=== PATIENT | female | born 1995 | race Caucasian/White ===

== ENCOUNTER 2021-11-07 11:48 | Emergency (ER) | payer MEDICAID, SELFPAY ==
[2021-11-07] VITALS (12 sets, daily range): BP systolic 99–134; BP diastolic 67–89; PULSE 96–126; RESP 16–20; TEMP 35.9; O2SAT 96–100; BMI 29.9
--- NOTE | 2021-11-07 12:54 | ED_ITS ---
HPI - General Adult General Chief complaint: Nausea/Vomiting Stated complaint: Nausea, vomiting Time Seen by Provider: 11/07/21 12:00 History of Present Illness HPI narrative: This 26-year-old female is around 28 weeks and awoke this morning with abdominal pain, nausea, and vomiting. She had some lightheadedness and diaphoresis at that time. She came in by ambulance and thinks that she may have had brief loss of consciousness on the way here. She feels better at the time that I am visiting her. She does not report any bleeding or vaginal discharge. She has not had any fevers or diarrhea. Related Data Home Medications Medication Instructions Recorded Confirmed Iron (ferrous sulfate) 11/07/21 11/07/21 cholecalciferol (vitamin D3) 125 11/07/21 mcg (5,000 unit) tablet (Vitamin D3) olanzapine 5 mg tablet mg 11/07/21 omeprazole 20 mg capsule,delayed mg 11/07/21 release Previous Rx's Medication Instructions Recorded ondansetron HCl 4 mg tablet 4 mg PO Q6H #20 tabs 11/07/21 Allergies Allergy/AdvReac Type Severity Reaction Status Date / Time amoxicillin Allergy Unknown Verified 11/07/21 12:03 Review of Systems Status of ROS: Reports: 10 or more systems reviewed and unremarkable except as noted in History and below Narrative: Constitutional: No fevers, no weight gain or loss. Eyes: No discharge. No vision changes. HENT: No congestion, no sore throat, no ear pain. Cardiovascular: No chest pain, no palpitations. Respiratory: No shortness of breath, no wheezes, no cough. Gastrointestinal: Diffuse abdominal pain with nausea and vomiting. No diarrhea. Genitourinary: No dysuria, no hematuria. Musculoskeletal: Normal range of motion. Skin: No rashes, no pruritis. Neurological: No dizziness, weakness, sensory change, speech change. Endo/Heme/Allergies: No bruising or bleeding. No polydipsia. Pysch: no suicidality, no anxiety, no insomnia. All other systems reviewed and are negative. [facility] Medical History (Updated 11/07/21 @ 15:44 by Kan Espitia MD) Anemia GERD (gastroesophageal reflux disease) Second Social History Smoking Status: Never smoker Do you use any of these nicotine containing products: None Second hand tobacco smoke exposure: No How often do you have a drink containing alcohol: monthly or less How often do you have six or more drinks on one occasion: Never AUDIT-C Alcohol total score: 1 Non-prescribed substance use: denies use Exam Narrative: Exam Narrative: Constitutional: Well-developed, well-nourished, no acute distress. HEENT: Normocephalic, atraumatic. Neck: Normal range of motion. Nontender. Supple. Heart: Regular. No murmurs. Normal rate. Intact distal pulses. Lungs: Clear to auscultation. No chest discomfort. No wheezes, rhonchi, or rales. Abdomen: Normal bowel sounds. Gravid. Mild tenderness. No rebound tenderness. Genitalia: Deferred. Back: No midline tenderness. Normal range of motion. Extremities: Normal range of motion. No injury. Skin: Intact. No rash. Warm. No erythema or pallor. Neurologic: No altered sensation. No weakness. Alert and oriented. Psychiatric: No suicidality. No anxiety or depression. No insomnia. Nursing notes and vitals signs are reviewed. Const: Vital Signs, click to edit/add: Vital Signs - 24 hr 11/07/21 11:58 11/07/21 12:52 11/07/21 12:00 Temperature 96.6 F L 96.6 F L Pulse Rate [Right Pulse Oximeter] 96 97 97 Respiratory Rate 16 18 18 Blood Pressure [Ri ght Upper Arm] 126/82 126/82 120/89 Pulse Oximetry 100 99 99 Oxygen Delivery Me thod Room Air Room Air Room Air 11/07/21 12:30 11/07/21 13:00 11/07/21 13:30 Temperature Pulse Rate [Right Pulse Oximeter] 109 H 102 H 107 H Respiratory Rate 18 16 16 Blood Pressure [Ri ght Upper Arm] 121/76 113/67 122/70 Pulse Oximetry 99 99 96 Oxygen Delivery Wa thod Room Air Room Air Room Air 11/07/21 14:00 11/07/21 14:30 11/07/21 15:00 Temperature Pulse Rate [Right Pulse Oximeter] 104 H 126 H 111 H Respiratory Rate 16 20 18 Blood Pressure [Ri ght Upper Arm] 120/72 134/73 103/79 Pulse Oximetry 99 99 100 Oxygen Delivery Wa thod Room Air Room Air Room Air 11/07/21 15:30 Temperature Pulse Rate [Right Pulse Oximeter] 117 H Respiratory Rate 18 Blood Pressure [Ri ght Upper Arm] 122/74 Pulse Oximetry 99 Oxygen Delivery Me thod Room Air Course Vital Signs Vital signs: Initial Vital Signs Temperature 96.6 F L 11/07/21 11:58 Temperature Source Temporal Artery Scan 11/07/21 11:58 Pulse Rate 96 11/07/21 11:58 Pulse Rhythm 11/07/21 11:58 Respiratory Rate 16 11/07/21 11:58 Blood Pressure 126/82 11/07/21 11:58 Blood Pressure Mean 96 11/07/21 11:58 Blood Pressure Position Supine 11/07/21 11:58 Pulse Oximetry 100 11/07/21 11:58 Oxygen Delivery Method 11/07/21 11:58 Vital Signs Temperature 96.6 F L 11/07/21 11:58 Pulse Rate 96 11/07/21 11:58 Respiratory Rate 16 11/07/21 11:58 Blood Pressure 126/82 11/07/21 11:58 Pulse Oximetry 100 11/07/21 11:58 Oxygen Delivery Method 11/07/21 11:58 Temperature 96.6 F L 11/07/21 12:52 Pulse Rate 117 H 11/07/21 15:30 Respiratory Rate 18 11/07/21 15:30 Blood Pressure 122/74 11/07/21 15:30 Pulse Oximetry 99 11/07/21 15:30 Oxygen Delivery Method 11/07/21 15:30 Medical Decision Making MDM Narrative Medical decision making narrative: This patient comes in with abdominal pain, nausea, and vomiting. She states that the abdominal pain is not constant. At times there is absolutely no pain and then other times it arises. She is about 28 weeks and was evaluated by the OB department with sabrina aquino. I also used bedside ultrasound to look directly at her . These results are reassuring. She received IV fluids, and Zofran. She has had some improvement of her symptoms but continues to have episodes of abdominal pain. Her lab results returned with normal findings except for a significant increase in her white blood cell count of her blood. A couple weeks ago it was measured at 810 today it is at 18. She has not had any fevers. I did connect with the OB physician on-call, Dr. Sanchez, to review these matters. She recommended the patient follow-up with OBGYN clinic or return if recurrent or worsening symptoms happen. Lab Data Labs: Lab Results 11/07/21 11/07/21 11/07/21 Range/Units 13:29 13:29 14:25 WBC 18.22 H (4.50-11.00) K/uL RBC 3.89 L (4.00-5.20) m/uL Hgb 11.6 L (12.0-16.0) gm/dL Hct 34.0 (33.0-51.0) % MCV 87 (80-100) fL MCH 30 (26-34) pg MCHC 34 (32-36) gm/dL RDW Coeff of Ana M 12.7 (11.5-15.5) % Plt Count 261 (140-440) K/uL Neut % (Auto) 86.0 H (42.0-72.0) % Lymph % (Auto) 7.1 L (20-44) % [place] % (Auto) 5.6 (0.0-11.0) % Eos % (Auto) 0.3 (0.0-7.0) % Baso % (Auto) 0.1 (0.0-3.0) % Neut # (Auto) 15.70 H (1.7-7.0) K/uL Lymph # (Auto) 1.30 (0.90-2.90) K/uL [place] # (Auto) 1.00 H (0.00-0.90) K/UL Eos # (Auto) 0.10 (0.00-0.50) K/uL Baso # (Auto) 0.00 (0.00-0.30) K/uL Abs Immat Gran (auto) 0.16 (0.00-0.30) K/uL Sodium 136 (135-149) mmol/L Potassium 3.9 (3.6-5.1) mmol/L Chloride 104 (96-114) mmol/L Carbon Dioxide 23 (20-32) mmol/L BUN 8 (5-24) mg/dL Creatinine 0.5 (0.5-1.5) mg/dL Estimated Creat Clear 147.23 Estimated GFR 133 ml/min Glucose 86 (60-115) mg/dL Calcium 8.6 (8.4-10.6) mg/dL Urine Color Yellow (Yellow) Urine Appearance Clear (Clear) Urine pH 6.0 (5.0-8.5) Ur Specific [place] >= 1.030 (1.000-1.030) Urine Protein 1+ A (Negative) Urine Glucose (UA) Negative (Negative) Urine Ketones 4+ A (Negative) Urine Blood Negative (Negative) Urine Nitrite Negative (Negative) Urine Bilirubin 1+ A (Negative) Urine Urobilinogen 1.0 (0.2-1.0) Ur Leukocyte Esterase Negative (Negative) Urine RBC 0-2 (0-2) Urine WBC 2-5 (0-5) Ur Squamous Epith Cells Few (None-Few) Calcium Oxalate Crystal Moderate A (None) Urine Bacteria Moderate A (None) Discharge Plan Discharge Clinical Impression: Gastroenteritis, Patient Disposition: Home, Self-Care Condition: Stable Instructions: Acute Nausea and Vomiting (ED) Additional Instructions: Take medication as needed and indicated. Follow up with OBGYN clinic or return if recurrent or worsening symptoms happen. Prescriptions: New ondansetron HCl 4 mg tablet 4 mg PO Q6H Qty: 20 0RF No Action olanzapine 5 mg tablet Label Comments: TAKE 1 TABLET BY MOUTH THREE TIMES DAILY NEEDED omeprazole 20 mg capsule,delayed release(DR/EC) cholecalciferol (vitamin D3) [Vitamin D3] 125 mcg (5,000 unit) tablet Label Comments: TAKE 1 TABLET BY MOUTH DAILY WITH A FATTY FOOD Iron (ferrous sulfate) Follow Up/Referrals: Juliet Farrell MD [Primary Care Provider] - Stand Alone Forms: [facility] Info Instructions
[2021-11-07] MEDS: 0.9 % SODIUM CHLORIDE 1000 ml 1,000 ML IV (13:27)
[2021-11-07] MEDS: ONDANSETRON 2 MG/ML inj 4 MG IVP (13:27)
[2021-11-07] MEDS: PANTOPRAZOLE SODIUM 40 MG INJ IVP (13:27)
[2021-11-07 13:35] LABS: Basophils Percent Auto 0.1 % (0.0-3.0); Eosinophils Percent Auto 0.3 % (0.0-7.0); Hemoglobin* 11.6 gm/dL (12.0-16.0); Immature Granulocytes Abs Auto 0.16 K/uL (0.00-0.30); Lymphocytes Percent Auto 7.1 % (20-44); Mean Corpuscular HGB Conc 34 gm/dL (32-36); Mean Corpuscular Hemoglobin 30 pg (26-34); Mean Corpuscular Volume 87 fL (80-100); Monocytes Percent Auto 5.6 % (0.0-11.0); Platelet Count* 261 K/uL (140-440); RDW Coefficient of Variation % 12.7 % (11.5-15.5); Red Blood Count 3.89 m/uL (4.00-5.20); White Blood Count* 18.22 K/uL (4.50-11.00)
[2021-11-07 13:38] LABS: Slide Review Reflex No
[2021-11-07 13:51] LABS: Chloride* 104 mmol/L (96-114); Potassium* 3.9 mmol/L (3.6-5.1); Sodium* 136 mmol/L (135-149)
[2021-11-07 13:54] LABS: Blood Urea Nitrogen* 8 mg/dL (5-24); Calcium* 8.6 mg/dL (8.4-10.6); Carbon Dioxide* 23 mmol/L (20-32); Creatinine* 0.5 mg/dL (0.5-1.5); Est. Creatinine Clearance* 147.23; Estimated Glomerular Filt Rate 133 ml/min; Glucose* 86 mg/dL (60-115)
--- NOTE | 2021-11-07 14:09 | PC.NURSE ---
per OB staff the FHT is 140. have them down doing a NST on patient. patient is laying on the left sideeeee
--- NOTE | 2021-11-07 14:22 | PC.OBNST ---
Was asked to come to ED to do an NST on 28 week pt who is experiencing nausea, vomiting, and lower abdominal pain. Pt. had a reactive NST that was appropriate for her gestational age. Asked pt. to taryn her contractions with the button, and they ranged anywhere from 1.5-16 minutes apart. Pt. does not appear to be in pain during these. Pt. receiving IV fluids per ED. Labs done per ED. See [facility] for NST documentation. *Note to provider: If an addendum is required, open the patient's chart and click on the note under the Nurse/Allied Health tab.
[2021-11-07 14:44] LABS: Appearance Urine Clear (Clear); Bilirubin Urine 1+ (Negative); Blood Urine Negative (Negative); Color Urine Yellow (Yellow); Glucose Urine Negative (Negative); Ketones Urine 4+ (Negative); Leukocyte Esterase Urine Negative (Negative); Nitrite Urine Negative (Negative); Protein Urine 1+ (Negative); Specific Gravity Urine >= 1.030 (1.000-1.030)
[2021-11-07 15:07] LABS: RBC Urine 0-2 (0-2); Squamous Epithelial Cell Urine Few (None-Few)
[2021-11-07 15:08] LABS: Bacteria Urine Moderate
[2021-11-07 15:10] LABS: Calcium Oxalate Crystals Urine Moderate
--- NOTE | 2021-11-07 15:27 | ED.NURSE ---
patient is still having pain in the lower abdomen and at the umbilicus below. rated at 5/10 scale and is feeling nauseated. patient is watching tv and resting in room. updated Dr. Espitia and is planning to go talk with patient and consulted with Dr. Sanchez
--- NOTE | 2021-11-08 12:23 | PC.OBNST ---
NST Note NST Note Start: 11/08/21 12:15 Freq: ONCE Status: Active Protocol: Document 11/07/21 14:00 ANNA (Rec: 11/08/21 12:20 AM [id number]) NST Note 2 Para (# of births) 1 Patient Presented with Complaint(s) of Nausea and vomiting Reactive Yes Appropriate for Gestational Age Yes Nikunj Rene Date 11/07/21 Reactive Yes Appropriate for Gestational Age Yes Ya Horta Date 11/07/21 OB NST charge Yes Complete NST Note via Write Note Yes The provider's electronic signature indicates the NST is reactive/appropriate for gestational age. *Note to provider: If an addendum is required, open the patient's chart and click on the note under the Nurse/Allied Health tab.
--- NOTE | 2021-11-08 13:56 | PC.OBNST ---
NST Note NST Note Start: 11/08/21 12:15 Freq: ONCE Status: Active Protocol: Document 11/07/21 14:00 ANNA (Rec: 11/08/21 12:20 AM [id number]) NST Note 2 Para (# of births) 1 Patient Presented with Complaint(s) of Nausea and vomiting Reactive Yes Appropriate for Gestational Age Yes Niknuj Rene Date 11/07/21 Reactive Yes Appropriate for Gestational Age Yes Ya Horta Date 11/07/21 OB NST charge Yes Complete NST Note via Write Note Yes The provider's electronic signature indicates the NST is reactive/appropriate for gestational age. *Note to provider: If an addendum is required, open the patient's chart and click on the note under the Nurse/Allied Health tab.
== END 2021-11-07 16:40 | disposition home or self-care (01) ==
PROVIDERS: Emergency Provider Emergency Medicine Emergency Medical Services; PCP Family Medicine
DX: K52.9 Noninfective gastroenteritis and colitis, unspecified (principal); Z3A.28 28 weeks gestation of pregnancy
CPT/HCPCS: 36415; 59025; 80048; 81001; 85025; 87086; 96374; 96375; 99284; C9113; J2405; J7030

== ENCOUNTER 2021-11-27 20:07 | Outpatient (CLI) | payer MEDICAID, SELFPAY ==
[2021-11-27] VITALS (13 sets, daily range): BP systolic 124; BP diastolic 80; PULSE 93–120; TEMP 36.8; O2SAT 96–99
[2021-11-27 20:54] LABS: Appearance Urine Slightly Cloudy (Clear); Bilirubin Urine Negative (Negative); Blood Urine Negative (Negative); Color Urine Yellow (Yellow); Glucose Urine 1+ (Negative); Ketones Urine Negative (Negative); Leukocyte Esterase Urine Negative (Negative); Nitrite Urine Negative (Negative); Protein Urine Negative (Negative); Urobilinogen Urine 0.2 (0.2-1.0)
[2021-11-27 21:11] LABS: Amorphous Sediment Urine Few; Bacteria Urine Moderate; RBC Urine 0-2 (0-2); Squamous Epithelial Cell Urine Few (None-Few); WBC Urine 0-2 (0-5)
[2021-11-27 21:15] LABS: Amnisure Rom* Negative
--- NOTE | 2021-11-27 22:03 | PC.OBNST ---
NST Note NST Note Start: 11/27/21 20:16 Freq: ONCE Status: Discharge Protocol: Document 11/27/21 21:25 MICHAEL (Rec: 11/27/21 22:03 MICHAEL [id number]) NST Note 2 Para (# of births) 1 EDC 01/25/22 Gestational Age In Weeks & Days 31 Weeks & 4 Days High Risk Factors Diabetes - Gestational Diet Controlled Patient Presented with Complaint(s) of Contractions/cramping,Pain, Other If Pain, describe location Cramping in abdomen and low back, lightning crotch Other Complaints Lost mucus plug, watery discharge associated with this Reactive Yes Appropriate for Gestational Age Yes RN Raúl RN Date 11/27/21 Reactive Yes Appropriate for Gestational Age Yes SANTIAGO Torres RN Date 11/27/21 OB NST charge Yes Complete NST Note via Write Note Yes The provider's electronic signature indicates the NST is reactive/appropriate for gestational age. *Note to provider: If an addendum is required, open the patient's chart and click on the note under the Nurse/Allied Health tab.
--- NOTE | 2021-11-27 22:04 | PC.OBNST ---
NST Note NST Note Start: 11/27/21 20:16 Freq: ONCE Status: Discharge Protocol: Document 11/27/21 21:25 MICHAEL (Rec: 11/27/21 22:03 MICHAEL [id number]) NST Note 2 Para (# of births) 1 EDC 01/25/22 Gestational Age In Weeks & Days 31 Weeks & 4 Days High Risk Factors Diabetes - Gestational Diet Controlled Patient Presented with Complaint(s) of Contractions/cramping,Pain, Other If Pain, describe location Cramping in abdomen and low back, lightning crotch Other Complaints Lost mucus plug, watery discharge associated with this Reactive Yes Appropriate for Gestational Age Yes RN Raúl RN Date 11/27/21 Reactive Yes Appropriate for Gestational Age Yes SANTIAGO Torres RN Date 11/27/21 OB NST charge Yes Complete NST Note via Write Note Yes The provider's electronic signature indicates the NST is reactive/appropriate for gestational age. *Note to provider: If an addendum is required, open the patient's chart and click on the note under the Nurse/Allied Health tab.
== END 2021-11-27 21:31 | disposition home or self-care (01) ==
LOC: OB 20:14 → OB OUT 11-28 11:39
PROVIDERS: PCP Family Medicine; Visit Provider Family Medicine
DX: O47.03 False labor before 37 completed weeks of gestation, third trimester (principal); Z3A.31 31 weeks gestation of pregnancy
CPT/HCPCS: 59025; 81003; 81015; 84112; 87086; 99213

== ENCOUNTER 2021-12-09 20:53 | Emergency (ER) | payer BC, SELFPAY ==
[2021-12-09 21:06] VITALS: BP 103/71; PULSE 109; RESP 18; TEMP 36.3; O2SAT 100; BMI 30.2
--- NOTE | 2021-12-09 21:27 | ED_ITS ---
HPI - General Adult General Chief complaint: Nausea/Vomiting Stated complaint: 33 weeks , vomiting, high blood sugar Time Seen by Provider: 12/09/21 21:14 History of Present Illness HPI narrative: Pt is a 26 year old woman who presents with nausea and vomiting the last several days. She has diet controlled gestational diabetes as well as anemia. Pt has some dysuria as well. Her has otherwise been going without any further issues per pt. No vaginal discharge or contractions. No overt abd pain. Pt comes in as she feels dehydrated. She took Zofran at home with mild improvement. No fever or chills. Related Data Home Medications Medication Instructions Recorded Confirmed Iron (ferrous sulfate) 11/07/21 11/07/21 cholecalciferol (vitamin D3) 125 11/07/21 mcg (5,000 unit) tablet (Vitamin D3) olanzapine 5 mg tablet mg 11/07/21 omeprazole 20 mg capsule,delayed mg 11/07/21 release duloxetine 60 mg capsule,delayed mg PO 12/09/21 release Previous Rx's Medication Instructions Recorded ondansetron HCl 4 mg tablet 4 mg PO Q6H #20 tabs 11/07/21 Allergies Allergy/AdvReac Type Severity Reaction Status Date / Time amoxicillin Allergy Unknown Verified 12/09/21 21:10 Review of Systems Status of ROS: Reports: 10 or more systems reviewed and unremarkable except as noted in History and below [facility] Medical History Anemia GERD (gastroesophageal reflux disease) Second Social History Smoking Status: Former smoker Do you use any of these nicotine containing products: None Second hand tobacco smoke exposure: No How often do you have a drink containing alcohol: never AUDIT-C Alcohol total score: 0 Non-prescribed substance use: denies use Exam Narrative: Exam Narrative: EXAM GENERAL: Patient appears comfortable and well. EYES: No scleral icterus. ENT: Tympanic membranes and oropharynx normal. THYROID: no thyroid nodules or thyromegaly. LYMPH: No supraclavicular or cervical lymphadenopathy. SKIN: Visible skin seen during exam normal or with benign process only. EXT: No dependent lower extremity pedal edema. HEART: Regular rate and rhythm with no murmurs, rubs, or gallops. LUNGS: Clear to auscultation bilaterally with no crackles or wheezes. ABD: Roughly 33 week uterus palpated. No pain to palpation normal bowel sounds throughout. PSYCH: Good eye contact, speech is not pressured. Const: Vital Signs, click to edit/add: Vital Signs - 24 hr 12/09/21 21:06 12/09/21 22:55 Temperature 97.3 F L Pulse Rate [Left P ulse Oximeter] 109 H 96 Respiratory Rate 18 18 Blood Pressure [Ri ght Upper Arm] 103/71 99/63 Pulse Oximetry 100 100 Oxygen Delivery Me thod Room Air Course Course Hospital Course: IV established. UA CBC basic metabolic panel lactate collected 1 L of normal saline given. Reevaluation(s) Reevaluation #1: OB assessment normal Urine Protein/Cr ratio less than 0.3. Consultations Consultation #1: Pt feeling better with hydration. Spoke to Nilsa HASTINGS who recommends urine protein/cr ratio which is now pending. Continue hydration. Vital Signs Vital signs: Initial Vital Signs Temperature 97.3 F L 12/09/21 21:06 Temperature Source Temporal Artery Scan 12/09/21 21:06 Pulse Rate 109 H 12/09/21 21:06 Respiratory Rate 18 12/09/21 21:06 Blood Pressure 103/71 12/09/21 21:06 Blood Pressure Mean 81 12/09/21 21:06 Blood Pressure Position Sitting 12/09/21 21:06 Pulse Oximetry 100 12/09/21 21:06 Oxygen Delivery Method 12/09/21 21:06 Vital Signs Temperature 97.3 F L 12/09/21 21:06 Pulse Rate 109 H 12/09/21 21:06 Respiratory Rate 18 12/09/21 21:06 Blood Pressure 103/71 12/09/21 21:06 Pulse Oximetry 100 12/09/21 21:06 Oxygen Delivery Method 12/09/21 21:06 Temperature 97.3 F L 12/09/21 21:06 Pulse Rate 96 12/09/21 22:55 Respiratory Rate 18 12/09/21 22:55 Blood Pressure 99/63 12/09/21 22:55 Pulse Oximetry 100 12/09/21 22:55 Oxygen Delivery Method 12/09/21 21:06 Medical Decision Making MDM Narrative Medical decision making narrative: Pt is 33 weeks with nausea vomiting and a small amount of protein in her urine. Protein/Cr ratio reassuring. Pt feeling better after hydration. Pt had unremarkable OB assessment. Differential Diagnosis Differential Diagnosis: , Pre-eclampsia, Gastroenteritis, Viral Syndrome Lab Data Labs: Lab Results 12/09/21 12/09/21 12/09/21 Range/Units 21:20 21:20 21:42 WBC 7.52 (4.50-11.00) K/uL RBC 3.81 L (4.00-5.20) m/uL Hgb 11.1 L (12.0-16.0) gm/dL Hct 33.0 (33.0-51.0) % MCV 87 (80-100) fL MCH 29 (26-34) pg MCHC 34 (32-36) gm/dL RDW Coeff of Ana M 13.5 (11.5-15.5) % Plt Count 230 (140-440) K/uL Neut % (Auto) 71.8 (42.0-72.0) % Lymph % (Auto) 17.2 L (20-44) % [place] % (Auto) 8.4 (0.0-11.0) % Eos % (Auto) 1.5 (0.0-7.0) % Baso % (Auto) 0.3 (0.0-3.0) % Neut # (Auto) 5.41 (1.7-7.0) K/uL Lymph # (Auto) 1.30 (0.90-2.90) K/uL [place] # (Auto) 0.60 (0.00-0.90) K/UL Eos # (Auto) 0.11 (0.00-0.50) K/uL Baso # (Auto) 0.02 (0.00-0.30) K/uL Abs Immat Gran (auto) 0.06 (0.00-0.30) K/uL Sodium (135-149) mmol/L Potassium (3.6-5.1) mmol/L Chloride (96-114) mmol/L Carbon Dioxide (20-32) mmol/L BUN (5-24) mg/dL Creatinine (0.5-1.5) mg/dL Estimated Creat Clear Estimated GFR ml/min Glucose (60-115) mg/dL Lactate (0.5-1.9) mmol/L Calcium (8.4-10.6) mg/dL Urine Color Yellow (Yellow) Urine Appearance Clear (Clear) Urine pH 6.0 (5.0-8.5) Ur Specific [place] 1.015 (1.000-1.030) Urine Protein 1+ A (Negative) Urine Glucose (UA) Negative (Negative) Urine Ketones Negative (Negative) Urine Blood Negative (Negative) Urine Nitrite Negative (Negative) Urine Bilirubin Negative (Negative) Urine Urobilinogen 2.0 A (0.2-1.0) Ur Leukocyte Esterase Negative (Negative) Urine RBC 0-2 (0-2) Urine WBC 0-2 (0-5) Ur Squamous Epith Cells Few (None-Few) Amorphous Sediment Few A (None) Urine Bacteria Many A (None) Urine Creatinine 117.7 mg/dL Protein/Creatinin Ratio 0.20 H (0-0.19) Urine Total Protein 29 mg/dL 12/09/21 12/09/21 Range/Units 21:42 21:44 WBC (4.50-11.00) K/uL RBC (4.00-5.20) m/uL Hgb (12.0-16.0) gm/dL Hct (33.0-51.0) % MCV (80-100) fL MCH (26-34) pg MCHC (32-36) gm/dL RDW Coeff of Ana M (11.5-15.5) % Plt Count (140-440) K/uL Neut % (Auto) (42.0-72.0) % Lymph % (Auto) (20-44) % [place] % (Auto) (0.0-11.0) % Eos % (Auto) (0.0-7.0) % Baso % (Auto) (0.0-3.0) % Neut # (Auto) (1.7-7.0) K/uL Lymph # (Auto) (0.90-2.90) K/uL [place] # (Auto) (0.00-0.90) K/UL Eos # (Auto) (0.00-0.50) K/uL Baso # (Auto) (0.00-0.30) K/uL Abs Immat Gran (auto) (0.00-0.30) K/uL Sodium 134 L (135-149) mmol/L Potassium 3.8 (3.6-5.1) mmol/L Chloride 103 (96-114) mmol/L Carbon Dioxide 23 (20-32) mmol/L BUN 8 (5-24) mg/dL Creatinine 0.5 (0.5-1.5) mg/dL Estimated Creat Clear 147.23 Estimated GFR 133 ml/min Glucose 103 (60-115) mg/dL Lactate 0.9 (0.5-1.9) mmol/L Calcium 8.4 (8.4-10.6) mg/dL Urine Color (Yellow) Urine Appearance (Clear) Urine pH (5.0-8.5) Ur Specific [place] (1.000-1.030) Urine Protein (Negative) Urine Glucose (UA) (Negative) Urine Ketones (Negative) Urine Blood (Negative) Urine Nitrite (Negative) Urine Bilirubin (Negative) Urine Urobilinogen (0.2-1.0) Ur Leukocyte Esterase (Negative) Urine RBC (0-2) Urine WBC (0-5) Ur Squamous Epith Cells (None-Few) Amorphous Sediment (None) Urine Bacteria (None) Urine Creatinine mg/dL Protein/Creatinin Ratio (0-0.19) Urine Total Protein mg/dL Discharge Plan Discharge Clinical Impression: Gastroenteritis Condition: Stable Instructions: Acute Nausea and Vomiting (ED) Additional Instructions: Continue current medications Follow up with your doctor Lyndsey as needed for nausea Advance diet as tolerated Discharge Diet: Regular Prescriptions: No Action olanzapine 5 mg tablet Label Comments: TAKE 1 TABLET BY MOUTH THREE TIMES DAILY NEEDED omeprazole 20 mg capsule,delayed release(DR/EC) cholecalciferol (vitamin D3) [Vitamin D3] 125 mcg (5,000 unit) tablet Label Comments: TAKE 1 TABLET BY MOUTH DAILY WITH A FATTY FOOD Iron (ferrous sulfate) ondansetron HCl 4 mg tablet 4 mg PO Q6H Qty: 20 0RF duloxetine 60 mg capsule,delayed release(DR/EC) PO Label Comments: TAKE 1 CAPSULE BY MOUTH TWICE DAILY Follow Up/Referrals: Juliet Farrell MD [Primary Care Provider] - Stand Alone Forms: [employer] Info Instructions
[2021-12-09 21:29] LABS: Appearance Urine Clear (Clear); Bilirubin Urine Negative (Negative); Blood Urine Negative (Negative); Color Urine Yellow (Yellow); Glucose Urine Negative (Negative); Ketones Urine Negative (Negative); Leukocyte Esterase Urine Negative (Negative); Nitrite Urine Negative (Negative); Protein Urine 1+ (Negative); Specific Gravity Urine 1.015 (1.000-1.030)
[2021-12-09 21:48] LABS: Lactate* 0.9 mmol/L (0.5-1.9)
[2021-12-09 21:50] LABS: Basophils Absolute Auto 0.02 K/uL (0.00-0.30); Basophils Percent Auto 0.3 % (0.0-3.0); Eosinophils Absolute Auto 0.11 K/uL (0.00-0.50); Eosinophils Percent Auto 1.5 % (0.0-7.0); Hemoglobin* 11.1 gm/dL (12.0-16.0); Immature Granulocytes Abs Auto 0.06 K/uL (0.00-0.30); Lymphocytes Percent Auto 17.2 % (20-44); Mean Corpuscular HGB Conc 34 gm/dL (32-36); Mean Corpuscular Hemoglobin 29 pg (26-34); Mean Corpuscular Volume 87 fL (80-100); Monocytes Percent Auto 8.4 % (0.0-11.0); Neutrophils Absolute Auto 5.41 K/uL (1.7-7.0); Neutrophils Percent Auto 71.8 % (42.0-72.0); Platelet Count* 230 K/uL (140-440); RDW Coefficient of Variation % 13.5 % (11.5-15.5); Red Blood Count 3.81 m/uL (4.00-5.20); White Blood Count* 7.52 K/uL (4.50-11.00)
[2021-12-09 21:51] LABS: Slide Review Reflex No
[2021-12-09] MEDS: 0.9 % SODIUM CHLORIDE 1000 ml 1,000 ML IV ×2 (21:54→23:52)
[2021-12-09 21:59] LABS: RBC Urine 0-2 (0-2); WBC Urine 0-2 (0-5)
[2021-12-09 22:00] LABS: Amorphous Sediment Urine Few; Bacteria Urine Many; Squamous Epithelial Cell Urine Few (None-Few)
[2021-12-09 22:03] LABS: Chloride* 103 mmol/L (96-114); Potassium* 3.8 mmol/L (3.6-5.1); Sodium* 134 mmol/L (135-149)
[2021-12-09 22:05] LABS: Creatinine* 0.5 mg/dL (0.5-1.5); Est. Creatinine Clearance* 147.23; Estimated Glomerular Filt Rate 133 ml/min
[2021-12-09 22:06] LABS: Blood Urea Nitrogen* 8 mg/dL (5-24); Calcium* 8.4 mg/dL (8.4-10.6); Carbon Dioxide* 23 mmol/L (20-32); Glucose* 103 mg/dL (60-115)
--- NOTE | 2021-12-09 22:53 | PC.NURSE ---
RN went to assess pt. in the ED, unable to chart in OB in ED assessment intervention. Patient is a who's is complicated by newly diagnosed GDM. Patient reports that her blood glucoses have been good up until the last week when she has had some higher readings. Pt. reports that her primary care provider has had her testing her urine ketones, which have been elevated as well. Pt. states that she has been vomiting for over 24 hours and has had a few episodes of diarrhea. She has not been having any contractions other than some mild kym thomas which she reports have not even been timeable. Baby is moving as normal, she is not having any sort of leaking of fluid or vaginal bleeding. Patient reports that this has been a fairly uncomplicated until a few weeks ago. No other OB related concerns. Patient had a reactive NST with no contractions noted, baseline of 135bpm, accels present, decels absent. Bhavesh Crowe RNC
[2021-12-09 22:55] VITALS: BP 99/63; PULSE 96; RESP 18; O2SAT 100
[2021-12-09] MEDS: ONDANSETRON 2 MG/ML inj 4 MG IVP (23:00)
[2021-12-09 23:22] LABS: Total Protein Urine 29 mg/dL
[2021-12-09 23:23] LABS: Creatinine Urine 117.7 mg/dL
[2021-12-09] MEDS: MAG HYDROX/ALUMINUM HYD/SIMETH 30 ML ORAL.SUSP PO (23:52)
[2021-12-10 00:56] VITALS: BP 100/57; PULSE 93; RESP 18; O2SAT 100
--- NOTE | 2021-12-10 09:15 | PC.OBNST ---
NST Note NST Note Start: 12/09/21 21:45 Freq: ONCE Status: Discharge Protocol: Document 12/09/21 22:53 ROBERT (Rec: 12/10/21 08:21 AM [id number]) NST Note 2 Para (# of births) 1 EDC 01/25/22 Gestational Age In Weeks & Days 33 Weeks & 3 Days High Risk Factors Diabetes - Gestational Diet Controlled Patient Presented with Complaint(s) of Nausea and vomiting Other Complaints See Nurses note Reactive Yes Appropriate for Gestational Age Yes RN Tana Crowe; RNC Date 12/09/21 Reactive Yes Appropriate for Gestational Age Yes Macho Worley: SANTIAGO Date 12/09/21 OB NST charge Yes Complete NST Note via Write Note Yes The provider's electronic signature indicates the NST is reactive/appropriate for gestational age. *Note to provider: If an addendum is required, open the patient's chart and click on the note under the Nurse/Allied Health tab.
== END 2021-12-10 01:00 | disposition home or self-care (01) ==
PROVIDERS: Emergency Provider Internal Medicine; PCP Family Medicine
DX: K52.9 Noninfective gastroenteritis and colitis, unspecified (principal); O26.893 Other specified pregnancy related conditions, third trimester; Z3A.33 33 weeks gestation of pregnancy
CPT/HCPCS: 36415; 59025; 80048; 81003; 81015; 82570; 83605; 84156; 85025; 87086; 96361; 96374; 99284; A9270; J2405; J7030

== ENCOUNTER 2022-01-07 13:56 | Outpatient (CLI) | payer BC, SELFPAY ==
--- OUTSIDE RECORDS SUMMARY | 2022-01-07 13:58 | XMS_ITS | Clinical Summary ---
:1995 Author Organization [facility] [place] [address] Care Team Providers Name Role Phone Juliet Horn MD Primary Care Provider [phone] Unavailable Allergies Active Allergy Reactions Severity Noted Date Comments Amoxicillin 07/10/2007 Parents do not give this. Siblings have an allergy to i t. Medications Medication Sig Dispensed Refills Start End Status Date Date albuterol Inhale 3 mL via 1 box 0 02/16/20 Acti ve (PROVENTIL) 0.083 % a nebulizer 17 neb every 4 hours solutionIndications: if needed. Cough albuterol HFA Inhale 1-2 1 Inhaler 1 01/23/20 Activ e (PROVENTIL HFA) 90 Puffs by mouth 18 mcg/actuation every 4 hours inhalerIndications: if needed. Mild intermittent asthma without complication vit 28/iron Take 1 Tablet 0 06/14/19 Active fum/folic by mouth once 22 (multivitamin daily. folic acid 1 mg) OLANzapine (ZYPREXA) 1 Tablet (5 mg) 0 06/18/19 Active 5 mg tablet 3 times daily. 22 NEEDED DULoxetine Take 1 Capsule 180 Capsule 0 06/18/19 Ac tive (CYMBALTA) 60 mg (60 mg) by 22 Delayed-release mouth 2 times capsuleIndications: daily. Posttraumatic stress disorder ferrous Take by mouth. 90 Capsule 1 11/01/19 Acti ve bis-glycinate 22 chelate (iron bisglycinate chelate) 28 mg iron capIndications: Anemia during in second trimester ondansetron (ZOFRAN) Take 4 mg by 0 11/08/19 Active 4 mg tablet mouth four 22 times daily 6 hours apart. acetone, urine, test For personal 50 Each 1 11/30/19 Active (Ketone Urine Test) use once daily 22 stripIndications: due to Gestational diabetes gestational mellitus (GDM) in diabetes third trimester, gestational diabetes method of control unspecified blood sugar Dispense item 150 Each 3 11/30/19 Acti ve diagnostic covered by pt 22 (Accu-Chek Guide ins. O99.810 test strips) Gestational DM stripIndications: - Test 4 Gestational diabetes times/day. New mellitus (GDM) in diabetes third trimester, gestational diabetes method of control unspecified lancets (Accu-Chek Dispense item 100 Each 0 11/30/19 Active Softclix covered by pt 22 Lancets)Indications: ins. O99.810 Gestational diabetes Gestational DM mellitus (GDM) in - Test 4 third trimester, times/day. New gestational diabetes diabetes method of control unspecified ondansetron (ZOFRAN Place 1-2 30 Tablet 0 12/27/19 Active ODT) 4 mg Tablets (4-8 22 disintegrating mg) on the tabletIndications: tongue every 8 Nausea and vomiting, hours if needed unspecified vomiting for type Nausea/Vomiting . omeprazole Take 2 Capsules 180 Capsule 1 12/27/19 A ctive (PRILOSEC) 20 mg (40 mg) by 22 Delayed-Release mouth once capsuleIndications: daily before a Gastroesophageal meal. reflux disease, unspecified whether esophagitis present omeprazole Take 1 Capsule 90 Capsule 1 10/17/19 Dis continued (PRILOSEC) 20 mg (20 mg) by 22 022 (R eorder Delayed-Release mouth once (E- cancel not capsuleIndications: daily before a sent)) Gastroesophageal meal. reflux disease, unspecified whether esophagitis present Active Problems Problem Noted Date , supervision, high-risk, third trimester 08/2021 Overview: Growth ultrasound 12/30/21 FINDINGS: Sonographic imaging demonstrates a singl e living intrauterine gestation. Fetus demonstrates a regular cardiac rate of 125 beats per minute. Fetus has a vertex position. The umbilical artery demonstrates adequate diastolic blood flow. The S/D ratio measures 2.2. The amniotic fluid volume appears normal and there is a single deepest pocket measurement of 8.4 cm. The fetus was active and demonstrated nor mal breathing movements. There was leela l flexion and extension of the trunk and extremities. BPD 50th percentile. HC 43rd percentile. Abdominal circumference greater than 98th percentile. FL 28th percentile. Sonographic gestational age 37 weeks 0 days and sonographic due date 01/20/2022. HC/AC 0.94 (0.93-1.11). Estimated weight 3202 grams,82nd percentile. IMPRESSION: Normal biophysical profile score of 8 ou t of 8. Sonographic gestational age 37 weeks 0 d ays and sonographic due date 01/20/2022. Sonographic age is 5 days ahead of the clinical age. Estimated weight 82nd percentile. Abdominal circumference greater than 98th percentile. Diet controlled gestational diabetes mellitus (GDM) in third trimester 12/01/2021 06/01/2021 Overview: Formatting of this note is dif ferent from the original. Component Latest Ref Rng & Units 12/20/2021 Vaginal/Rectal OB Strep B PCR Negative Estimated Date of Delivery: 12/22/21 No LMP recorded. Patient is . Last Tdap- 10/31/2021 Last Flu vaccine- 01/15/2018 Glucose (GTT) result- Component Latest Ref Rng & Units 10/31/2021 HEMOGLOBIN 12.0 - 16.0 g/dL 10.4 (L) MCV 80 - 100 fL 88 GLUCOSE,GESTATIONAL 65 - 140 mg/dL 143 (H) 20 week US: IMPRESSION: Intrauterine at 19w 2d. presentation is transverse, head t o maternal left. EFW 286 grams, percentile: 47. Growth parameters and estimated we ight are appropriate for the gestational age. No major structural anomalies were identified. No markers for aneuploidy were identifie d. Normal Deepest Vertical Pocket of amniot ic fluid: 5.42 cm. Placental location: Posterior. There is no evidence of placenta previa. The transabdominal cervical length is 3. 5 cm. ?? RECOMMENDATIONS: -Return to primary provider for continue d care. -Follow-up ultrasounds as clinically ind icated. ?? Allergies Allergen Reactions ? ? Amoxicillin Parents do not give this. Siblings have an allergy to it. OB History Para Term AB Living 2 0 0 0 0 0 SAB IAB Ectopic Multiple Live Births 0 0 0 0 0 # Outcome Date GA Lbr Leeroy/2nd Weight Sex Delivery Anes PTL Lv 2 Current 1 Create lab flowsheet for OB labs- Component Latest Ref Rng & Units 06/13/2021 06/13/2021 11:50 AM 11:50 AM 11:50 AM HEMOGLOBIN 12.0 - 16.0 g/dL 13.7 MCV 80 - 100 fL 85 RUBELLA IGG ANTIBODY Positive 3.67 VARICELLA ZOSTER IGG ANTIBODY ANTIBODY SCREEN Negative Negative SPECIMEN EXPIRATION DATE/TIME 06/16/21 23:59 CHLAMYDIA PROBE N GONORRHOEAE PROBE HIV-1/HIV-2 ANTIBODY Non-Reactive Non-Reactive ABORH O Rh Positive HBSAG Nonreactive Nonreactive TREPONEMA PALLIDUM Negative Negative HEMOGLOBIN A1C MONITORING (POCT) <=6.4 % 5.0 HEPATITIS C ANTIBODY Non-Reactive Non-Reactive Component Latest Ref Rng & Units 06/13/2021 06/13/2021 11:50 AM 11:50 AM 12:03 PM HEMOGLOBIN 12.0 - 16.0 g/dL MCV 80 - 100 fL RUBELLA IGG ANTIBODY VARICELLA ZOSTER IGG ANTIBODY Positive 234.2 ANTIBODY SCREEN Negative SPECIMEN EXPIRATION DATE/TIME CHLAMYDIA PROBE Negative N GONORRHOEAE PROBE Negative HIV-1/HIV-2 ANTIBODY Non-Reactive ABORH HBSAG Nonreactive TREPONEMA PALLIDUM Negative HEMOGLOBIN A1C MONITORING (POCT) <=6.4 % HEPATITIS C ANTIBODY Non-Reactive Past Medical History: . Date ? ? Concussion with no loss of consciousness 07/18/2011 ? ? Patent foramen ovale 12/20/2007 ? ? Streptococcal sore throat 09/16/2008 ? ? Unspecified asthma(493.90) ? ? Varicella without mention of complication 05/1998 had disease at age 3 years ? ? Whooping cough, unspecified organism Past Surgical History: . Laterality Date ? ? TONSIL AND ADENOIDECTOMY 10/09/2008 ? ? WISDOM TEETH EXTRACTION 2017 No data on file. Problems (from 05/31/21 to pre sent) No problems associated with this episod e. Level 2 ultrasound Indications Code 19 weeks gestation of Z3A.19 Low Risk NIPT (XY) Family history of neural tube defects (a nencephaly & leukodystrophy) Depression, +Cymbalta, +Zyprexa Targeted ultrasound today ?? IMPRESSION: Intrauterine at 19w 2d. presentation is transverse, head t o maternal left. EFW 286 grams, percentile: 47. Growth parameters and estimated we ight are appropriate for the gestational age. No major structural anomalies were identified. No markers for aneuploidy were identifie d. Normal Deepest Vertical Pocket of amniot ic fluid: 5.42 cm. Placental location: Posterior. There is no evidence of placenta previa. The transabdominal cervical length is 3. 5 cm. ?? RECOMMENDATIONS: -Return to primary provider for continue d care. -Follow-up ultrasounds as clinically ind icated. ? COMMENT: New government regulations related to Cures Act require that this note be released to the patient immediately, rigoberto etimes before the referring provider has been contacted. The following information is being provided to the patient. ?? Present findings are reassuring. The pat ient was seen by the Perinatologist today. The previous ultrasound and the rec ords were reviewed. The results of today's ultrasound were communicated to the patient. ?? Medical Decision Making: Low Level 11983 Limited Diagnoses including two or more self-limited problems, and family history significant for history of neural tube defects. Limited Data including review of prior ultrasound and review of prior external notes Minimal risk of mortality to the fetus from additional testing. ?? 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 Knox : In summary, the patient is likely to benefit from outpatient rehabilitation that addresses her postconcussive symptoms and she has requested contact information for treatment centers closer to her lois e. She was provided with contact information for the [facility] in [place], [place]. She will likely benefit from interventions that help her to make use of her reasoning and problem-solvin g abilities to address her variable attention, information processing speed, and learning. 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 The patient is encouraged to schedule a followup neuropsychological evaluation for approximately 6 months out from the current evaluation date. Posttraumatic stress disorder 07/07/2011 Alcohol abuse, unspecified 07/07/2011 Cannabis abuse, episodic 07/07/2011 Vitamin D deficiency 09/16/2010 Vasovagal syncope 09/13/2010 Patent foramen ovale 12/20/2007 RACING HEART BEAT 07/10/2007 Syncope and collapse 07/10/2007 Unspecified asthma(493.90) 10/01/2006 Family history of congenital anomalies Estimated Date of Delivery Comments Yes 01/25/2022 Based on Ultrasound Resolved Problems Problem Noted Date Resolved Date 05/10/2018 06/01/2021 Overview: Formatting of this note is dif ferent from the original. Estimated Date of Delivery: 12/03/18 Patient's last menstrual period was 02/01. Last Tdap- 10/01/2018 Last Flu vaccine- 01/15/2018 Glucose (GTT) result- Component Latest Ref Rng & Units 09/05/2018 HEMOGLOBIN 12.0 - 16.0 g/dL 12.0 MCV 80 - 100 fL 88 TREPONEMA PALLIDUM Negative Negative GLUCOSE,GESTATIONAL 65 - 139 mg/dL 132 20 week US: IMPRESSION: 1.Cephalic presentation. 2.No intrinsic abnormalities noted on an atomic survey. 3.Composite ultrasound age 20 weeks 3 da ys with VICKY of 12/02/2018 with an earlier established VICKY of 12/03/2018. Allergies Allergen Reactions ? ? Amoxicillin Parents do not give this. Siblings have an allergy to it. Obstetric History T0 L0 SAB0 TAB0 Ectopic0 Multiple0 Live s0 # Outcome Date GA Lbr Leeroy/2nd Weight Sex Delivery Anes PTL Lv 1 Current Create lab flowsheet for OB labs- Component Latest Ref Rng & Units 04/29/2018 019 04/29/2018 12:04 PM 12:04 PM 12:04 PM ANTIBODY SCREEN Negative Negative SPECIMEN EXPIRATION DATE/TIME 05/02/18 23:59 HEMOGLOBIN 12.0 - 16.0 g/dL 13.5 MCV 80 - 100 fL 86 RUBELLA IGG ANTIBODY Negative 0.85 (L) HEMOGLOBIN A1C SCREENING <6.4 % 5.0 ABORH O Rh Positive HBSAG Nonreactive Nonreactive HEPATITIS C ANTIBODY Non-Reactive Non-Reactive HIV-1/HIV-2 ANTIBODY Non-Reactive Non-Reactive TREPONEMA PALLIDUM Negative Negative Past Medical History: Diagnosis Date ? ? Concussion with no loss of consciousness 07/18/2011 ? ? Patent foramen ovale 12/20/2007 ? ? Streptococcal sore throat 09/16/2008 ? ? Unspecified asthma(493.90) ? ? Varicella without mention of complication 05/1998 had disease at age 3 years ? ? Whooping cough, unspecified organism Past Surgical History: Procedure Laterality Date ? ? TONSIL AND ADENOIDECTOMY 10/09/2008 ? ? WISDOM TEETH EXTRACTION 2017 No data on file. Problems (from 04/29/18 to pre sent) No problems associated with this episod eHuber Larkin RNC.....05/10/2018 9:37 AM Moderate dependence on smoking 11/14/2015 8 Major depressive disorder, single episode, severe, without 0 07/07/2011 08/14/2017 mention of psychotic behavior Panic disorder without agoraphobia 07/07/201107/31 Adjustment disorder with mixed anxiety and depressed mood 07/31/2017 Vasovagal syncope 09/13/2010 09/13/2010 Streptococcal sore throat 09/16/2008 01/14/2010 Overview: recurrent Tonsillar and adenoid hypertrophy 09/16/20082009 Encounters Date Type Specialty Care Team Description 01/05/2022 Ancillary Procedure Arrived 01/05/2022 OB Encounter Juliet Horn l Care (37 w 1 MD Evelyn ) 01/05/2022 Travel 01/03/2022 OB Encounter Juliet Horn Procedu re (NST) MD Evelyn 01/03/2022 Travel 12/30/2021 Ancillary Procedure 12/30/2021 Travel 12/30/2021 Refill Juliet Horn Refill Request MD Evelyn (Accu-chek Guid e Test Strips) 12/26/2021 OB Encounter Juliet Horn Care (blood MD Evelyn sugar levels an d throwing up) 12/26/2021 Travel 12/22/2021 Patient Outreach Tosin Zamorano [facility] (GDM follow RD up ) 12/21/2021 Telephone Juliet Horn MD 12/20/2021 OB Encounter Juliet Horn Care (34 weeks MD Evelyn 6 days- feeling tired) 12/20/2021 Travel 12/13/2021 Patient Outreach Tosin Zamorano [facility] (GDM follow RD up) 12/12/2021 OB Encounter Cindy Mcgregor, Follow Up (Patient was MD seen in ER on F riday. Patient was vandana y dehydrated and throwing up all day. Tri age nurse told patient to go into the ER and was told to have a follow u p appointment thi s week.) 12/12/2021 Travel 12/09/2021 Orders Only Scanner <No scans attac hed> 12/09/2021 Travel 12/09/2021 Nurse Triage Juliet Horn Gestati onal Diabetes MD Evelyn 12/01/2021 OB Encounter Juliet Horn Care (32 weeks MD Evelyn 1 day- no alex rns ) 12/01/2021 Travel 11/29/2021 Patient Outreach Nichole Aguilar Diabe tes (New GDM) RN 11/29/2021 Travel 11/27/2021 Orders Only Scanner <No scans attac hed> 11/27/2021 Orders Only Scanner <No scans attac hed> 11/27/2021 Nurse Triage Juliet Horn Pregnan cy Problem MD Evelyn 11/27/2021 Orders Only Juliet Horn <No sca ns attached> MD Evelyn 11/25/2021 Orders Only Lab, [facility] 11/25/2021 Travel 11/18/2021 Orders Only Lab, [facility] 11/18/2021 Nurse Triage Juliet Horn Error-p lease disregard MD Evelyn 11/18/2021 Travel 11/16/2021 Telephone Juliet Horn Follow Up MD Evelyn 11/11/2021 OB Encounter Virginia Oneal Prenata l Care (29 Wks 2 DO days); ER Follo w up 11/11/2021 Travel 11/09/2021 Telephone Virginia Oneal, Appoint ment (ER Follow DO up) 11/07/2021 Travel 11/07/2021 Nurse Triage Juliet Horn Gi Prob chuck MD Evelyn 10/31/2021 OB Encounter Juliet Horn Care (27 weeks MD 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); Immunization/In jection 10/31/2021 Orders Only Lab, [facility] 10/31/2021 Telephone Jluiet Horn Lab (3 HR GLUCOSE) MD Evelyn 10/31/2021 Travel from Last 3 Months Immunizations Name Administration Dates Next Due DT (Age < 7 years) 11/24/1996 DTP 07/30/2000, 11/24/1998, 01/15/1996, 1995, 1995 DTP-HIB 01/15/1996 HIB PRP-T (ActHIB,Hiberix) 11/24/1996 Hepatitis A (Peds) 01/17/2013, 11/07/2010 Hepatitis B (Peds) 07/02/1998, 1995, 1995 Human Papilloma Virus Vaccine 03/23/2011, 11/07/2010, 2009 Inactivated Polio Vaccine 07/30/2000 Influenza Virus, Unspecified 01/31/2017 Influenza, IIV3 (Age 6-35 mos) 02/03/2011 Influenza, IIV3 (Age >=3 years) 01/17/2013, 12/20/2011, 07/2010 Influenza, IIV4 01/15/2018, 01/31/2017 Influenza,CCIIV4 PRESERV FREE 01/14/2017 MMR 01/09/2007, 07/30/2000, 11/24/1996 MMR, Unspecified 11/16/2018 Meningococcal Vaccine (Menveo) 01/17/2013, 11/07/2010 Oral Polio Vaccine 07/30/2000, 01/14/1997, 11/24/1996, 01/15/1996, 1995, 1995 Td (Age >=7 Years) 09/01/2013 Tdap 10/31/2021, 10/01/2018, 01/09/2007 Family History Medical History Relation Name Comments Allergies Brother 1 amoxicillin Asthma Brother 1 Allergies Brother 2 amoxicillin Neural tube defect Brother 3 anacephaly Good Health Father Heart Disease Maternal Aunt Cardiomyopathy, irregular heart beat and murmur Stroke Maternal Aunt Heart Disease Maternal Grandfather Cardio myop athy adn CHF Parkinsonism Maternal Grandfather Stroke Maternal Grandfather age 69 Heart Disease Maternal Grandmother CHF- a t 58, bad left ventricle Heart failure Maternal Grandmother Cancer Maternal Uncle brain tumor Miscarriages / Stillbirths Maternal Uncle Stroke Maternal Uncle Allergies Mother amoxicillin Hypertension Mother Stroke Mother also all of moth ers siblings (5) have had str okes before age 35. mom was 19. Cancer Other cousin x 2 Cancer Paternal Grandfather Diabetes Paternal Grandfather Leukemia Paternal Grandmother Other Paternal Grandmother 3 babies le ukodystrophy Drug Abuse Sister Methamphetamine Suicidality Sister Successful 2020 age 22 Anesthesia Problem No Family History Blood Disease No Family History Relation Name Status Comments Brother 1 Alive Brother 2 Alive Brother 3 Alive Father Alive Maternal Aunt Maternal Grandfather Maternal Grandmother Maternal Uncle Mother Alive Other Paternal Grandfather Paternal Grandmother Sister Social History Tobacco Use Types Packs/Day Years Used Date Former Smoker Cigarettes 0.5 Quit: 05/13/19 22 Smokeless Tobacco: Never Used Tobacco Cessation: Counseling Given: Yes Alcohol Use Standard Drinks/Week Comments Not Currently 4 (1 standard drink = 0.6 oz pure alcoho l) once per month Alcohol Habits Answer Date Recorded How often do you have a drink containing alcohol? 2-4 times a month 05/23/2019 How many drinks containing alcohol do you have on a 1 or 2 01/16/2019 typical day when you are drinking? How often do you have six or more drinks on one Never 01/16/2019 occasion? Comment: once per month 12/19/2018 Estimated Date of Delivery Comments Yes 01/25/2022 Based on Ultrasound Sex Assigned at Date Recorded Not on file COVID-19 Exposure Response Date Recorded In the last 10 days, have you been in contact with No / Unsu re 01/05/2022 3:50 PM CDT someone who was confirmed or suspected to have Coronavirus/COVID-19? Obstetrics History Para Term AB IAB SAB Ectopic Multiple Living Live Births 2 1 1 0 0 0 0 0 0 1 1 Date Outcome GA Total Labor/2nd/3rd Weight Sex Delivery Anes PTL Sandra A 1 A5 Name Clin Labor 11/14 Term 37w F Vag N Kaleigh /2018 4d ng Current OB Episode Summary Episode Dates Estimated Date of Pregravid Weight TWG (As of ) Delivery 05/31/2021 - Present 01/25/2022 75.8 kg (167 lb) 7.89 kg (1 7 lb 6.4 oz) (01/07/2022) Date GA Fund Present FHR Mvmt BP Weight Edema Alb Glu Ket Dil/Eff/S ta 07/25/2021 13w5d Inpatient data not d isplayed here. See encounter summary. 09/02/2021 19w2d Inpatient data not d isplayed here. See encounter summary. Progress Notes 01/05/2022 - 37w1d - Soumya Horn MD BIOPHYSICAL PROFILE 11/07 today gestationa l diabetes diet-controlled Blood sugar Fasting blood sugar 100 % are below goal /good control After meals only 1 high blood sugar yest erday after breakfast 188 noon was 135. Drinking mostly water. The major change she has made since last talking to diabetic education is not having milk at meals Thinks she lost mucous plug this am Baby very active Cervix 3 to 4 cm ballotable minimal effa cement exam today Because patient had episodes of suboptim al blood sugar control have started biweekly testing. NST 2 days ago was normal/reactive biophysical today is normal. Continue with biweekly imaging with pl an to induce at 39 weeks if has not deli debbie. Plan discussed with mom who agrees. Mom tentatively scheduled for induction January 18 into the January 19. Signed electronically by Tea Horn MD ......... 6:26 P M 01/05/2022 01/03/2022 - 36w6d Soumya Kerr MD NST reactive today. Had a hard time keep ing baby on the monitor was so active. Could hear accelerations see visible movement. Slight headache today did not sleep well last night blood pressure 118/78. Had some swelling over the weekend that is better now Trace swelling in feet and ankles Follow-up for OB visit and biop hysical profile. Reviewed when to call Signed electronically by Tea Horn MD ......... 4:18 P M 01/03/2022 12/26/2021 - 35w5d Soumya Kerr MD Subjective: Patient is here for OB visit. Gastroesop hogeal reflux disease is very back taking pepcid, Omeprazole and TUMs. Baking soda with water. Bad overall had a bad day this weekend where she had vomiting the reflux was so bad. Blood sugar since last office visit Fasting below goal of less 95 100% 1 hours after eating goal of less than 1 40. Above goal breakfast 2 (172 12/22, 145 on 12/23) Above goal lunch 1 (153 on 12/20) Above goal dinner 1 (143 on 12/22) No highs since saw diabetic education on 12/22 She had a low 61 when she was vomiting f rom gastroesophogeal reflux disease in evening. Small ketones end of last week. Yesterday has trace ketones. She had made dietary changes since attila g diabetic education. One of days she was high at breakfast an d also dinner Headache yesterday but did not sleep wel l night before and voming Slight headache today Denies leaking of fluid, vaginal bleedin g, headache increased swelling Objective: BP 119/75 (Cuff Site: Right Arm, Positio n: Sitting, Cuff Size: Adult Regular) Pulse 92 Wt 84.2 kg (185 lb 9.6 oz) LMP 04/14/2021 SpO2 99% BMI 30.33 kg/m?? See above Acceleration of heart tone heard at the beginning of exam Group B strep negative Assessment/plan: ICD-10-CM 1. , supervision, high-risk, un specified trimester O09.90 2. Gastroesophageal reflux disease, unsp ecified whether esophagitis present K21.9 omeprazole (PRILOSEC) 20 mg Delayed-Release capsule 3. Nausea and vomiting, unspecified vomi ting type R11.2 ondansetron (ZOFRAN ODT) 4 mg disintegrating tablet 4. Gestational diabetes mellitus (GDM) i n third trimester, gestational diabetes method of control unspecified O24.419 Patient has had a jump in her weight as well as fundal height. She has a prescheduled growth ultrasound end of the week and will check weight. Gestational diabetes her numbers have al l been in good control since seeing the early childhood educator aide. No insulin or oral hypoglycemics have been started yet. She has been able to get blood sugars under bet ter control with dietary changes. She wi ll be in contact with diabetic education later this week to review her blood sugars again. GERD will increase her omeprazole dose t o 40 mg. Add liquid antacid other symptomatic treatments including positional modifications Zofran for nausea. Reviewed when to call The patient indicates understanding of t hese issues and agrees with the plan. Signed electronically by Tea Horn MD ......... 2:05 P M 12/26/2021 12/20/2021 - 34w6d - Soumya Horn MD Subjective: Patient is here for OB visit she is tire d and still has nausea. Has a hard time eating because of the nausea. Gestational diabetes: She has been snack ing more since is not getting the calorie goal recommended. She is considering dropping classes and getting behind. Hopes to get a note to get tuition refunded. She has had some vomiting and has consta nt gastroesophogeal reflux symptoms. She has Pubic bone pain. BH when she over does activity. Rib pain due to baby position Denies leaking of fluid, vaginal bleedin g, headache increased swelling Objective: BP 123/78 (Cuff Site: Right Arm, Positio n: Sitting, Cuff Size: Adult Regular) Pulse (!) 102 Wt 81.1 kg (178 lb 12.8 oz) LMP 04/14/2021 SpO2 98% BMI 29.22 kg/m?? See above Cervix: 1 to 1-1/2 cm external in genera l cervix is soft. Internal os question closed? Blood sugar since 12/05/21 Fasting less than 95 - All readings Breakfast - 3 above goal of 140 Lunch 2 above goal of 140 Dinner 5 above goal of 140 Blood sugar this week all in good contro l. Recently seeing improvement again in blood sugar readings She checks her blood sugars approximatel y 1 to 2 hours postprandial does not always get it done at one hour. Group B strep done today Assessment/plan: ICD-10-CM 1. Encounter for supervision of normal p regnancy, antepartum, unspecified Z34.90 VAGINAL/RECTAL OB STREP PCR 2. Gestational diabetes mellitus (GDM) i n third trimester, gestational diabetes method of control unspecified O24.419 Patient is having some high blood sugars since last visit. Her current blood sugars this week are excellent. She has a diabetic education visit scheduled 2 days from now. Hold on starting any insulin to day since this weeks blood sugar is exce llent and seeing diabetic education later this week. Will have more readings to review for this week. Consider mealtime insulin (and/or NPH) if has more increased blood sugar readings again. I have been in contact with diabetic education regarding patient. She has her growth ultrasound next week. If starts insulin or does not have good control of blood sugar should start bi weekly testing either NST or BIOPHYSICAL PROFILE. Consider induction around 39 wks earlier ( 37-38.6 wks) if concerns arise. Reviewed when to call The patient indicates understanding of t hese issues and agrees with the plan. Signed electronically by Tea Horn MD ......... 11:59 AM 12/20/2021 12/12/2021 - 33w5Cindy Ambrocio MD Tracie Trujillo is a 26 y.o. female here for recheck on GI illness. Seen at [facility] on 12/09/2021 for this, treated with IVF, zofran. monitoring reassuring per patient. Since then nausea/ vomi ting/ diarrhea are slowly resolving. Had urine ketones Sunday, now better but not resolved. Able to eat normally yesterday and today. Good movement. Preschool age daughter with recent diarrhea, estefania gonzalo cares for children in her home dur ing the week. Review of Systems - otherwise neg x 10 s ystems OBJECTIVE: alert, cooperative, well appearing BP 118/68 (Cuff Site: Right Arm, Positio n: Sitting, Cuff Size: Adult Regular) Pulse 96 Ht 1.666 m (5' 5.59) Wt 81.1 kg (178 lb 11.2 oz) LMP 04/14/2021 SpO2 98% BMI 29.20 kg/m?? Respiratory clear to auscultation Cardiac regularly regular, no audible mu rmur Abdomen soft, non-tender, no palpable ma ss, no rebound/ guarding, normal BS Speech fluent and coherent, appropriate content ASSESSMENT/PLAN: (R11.2, R19.7) Nausea vomiting and diarr hea (primary encounter diagnosis) Plan: improving, encourage good handwash ing, oral hydration. (O24.410) Diet controlled gestational di abetes mellitus (GDM) in third trimester Plan: follow FSBG (normal per patient), ketones (improving) (Z34.83) care, subsequent pregn ector in third trimester Plan: FHT reassuring, good movemen t, patient denies contractions. Continue with routine care with PCP in [place]. Patient indicates understanding and agre ement with plan. Return to office with PCP as scheduled, or as needed. 12/01/2021 - 32w1d - Soumya Horn MD Subjective: Recently diagnosed with gestational diab etes. She has been seen by diabetic education blood sugar testing fasting and 1 hour a fter eating. 11/29 1 hour after lunch 104, 1 hour afte r dinner 134 11/30 fasting 79, 1 hour after eating car akfast 138, noon 97, after dinner 117 Today fasting 79, after breakfast 129, a fter lunch 104 Ketones have been negative in the mornin g Thus far she is making dietary changes. She does not get the carbohydrates that were recommended by diabetic education she generally is under. Pepcid daily is controlling gerd symptom s but needs to take it frequently Some headache behind eyes think is from not getting enough sleep. Having calf cramping intermittently She is also having lightening crotch She is now taping belly because pressure in lower abdomen. Only used it for the second day today but seems to maybe be helping. Denies leaking of fluid, vaginal bleedin g, increased swelling. Think she has some [place] contrac tions nothing that is getting more often Objective: BP 112/72 (Cuff Site: Right Arm, Positio n: Sitting, Cuff Size: Adult Regular) Pulse 95 Wt 79.7 kg (175 lb 12.8 oz) LMP 04/14/2021 SpO2 100% BMI 29.71 kg/m?? See above Assessment/plan: 2 para 1 at 32 and 1 weeks gesta tion with new onset gestational diabetes. Current home blood sugars have been at goal. Continue to monitor 4 times a day she will notify me if they are becoming above goal currently they are well controlled. She will monitor the headaches try to ge t more rest. Follow-up in 2 weeks sooner if there are concerns or blood sugars are starting to climb Instructions for diabetic education: Target Ranges: Fasting <less than or equ al to 95mg/dl; 1 hour after meals <less than or equal to 140mg/dl 1. Start carb counting using the book to help with this. a. 30-45 grams with breakfast b. 45-60 grams with lunch and supper c. 15-30 grams with in between meal snac ks 2. Start monitoring blood sugars 4 times daily and log all results in the book provided a. Test when you wake up and 1 hour afte r meals. 3. Start testing ketones each morning. L og those results in the book as well. 4. Get as much exercise (walking) as you can tolerate. Reviewed when to call Signed electronically by Tea Horn MD ......... 6:06 P M 12/01/2021 11/27/2021 - 31w4d - Soumya Horn MD New gestational diabetes diagnosis. Orde r for diabetic education. Signed electronically by Tea Horn MD ......... 11:28 AM 11/27/2021 11/11/2021 - 29w2d - Virginia Oneal , Patient is here for ER follow up. She is at 29 2/7 weeks gestation and was in ER 4 days ago (11/11/21) for N/V and abdominal pain. ER notes are reviewed. She received IVF and zofran. Had bedside US in ER. White blood cells was elevated at 18 (had been 8 couple weeks prior in clinic per ER notes but we do not have White blood cells since 01/2021). ER doc discussed with Dr Sanchez who recommended follow up with her OB provider. Patient says woke with bad heartburn the n started vomiting and drenched in sweat. Was dry heaving and abdominal pain. Received IVF and zofran. Zofran helped nausea. Says no contractions noted in ER. Patient reports after ER developed diarrhea. Now still having some abdominal pain--'w onder if tore ligament from puking'. She describes round ligament pain overall except can also occur with deep breath. Lasts 30-60sec. Pain is better then when in ER. Increased FM then 1 week ago. Diarr hea stopped. No bowel movement last 2-3 days. Taking zofran every 6 hours. If not take, feels nausous. Trying eat smaller meals. No V since yesterday morning. Discussed sounds like possible gastroent eritis. Definitely sounds to be improving. Will try to decrease zofran and try other options such as B6 and dramamine. See patient instructions. Discussed usually follow up q2wks after 28wks, follow up sooner if worsening or concerns. 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 They have been in the new house 2 weeks and found out that the roof leaks the basemen t had water and there is issues with the bathtub. After we talked she realizes probably why she is tired Doing 1 hour glucose test and hemoglobin today. Updated on Tdap today denies leaking of fluid, vaginal bleedin g, headache increased swelling. 10/06/2021 - 24w1d - Soumya Horn MD OB nurse friend said she looks pale. Rec ommended to get hg checked. She was outside and felt faint had to si t down. Was outside in heat. Was working on staying hydrated Having issues with sciatic nerve pain on left. Not interested in physical therapy but written exercises given to patient. Baby is very active Not sleeping well at night. She is under more stress recently. They are moving bought house in [place], sister date coming up October 09, missing child in town troubling for her also. Results for orders placed or performed i n visit on 10/06/21 HEMOGLOBIN Result Value Ref Range Status HEMOGLOBIN 11.4 (L) 12.0 - 16.0 g/dL Fi nal MCV 88 80 - 100 fL Final Recommend patient start iron Reviewed when to call [employer] copy to [employer] Signed electronically by Tea Horn MD ......... 5:53 P M 10/06/2021 09/05/2021 - 19w5d - Soumya Horn MD Level 2 ultrasound Indications Code 19 weeks gestation of Z3A.19 Low Risk NIPT (XY) Family history of neural tube defects (a nencephaly & leukodystrophy) Depression, +Cymbalta, +Zyprexa Targeted ultrasound today ?? IMPRESSION: Intrauterine at 19w 2d. presentation is transverse, head t o maternal left. EFW 286 grams, percentile: 47. Growth parameters and estimated we ight are appropriate for the gestational age. No major structural anomalies were identified. No markers for aneuploidy were identifie d. Normal Deepest Vertical Pocket of amniot ic fluid: 5.42 cm. Placental location: Posterior. There is no evidence of placenta previa. The transabdominal cervical length is 3. 5 cm. ?? RECOMMENDATIONS: -Return to primary provider for continue d care. -Follow-up ultrasounds as clinically ind icated. ? COMMENT: New government regulations related to Cures Act require that this note be released to the patient immediately, rigobetro etimes before the referring provider has been contacted. The following information is being provided to the patient. ?? Present findings are reassuring. The pat ient was seen by the Perinatologist today. The previous ultrasound and the rec ords were reviewed. The results of today's ultrasound were communicated to the patient. ?? Medical Decision Making: Low Level 60457 Limited Diagnoses including two or more self-limited problems, and family history significant for history of neural tube defects. Limited Data including review of prior ultrasound and review of prior external notes Minimal risk of mortality to the fetus from additional testing. ?? Still having headache mostly daily. Slee ping ok but daughter up with nightmares. Tylenol gets better not gone. Behind eye s. Has neck issues in past. One weekly goes to chiro and headache better. Headache bad when stressed out. Neck exercises were reviewed and given to patient. Heada ches likely sound musculoskeletal. Revie wed signs and symptoms would recommend more immediate evaluation. Blood pressure is controlled today. Signed electronically by Tea Horn MD ......... 8:39 P M 09/05/2021 09/02/2021 - 19w2d - Kennedy Damon MBBS [facility] Ultrasound Visit [facility]. The report is ready and can be found in the Results review section of the [facility]. The Impression from the report is below. Thank you for sending her to see us. Referred By: JULIET HORN MD Indications Code 19 weeks gestation of Z3A.19 Low Risk NIPT (XY) Family history of neural tube defects (a nencephaly & leukodystrophy) Depression, +Cymbalta, +Zyprexa Targeted ultrasound today IMPRESSION: Intrauterine at 19w 2d. presentation is transverse, head t o maternal left. EFW 286 grams, percentile: 47. Growth parameters and estimated we ight are appropriate for the gestational age. No major structural anomalies were identified. No markers for aneuploidy were identifie d. Normal Deepest Vertical Pocket of amniot ic fluid: 5.42 cm. Placental location: Posterior. There is no evidence of placenta previa. The transabdominal cervical length is 3. 5 cm. RECOMMENDATIONS: -Return to primary provider for continue d care. -Follow-up ultrasounds as clinically ind icated. COMMENT: New government regulations related to Century Cures Act require that this note be released to the patient immediately, sometimes before the referring provider has been contacted. The following information is being provided to the patient. Present findings are reassuring. The pat ient was seen by the Perinatologist today. The previous ultrasound and the records were reviewed. The results of today's ultrasound were communicated to the patient. Medical Decision Making: Low Level 78473 Limited Diagnoses including two or more self-limited problems, and family history significant for history of neural tube defects. Limited Data including review of prior ultrasound and review of prior external notes Minimal risk of mortality to the fetus from additional testing. Services Provided: Procedures Code DETAIL ANATOMY 10649.0 08/08/2021 - d - Soumya Horn MD The patient was seen in conjunction with Dr. Rubio, PGY-2. I agree with her documentation. I also saw and examined the patient. Signed electronically by Tea Horn MD ......... 8:04 P M 08/08/2021 08/08/2021 - d - Sade Rubio MD Tracie Trujillo is a 26 y.o. at 15w5d here for routine visit. complications: none Genetic counseling appt since last visit - doing level 2 ultrasound at 20 weeks, serum AFP at 16-18 weeks. Wondering if it's okay to sleep on her s tomach - wakes up on stomach Headaches have been happening on and off this whole . None with last . Happens in the afternoon about 2x/week, lasts a few hours. Naps and water sometimes help. Hasn't tried Tylenol. Has been extremely thirsty this whole pr egnancy. Doesn't feel like she can get enough to drink. Drinking 3-4 32 oz cups of water/day. Urinating a normal amount. Feeling tightness in stomach on right si de when coughing/sneezing. Started feeling flutters 1 week ago. Doing well, taking PNV's. No nausea. +FM, no VB, VD, LOF, contract ions, dysuria or other urinary symptoms. O: BP: 113/71 Weight: 78.7 kg (173 lb 6.4 o z) FHT: 155 Fundal height: below the umbilicus A/P: 26 y.o. at 15w5d 1. 26 y.o. at 15w5d 2. Try Tylenol PRN for headaches - blood pressure normal 3. Will spot check glucose given increas ed thirst, but unlikely diabetes given no glucose in urine in early . Likely normal thirst in 4. Ordered AFP for 16-18 weeks and level 2 ultrasound per genetic counseling recommendations 5. Reviewed labor precautions. 6. Return in 4 wks for OB FU. Precepted with Dr. Juliet Horn w also saw and evaluated the patient. Sade Rubio MD .................... 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 Low risk NIPS Medications: Cymbalta, discontinued Yue marquis, Zyprexa Exposures/infections: none reported Family History: A 3 generation pedigree was obtained at today's visit ? ? Maternal history notable for: o Brother with anencephaly jeanine Hodges's father is one of nine sibling s. He had a brother and two sisters who from leukodystrophy between 1 and 2 years of age. Tracie was not aware of the type of leukodystrophy. o Tracie reports she has 2 maternal aunt s and her maternal grandmother with cardiomyopathy's. ? ? Paternal history notable for: Unremakable ? ? Maternal ethnicity: [place] ? ? Paternal ethnicity: [place] ? ? Consanguinity: none noted. Risk Assessment: ? ? The 3-5% background risk for defects and 1-2% background risk for intellectual disability and/or developmental delay was reviewed. ? ? Discussed Tracie's age related risk for chromosomal aneuploidy, providing info about the conditions and age related risks. o Based on Tracie's age of 26 at deliver y, she has a <1 in 385 risk for any chromosome aneuploidy and a <1 in 994 risk for Down syndrome at delivery. ? ? The following genetic screening and testing options were discussed: anatomy scan, amniocentesis ? ? The following carrier screening options were offered: multigene panel carrier screen. ? ? Discussed screening/testing available due to the family history of leukodystrophy: targeted carrier screening if familial pathogenic variant(s) are known. Risk Assessment Based on Family History: Leukodystrophies are a group of rare, pr ogressive, metabolic, genetic diseases that affect the brain, spinal cord and often the peripheral nerves. Each type of leukodystrophy is caused by a specific gen e abnormality that leads to abnormal dev elopment or destruction of the white matter (myelin sheath) of the brain. The myelin sheath is the protective covering of the nerve and nerves can? t function no rmally without it. Each type of leukodys trophy affects a different part of the myelin sheath, leading to a range of neurological problems. There are over 50 types of leukodystroph ies. Some types are present at , while others may not cause symptoms until a child becomes a toddler. A few types mainly affect adults. Most types get worse over time. Leukodystrophies are caused b y genetic changes. These changes are usually inherited, meaning that they are passed from parent to child. In Tracie's family, the history is most consistent with autosomal recessive inheritance as both males and females are affected and no parent child transmission is seen. If this is the case, Tracie's change of being a carrier is 1/3. The carrier risk for her partner is dependant on the frequency o f the specific type of leukodystrophy. As the specific type is unknown, I cannot give a specific carrier frequency. The risk to the is 1/3 (Tracie's car rier risk) X N (population risk and Timothy' s carrier risk) X 1/4 (risk to if both are carriers). Using a 1/50 for a carrier risk (which is likely a overestimation) the risk would be 1/3 X 1/50 X 1/4 or 1/600. If a carrier frequency of 1/100 is used (risk often used for rare disorders with unknown frequency) the risk would be 1/3 X 1/100 X 1/4 or 04/1199. Tracie felt that this risk is low enough that she did not wish to pursue carrier testing at this time as the specific genetic condition is not known. If she is able to fine out the type of leukodystrophy from her parents she may wish to purse testing for just that gene. Neural tube defects( NTD) such as spina bifida or anencephaly occur in almost 04/999 births. An NTD can occur as an isolated condition or as part of a syndrome or chromosome abnormality. When isolated, most often a combination of genes and en vironment called multifactorial inheritance is understood to be the cause. Given that Tracie has a brother that with anencephaly, the risk is increase d above the general population risk for an NTD to approximately 1%. Serum AFP at 16-18 weeks and a level ll ultrasound is recommended to address this concern. Taking adequate folic acid at least 1 mg preconception thru 12 weeks may reduce this risk. Discussion: Tracie reported understanding of the abo ve information. She was pleased to learn that her family history was not associated with as high or increased risk as she thought. She is aware that the risk is s till increased over population. Unfortun ately without knowing more about the specific type of family, specific testing could not be offered. We discussed that some of the large multigene carrier screeni ng panels do have some of the leukodystr ophies on the panel. We reviewed that a negative test while reassuring for many conditions, could not rule out a carrier status for all leukodystrophies. At that time Tracie did not feel that she wanted to pursue testing unless the familial type of leukodystrophy is known. She did report she would be open to purs uing a level 2 ultrasound due to the family history of her brother with a open neural tube defect. Plan: 1) Recommend serum AFP at 16-18 weeks. 2) Recommend level II ultrasound at 20-2 2 weeks. 3) If Tracie learns more about the type of leukodystrophy in her family she should not hesitate to contact me. Thank you for allowing us to participate in your patient's care. Please do not hesitate to contact me at [phone] with any additional questions or concerns. Sincerely, Emilie Duran MS, [facility] Licensed Genetic Counselor Total time: 50 minutes in person Virtual Visit: As the provider for this virtual visit, I attest that I introduced myself to the patient, provided my credentials, disclosed my location, and determined that, based on a review of the pat ients chart and/or a discussion with mem bers of the patient's treatment team, telemedicine via a real-time, two-way, interactive audio and video platform is an appropriate and effective means of providi ng this service. The patient and I mutua lly agree that this visit is appropriate for telemedicine as well. Patient location (originating site [facility]): [place], [place] Provider location (distant site [facility]): [place], [place] Video/Phone start time (include am/pm de signation): 1:00 PM Video/Phone end time (include am/pm chito gnation): 1:50 PM [facility], [address] [place] [id number] 07/11/2021 - w5paige - Soumya Horn MD The patient was seen in conjunction with Dr. Plunkett, PGY-2. I agree with her documentation. I also saw and examined the patient. Signed electronically by Tea Horn MD ......... 4:52 P M 07/11/2021 07/11/2021 - w5paige - Sade Rubio MD Tracie Trujillo is a 26 y.o. at 11w5d here for routine visit. complications: none Discussed dating - will go with 8w0d ult rasound dating. Feeling fatigued. Mild nausea. No breast tenderness, no bloating. Planned , feeling excited. Struggling with nightmares related to he r sister's 9 months ago. Wondering about testing for sex - previously had low risk Panorama, sex not reported. Patient has family history of anencephal y and leukodystrophy Taking prenatals. No VB, VD, LOF, contractions, dysuria or other urinary symptoms. O: BP: 121/72 Weight: 78.7 kg (173 lb 9.6 o z) FHT: 166 A/P: 26 y.o. at 11w5d 1. 26 y.o. at 11w5d 2. Discussed relaxation techniques befor e bed to help with nightmares 3. Will order sex add on to Garry alonso 4. [facility] to further discuss possible additional genetic testing given family history, per patient preference 5. Reviewed labor precautions. 6. Return in 4 wks for OB FU. Precepted with Dr. Horn who also saw and evaluated the patient Sade Rubio MD ................... . 07/11/2021 11:42 AM 06/13/2021 - 7w5d - Jami, Juliet Rivas MD VISIT FIRST OBSTETRICAL EXAM Patient's last menstrual period was 03/02 (exact date). Estimated Date of Delivery: 12/22/21 Tracie Trujillo is a 25 y.o. female G2 P 1 is here today for her First Obstetrical Exam. Now has morning sickness started about 1 wk ago. HPI: Patient had an ultrasound done at [facility]. Appears that she is not as far along as she thought she may be. Was told that it was early in they were only able to see the yol k sac. She is anxious to have another ul trasound. Date of the hospital ultrasound was May 31 (yolk sac but no baby.) Has ultrasound scheduled here in 2 days. 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 Date ? ? Concussion with no loss of consciousness 07/18/2011 ? ? Patent foramen ovale 12/20/2007 ? ? Streptococcal sore throat 09/16/2008 ? ? Unspecified asthma(493.90) ? ? Varicella without mention of complication 05/1998 had disease at age 3 years ? ? Whooping cough, unspecified organism Past Surgical History: . Laterality Date ? ? TONSIL AND ADENOIDECTOMY 10/09/2008 ? ? WISDOM TEETH EXTRACTION 2018 Current Outpatient Medications Medication Sig Dispense Refill ? ? albuterol (PROVENTIL) 0.083 % neb solution Inhale 3 mL via a nebulizer every 4 hours if needed. 1 box 0 ? ? albuterol HFA (PROVENTIL HFA) 90 mcg/actuation inhaler Inhale 1-2 Puffs by mouth every 4 hours if needed. 1 Inhaler 1 ? ? ARIPiprazole (ABILIFY) 10 mg tablet Take 10 mg by mouth once daily. ? ? DULoxetine (CYMBALTA) 30 mg Delayed-release capsule Take 1 Capsule (30 mg) by mouth once daily. With 60 mg for total of 90 mg 0 ? ? DULoxetine (CYMBALTA) 60 mg Delayed-release capsule Take 2 capsules by mouth once daily. 0 ? ? hydroxyzine HCL (ATARAX) 25 mg tablet TK UP TO 3 TS PO QD PRN ? ? ibuprofen (ADVIL; MOTRIN) 600 mg tablet Every 6 Hours as needed ? ? OLANzapine (ZYPREXA) 5 mg tablet No current facility-administered medicat ions for this visit. Medications have been reviewed by me and are current to the best of my knowledge and ability. Allergies Allergen Reactions ? ? Amoxicillin Parents do not give this. Siblings have an allergy to it. SH: planned pregancy Smoking: no ETOH use no Family History Problem Relation Age of Onset ? ? Asthma Brother ? ? Allergies Brother amoxicillin ? ? Allergies Mother amoxicillin ? ? Stroke Mother also all of mothers siblings (5) have h ad strokes before age 35. mom was 19. ? ? Hypertension Mother ? ? Allergies Brother amoxicillin ? ? Neural tube defect Brother anacephaly ? ? Cancer Maternal Uncle brain tumor ? ? Stroke Maternal Uncle ? ? Miscarriages / Stillbirths Maternal Uncle ? ? Cancer Other cousin x 2 ? ? Cancer Paternal Grandfather ? ? Diabetes Paternal Grandfather ? ? Heart Disease Maternal Grandmother CHF- at 58, bad left ventricle ? ? Heart Disease Maternal Aunt Cardiomyopathy, irregular heart beat an d murmur ? ? Stroke Maternal Aunt ? ? Heart Disease Maternal Grandfather Cardio myopathy adn CHF ? ? Stroke Maternal Grandfather age 69 ? ? Suicidality Sister Successful 2020 age 22 ? ? Drug Abuse Sister Methamphetamine ? ? Anesthesia Problem No Family History ? ? Blood Disease No Family History REVIEW OF SYSTEMS please see history of present illness. Otherwise noncontributory See HPI. PHYSICAL EXAM BP 104/68 (Cuff Site: Right Arm, Positio n: Sitting, Cuff Size: Adult Large) Pulse 83 Wt 78.1 kg (172 lb 3.2 oz) LMP 03/17/2021 (Exact Date) SpO2 98% BMI 29.10 kg/m?? In general, this is a pleasant female re sting comfortably. HEENT: Normal cephalic and atraumatic. P upils are equal, round, and reactive to light. Funduscopi c exam is within normal limits. Nose is without drainage. Oropharynx shows no tonsillar hypertroph y or exudate. TMs, canals, and external ear are normal . Neck is supple without lymphadenopathy. No thyroid nodules, tenderness, or enlargement. HEART: Regular rate and rhythm without m urmur including supine exam. Lungs are clear without rhonchi, wheezes , or crackles. ABDOMEN: Positive bowel sounds, soft, an d nontender without hepatosplenomegaly or masses. Breast exam reveals no dominant masses, galactorrhea, or nipple retraction. No infra or supraclavicular lymphadenopathy. No axillary lymph nodes LYMPHATIC: No supra or infraclavicular l ymphadenopathy. No axillary nodes. PELVIC: Normal external genitalia, ureth ral meatus normal, bladder non-tender to palpation. Urethra No tenderness or masses, no vaginal or labial abnormalities Cervix is visualized and within normal l imits. Bimanual exam reveals uterus. Adnexa are unremarkable. Extremities are normal. Skin: Normal Neurologic: DTR normal, color and tone n ormal. Fundal Height: not palpable HR: Unable Edema: none ASSESSMENT/PLAN Normal first visit. Discussed orientation,general informatio n,lifestyle,nutrition,exercise,warning signs,resources,lab testing,risk screening,discussed cystic fibrosis screening with patient. Questions answered. 6 - 14 WEEKS: [place] Risk A ssessment Form completed, Urine Culture Ordered and Domestic Abuse reviewed ICD-10-CM 1. Encounter for supervision of normal p regnancy, antepartum, unspecified Z34.90 DNA SCREEN SEND OUT HEMOGLOBIN ANTI HIV 1/2 ABORH TYPE HBSAG (HBS) TREPONEMA PALLIDUM RUBELLA IMMUNE STATUS UA W/ SEDIMENT EXAM REFLEXED PER CRITER IA URINE CULTURE VARICELLA ZOSTER IMM ASSY ANTIBODY SCREEN HEMOGLOBIN A1C MONITORING (POCT) ANTI HCV GC & CHLAMYDIA DNA PCR [[id number]] HEMOGLOBIN ANTI HIV 1/2 ABORH TYPE HBSAG (HBS) TREPONEMA PALLIDUM RUBELLA IMMUNE STATUS UA W/ SEDIMENT EXAM REFLEXED PER CRITER IA URINE CULTURE VARICELLA ZOSTER IMM ASSY ANTIBODY SCREEN HEMOGLOBIN A1C MONITORING (POCT) ANTI HCV GC & CHLAMYDIA DNA PCR [[id number]] DNA SCREEN SEND OUT URINALYSIS MICROSCOPIC She is interested in getting genetic duane ting as soon as possible. There is a family history of genetic disorders. Ginny order done she will wait until she we know that she is at least 11 weeks gestation. Return to office in 4 week(s) for re-russell ck. Signed electronically by Tea Horn MD ......... 11:04 AM 06/13/2021 05/31/2021 - 5w6d - Juliet Horn MD SUBJECTIVE/HPI Patient is here for confirmati on. Her last normal menstrual period was March 17-2020. She was using ovulation testing and in early April during ovulation they had intercourse 2 days b efore on the day of ovulation and 2 days after. She then on April 15 had a 3- day episode of light bleeding. She also noted an LH surge on April 29 and they had intercourse once. She took a home preg laureen test on May 22 and it was pos itive. She does have breast tenderness and food aversions especially to coffee which she really likes. She otherwise feels good and has no other symptoms of . She quit smoking completely 4 days ago. She is concerned because she drank quite heavily the night before she found out she was . She worries that she is going to have a miscarriage. She has had dreams of twin . She has a str blaine family history of twins. She was previously on Ritalin which she stopped after she found out she was . She has noted that she is more tired since stopping the Ritalin. She was placed on the Ritalin from her sleep doctor . Other medications that she is on is Ab ilify 10 mg once a day. She is also on Cymbalta for a total of 90 mg daily. She has hydroxyzine that has not taken it since she found out she was . She al so has Zyprexa 5 mg that she can take as needed but again has not taken this medicine since she found out she was . She is switching psychiatrists because her previous psychiatrist fired her when the sleep provider placed her on Ritalin. Patient Active Problem List Diagnosis Code ? ? Unspecified asthma(493.90) J45.909 ? ? RACING HEART BEAT R00.0 ? ? Syncope and collapse R55 ? ? Patent foramen ovale Q21.1 ? ? Vasovagal syncope R55 ? ? Vitamin D deficiency E55.9 ? ? Posttraumatic stress disorder F43.10 ? ? Alcohol abuse, unspecified F10.10 ? ? Cannabis abuse, episodic F12.10 ? ? Concussion with no loss of consciousness S06.0X0A ? ? Sleep disorder G47.9 ? ? Neck strain S16.1XXA ? ? Tobacco use disorder, continuous F17.209 ? ? 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 ? Z34.90 ? ? Encounter for supervision of normal , antepartum Z34.90 ? ? Severe episode of recurrent major depressive disorder, without psychotic features (HC) F33.2 Past Medical History: . Date ? ? Concussion with no loss of consciousness 07/18/2011 ? ? Patent foramen ovale 12/20/2007 ? ? Streptococcal sore throat 09/16/2008 ? ? Unspecified asthma(493.90) ? ? Varicella without mention of complication 05/1998 had disease at age 3 years ? ? Whooping cough, unspecified organism Past Surgical History: . Laterality Date ? ? TONSIL AND ADENOIDECTOMY 10/09/2008 ? ? WISDOM TEETH EXTRACTION 2018 Social History Socioeconomic History ? ? Marital status: Single Spouse name: Not on file ? ? Number of children: Not on file ? ? Years of education: Not on file ? ? Highest education level: Not on file Occupational History ? ? Not on file Tobacco Use ? ? Smoking status: Former Smoker Packs/day: 0.50 Types: Cigarettes Quit date: 05/13/2021 Years since quittin.0 ? ? Smokeless tobacco: Never Used ? ? Tobacco comment: mother and father smoke outside Vaping Use ? ? Vaping Use: Never used Substance and Sexual Activity ? ? Alcohol use: Not Currently Alcohol/week: 4.0 - 5.0 standard drinks Types: 4 - 5 Standard drinks or equival ent per week Comment: once per month ? ? Drug use: Not Currently Types: Marijuana ? ? Sexual activity: Yes Partners: Male control/protection: OCP, Condom Comment: condoms sometimes Other Topics Concern ? ? Service Not Asked ? ? Blood Transfusions Not Asked ? ? Caffeine Concern Not Asked ? ? Occupational Exposure Not Asked ? ? Hobby Hazards Not Asked ? ? Sleep Concern Not Asked ? ? Stress Concern Not Asked ? ? Weight Concern Not Asked ? ? Special Diet Not Asked ? ? Back Care Not Asked ? ? Exercise Not Asked ? ? Bike Helmet Not Asked ? ? Seat Belt Yes Comment: 100% ? ? Self-Exams Not Asked Social History Narrative ? ? Not on file Family History Problem Relation Age of Onset ? ? Asthma Brother ? ? Allergies Brother amoxicillin ? ? Allergies Mother amoxicillin ? ? Stroke Mother also all of mothers siblings (5) have h ad strokes before age 35. mom was 19. ? ? Hypertension Mother ? ? Allergies Brother amoxicillin ? ? Neural tube defect Brother anacephaly ? ? Cancer Maternal Uncle brain tumor ? ? Stroke Maternal Uncle ? ? Miscarriages / Stillbirths Maternal Uncle ? ? Cancer Other cousin x 2 ? ? Cancer Paternal Grandfather ? ? Diabetes Paternal Grandfather ? ? Heart Disease Maternal Grandmother CHF- at 58, bad left ventricle ? ? Heart Disease Maternal Aunt Cardiomyopathy, irregular heart beat an d murmur ? ? Stroke Maternal Aunt ? ? Heart Disease Maternal Grandfather Cardio myopathy adn CHF ? ? Stroke Maternal Grandfather age 69 ? ? Suicidality Sister Successful 2020 age 22 ? ? Drug Abuse Sister Methamphetamine ? ? Anesthesia Problem No Family History ? ? Blood Disease No Family History Current Outpatient Rx Medication Sig Dispense Refill ? ? albuterol (PROVENTIL) 0.083 % neb solution Inhale 3 mL via a nebulizer every 4 hours if needed. 1 box 0 ? ? albuterol HFA (PROVENTIL HFA) 90 mcg/actuation inhaler Inhale 1-2 Puffs by mouth every 4 hours if needed. 1 Inhaler 1 ? ? ARIPiprazole (ABILIFY) 10 mg tablet Take 10 mg by mouth once daily. ? ? DULoxetine (CYMBALTA) 30 mg Delayed-release capsule Take 1 Capsule (30 mg) by mouth once daily. With 60 mg for total of 90 mg 0 ? ? DULoxetine (CYMBALTA) 60 mg Delayed-release capsule Take 2 capsules by mouth once daily. 0 ? ? gabapentin (NEURONTIN) 400 mg capsule Take 1 Capsule (400 mg) by mouth 3 times daily. 0 ? ? hydroxyzine HCL (ATARAX) 25 mg tablet TK UP TO 3 TS PO QD PRN ? ? ibuprofen (ADVIL; MOTRIN) 600 mg tablet Every 6 Hours as needed ? ? norethin jovita-eth estrad-fe, 1.5-30 mg-mcg, (Aurovela Fe 1.5/30, 28,) 1.5 mg-30 mcg (21)/75 mg (7) tablet Take 1 Tablet by mouth once daily. 84 Tablet 3 ? ? OLANzapine (ZYPREXA) 5 mg tablet Medications have been reviewed by me and are current to the best of my knowledge and ability. Allergies Allergen Reactions ? ? Amoxicillin Parents do not give this. Siblings have an allergy to it. REVIEW OF SYSTEMS ROS: See HPI Rest of review of systems - Negative PHQ Depression Screening 02/12/202011/15 Date of PHQ exam (doc flow) 02/12/2020 1. Lack of interest/pleasure 2 - More th an half the days 3 - Nearly every day 2. Feeling down/depressed 2 - More than half the days 3 - Nearly every day PHQ-2 TOTAL SCORE 4 6 3. Trouble sleeping 2 - More than half t he days 2 - More than half the days 4. Decreased energy 3 - Nearly every day 3 - Nearly every day 5. Appetite change 3 - Nearly every day 1 - Several days 6. Feelings of failure 1 - Several days 3 - Nearly every day 7. Trouble concentrating 0 - Not at all 2 - More than half the days 8. Activity level 0 - Not at all 0 - Not at all 9. Hurting yourself 1 - Several days 2 - More than half the days PHQ-9 TOTAL SCORE 14 19 PHQ-9 Severity Level moderate moderately severe Functional Impairment somewhat difficult very difficult Some recent data might be hidden LOLA-7 ANXIETY SCREENING 11/15/2020 LOLA date (doc flow) 11/15/2020 Nervous, anxious 1 Cannot stop worrying 3 Worry about different things 3 Cannot relax 1 Feeling restless 2 Easily annoyed/irritated 3 Afraid of awful event 3 Score 16 Severity severe anxiety Some recent data might be hidden OBJECTIVE: BP 127/72 (Cuff Site: Left Arm, Position : Sitting, Cuff Size: Adult Regular) Pulse 85 Wt 78.9 kg (174 lb) LMP 03/17/2021 (Exact Date) SpO2 98% No BMI 29.41 kg/m?? In general pleasant patient resting comf ortably in no obvious distress. HEENT: Eyes: no scleral icterus, redness or lid swelling Skin without rashes Mental status she is happy about the pre gnancy. No illusions delusions or hallucinations. No anxiety or depression noted heart tones unable to be heard on exam today. Results for orders placed or performed i n visit on 05/31/21 URINE Result Value Ref Range Status ,URINE Positive (Positive) Neg ative Final ICD-10-CM 1. Possible Z32.00 U RINE URINE 2. , unspecified gestational ag e Z34.90 US OB 1ST TRI SINGLE TA AND TV 3. Severe episode of recurrent major dep ressive disorder, without psychotic features (HC) F33.2 4. Patent foramen ovale Q21.1 5. Mild intermittent asthma without comp lication J45.20 confirmed on urine t est today. Unable to hear heart tones which is not surprising since she is under 12 weeks. We will get a dating ultrasound. She will schedule a first OB visit. Re viewed her medications in up-to-date and she will stay on her current doses of medications until she is seen by Dr. Kenney. She is on a vitamin. We will co ivonne with this. Questions were answered. Patient is excited about . Depression medications managed by [facility] Asthma stable today PFO stable Total time preparing to see this patient , [id number] time, and coordinating care time on the same calendar date: 40 minutes. Signed electronically by Tea Horn MD ......... 10:15 AM 05/31/2021 This note consists of elements derived f [employer] keyboarding and voice recognition software and as a result may contain minor grammatical errors and unintended word substitutions. While every effort was made to prevent this, please keep this in mi nd as this document is utilized. [employer] Last Filed Vital Signs Vital Sign Reading Time Taken Comments Blood Pressure 126/82 01/05/2022 4:57 PM CDT Pulse 85 01/05/2022 4:19 PM CDT Temperature 37.1 ??C (98.7 ??F) 05/23/2019 11:29 AM DRY [employer]ER Respiratory Rate 18 11/15/2020 1:10 PM CDT Oxygen Saturation 99% 12/26/2021 1:59 PM CDT Inhaled Oxygen Concentration - - Weight 83.6 kg (184 lb 6.4 oz) 01/05/2022 4:19 PM CDT Height 166.6 cm (5' 5.59) 12/12/2021 8:52 AM CDT Body Mass Index 30.14 12/12/2021 8:52 AM CDT Plan of Treatment Upcoming Encounters Date Type Specialty Care Team Description 01/09/2022 Ancillary Procedure 01/12/2022 OB Encounter Regina Horn MD [phone] (Wo rk) 01/13/2022 Ancillary Procedure 01/16/2022 Ancillary Procedure 01/19/2022 Ancillary Procedure 01/19/2022 OB Encounter Regina Horn MD [phone] (Wo rk) Health Maintenance Due Date Last Done Comments COVID-19 vaccine series (#1) 1995 Pneumococcal series for age 19-64 06/28/2001 (1 - PCV) Influenza for age 9-49 12/01/2021 01/15/2018, 01/31/2017, 01/31/2017, Additional history exists Depression screening for age 12+ 06/17/2022 06/17/2021, , 02/12/2020, Additional history exists BMI (ht and wt on same day) for 12/12/2022 12/12/2021, 10/31, age 18+ 02/12/2020, Additional history exists Pap test for age 21-65 11/16/2023 11/15/2020, 03/19/2018, 01/15/2018 (Completed outside of [facility]) Tetanus booster 11/01/2031 10/31/2021, 10/01/2018, 09/01/2013, Additional history exists HPV series for age 9-26 Completed 03/23/2011, 03/23/2011, 11/07/2010, Additional history exists Hepatitis C screening for age Completed 06/13/2021, 2018 18-79 Tdap Completed 10/31/2021, 10/01/2018, 01/09/2007 Procedures Procedure Name Priority Date/Time Associated Diagnosis Comme nts US OB BIOPHYSICAL Routine 01/05/2022 4:19 PM Gestational diabe duane PROFILE SINGLE WO NST CDT mellitus (GDM) in t hird trimester, gestational diabetes method of control unspecified Procedure Note - Victor Manuel Kamara MD - 01/05/2022 4:19 PM CDTThis note is in progress. Formatting of this note migh t be different from the original. For Patients: As a result of the Century Cures Act, medical imaging exams and procedure reports are released immediately into your electronic medical record. You may view this report before your referring provider. If you have questions, pleas e contact your health care provider. OBSTETRICAL ULTRASOUND BIOPH YSICAL PROFILE 01/05/2022 REASON FOR EXAM: Gestational diabetes. TECHNIQUE: Transabdominal ob stetrical ultrasound. VICKY: 01/25/2022. Gestational age: 37 weeks 1 day. FHR: 130 bpm. Single deepest pocket: 7.6 c m, previous 8.4 cm. Umbilical/artery S/D ratio: 2.6. BIOPHYSICAL PROFILE: breathing activity: 2/ 2 Gross body movements: 2/2 tone: 2/2 Amniotic fluid: 2/2 Total: 11/07 IMPRESSION: Biophysical prof ile score 8. Single deepest pocket 7.6 cm, borderline polyhydramnios. Zakiya Kamara M.D. Diagnostic/Breast Radiologis t [facility] . [email or web address] OB BIOPHYSICAL Routine 12/30/2021 3:04 PM Encounter for Res ults for this PROFILE AND FOLLOW CDT supervision of normal procedure are in UP SINGLE , antepartum, the r esults unspecified grav idity section. Diet controlled gestational diabetes mellitus (GDM) in third trimester VAGINAL/RECTAL OB Routine 12/20/2021 12:30 Encounter for Resul ts for this STREP PCR PM CDT supervision of normal proced ure are in , antepartum, the r esults unspecified sectio n. SCAN-LABORATORY 12/09/2021 12:00 Results for this REPORT AM CDT procedure are i n the results section. SCAN-PATHOLOGY 11/27/2021 12:00 Results f or this REPORT AM CDT procedure are i n the results section. SCAN-LABORATORY 11/27/2021 12:00 Results for this REPORT AM CDT procedure are i n the results section. GLUCOSE Routine 11/25/2021 12:50 Abnormal glucose level R esults for this TOLERANCE,3HR GEST PM CDT procedure are in the results section. GLUCOSE Routine 11/25/2021 11:49 Abnormal glucose level R esults for this TOLERANCE,2HR GEST AM CDT procedure are in the results section. GLUCOSE Routine 11/25/2021 10:49 Abnormal glucose level R esults for this TOLERANCE,1HR GEST AM CDT procedure are in the results section. GLUCOSE Routine 11/25/2021 9:35 AM Abnormal glucose level Results for this TOLERANCE,FASTING CDT procedure are in GEST the results section. GLUCOSE Routine 11/25/2021 9:35 AM Abnormal glucose level Results for this TOLERANCE,3H GEST CDT procedure are in the results section. HEMOGLOBIN Routine 10/31/2021 2:32 PM Encounter for Results for this CDT supervision of normal proced ure are in , antepartum, the r esults unspecified sectio n. GLUCOSE,GESTATIONAL Routine 10/31/2021 2:32 PM Encounter for R esults for this CDT supervision of normal proced ure are in , antepartum, the r esults unspecified sectio n. from Last 3 Months Results US OB BIOPHYSICAL PROFILE AND FOLLOW UP SINGLE (12/30/2021 3:04 PM CDT) Anatomical Region Laterality Modality Ultrasound Specimen (Source) Anatomical Collection Method Collection Time Re ceived Time Location / / Volume Laterality 12/30/2021 3:12 PM CDT Impressions 12/30/2021 3:12 PM CDT Normal biophysical profile score of 8 out of 8. Sonographic gestational age 37 weeks 0 d ays and sonographic due date 01/20/2022. Sonographic age is 5 days ahead of the clinical age. Estimated weight 82nd percentile. Abdominal circumference greater than 98th percentile. Dictated by Kenneth Reddy MD @ Dec 30 2 022 ??3:12PM (Electronically Signed) ?? Narrative 12/30/2021 3:12 PM CDT For Patients: ??As a result of the Cures Act, medical imaging exams and procedure report s are released immediately into your [facility] medical record. ??You may view this report before your referring provider. ??If you have questions, please contact your health care provider. INDICATION: Diabetes mellitus, 3rd trimester growth/ BPP COMPARISON: 06/15/2021 TECHNIQUE: Real time torres scale imaging of the fetu s was performed as well as color Doppler and spectral Doppler analysis of the umbilical artery. Without non-stress testing. FINDINGS: Sonographic imaging demonstrates a singl e living intrauterine gestation. ??Fetus demonstrates a regular cardiac rate of 125 beats per minute. ??Fetus has a vertex position. The umbilical artery demonstr ates adequate diastolic blood flow. ??Th e S/D ratio measures 2.2. The amniotic fluid volume appears normal and there is a single deepest pocket measurement of 8.4 cm. ??The fetus was active and demonstr ated normal breathing movements. There w as normal flexion and extension of the trunk and extremities. ?? BPD 50th percentile. HC 43rd percentile. Abdominal circumference greater than 98th percentile. FL 28th percentile. Sonographic gestational age 37 weeks 0 days and sonographic due date 01/20/2022. HC/AC 0.94 (0.93-1.11). Estimated weight 3202 grams,82nd percentile. Procedure Note Kenneth Reddy MD - 12/30/2021For matting of this note might be different from the original. For Patients: As a result of the ntury Cures Act, medical imaging exams and procedure reports are released immediately into your electronic medical record. You may view this report before your referring provider. If you have questions, please contact [facility] care provider. INDICATION: Diabetes mellitus, 3rd trimester growth/ BPP COMPARISON: 06/15/2021 TECHNIQUE: Real time torres scale imaging of the fetu s was performed as well as color Doppler and spectral Doppler analysis of the umbilical artery. Without non-stress testing. FINDINGS: Sonographic imaging demonstrates a singl e living intrauterine gestation. Fetus demonstrates a regular cardiac rate of 125 beats per minute. Fetus has a vertex position. The umbilical artery demonstrates adequate diastolic blood flow. The S/D ratio radha ures 2.2. The amniotic fluid volume appears normal and there is a single deepest pocket measurement of 8.4 cm. The fetus was active and demonstrated normal breathing movements. There was normal flexion and extension o f the trunk and extremities. BPD 50th percentile. HC 43rd percentile. Abdominal circumference greater than 98th percentile. FL 28th percentile. Sonographic gestational age 37 weeks 0 days and sonographic due date 01/20/2022. HC/AC 0.94 (0.93-1.11). Estimated weight 3202 grams,82nd p ercentile. IMPRESSION: Normal biophysical profile score of 8 ou t of 8. Sonographic gestational age 37 weeks 0 d ays and sonographic due date 01/20/2022. Sonographic age is 5 days ahead of the clinical age. Estimated weight 82nd percentile. Abdominal circumference greater than 98th percentile. Dictated by Kenneth Reddy MD @ Dec 30 2 022 3:12PM (Electronically Signed) Juliet Horn MD VAGINAL/RECTAL OB STREP PCR (12/20/2021 12:30 PM CDT) Analysis Performed At Patho logist Time Signature Vaginal/Rectal Negative 12/22/2021 [facility] OB Strep B PCR 9:43 AM CDT LABORATORY-CE N TRAL LABORATORY Specimen Anatomical Collection Method Collection Time Receive d Time (Source) Location / / Volume Laterality Other Non-Blood / 12/20/2021 12:30 12/20/2021 1:09 (Vaginal/Rectal) Unknown PM CDT PM CDT Juliet Horn MD MICROBIOLOGY Performing Organization Address City/State/ZIP Code Phon e Number [facility] [address] [place] [address] LABORATORY-CENTRAL 1999 LABORATORY SCAN-LABORATORY REPORT (12/09/2021 12:00 AM CDT)Only the most recent of2 results within the time period is included. Narrative This result has an attachment that is no t available. Scanner OTHER SCAN-PATHOLOGY REPORT (11/27/2021 12:00 AM CDT) Narrative This result has an attachment that is no t available. Scanner OTHER (ABNORMAL) GLUCOSE TOLERANCE,3HR GEST (11/25/2021 12:50 PM CDT) athologist Signature GLUC HELENA,3HR 153 (H) 65 - 140 11/25/2021 [facility] (GEST) mg/dL 1:01 PM CDT [facility] Specimen Anatomical Collection Method / Collection Time Recei giancarlo Time (Source) Location / Volume Laterality Blood BLOOD SPECIMEN / Venipuncture / 11/25/2021 12:50 11/25 Unknown Unknown PM CDT 12:50 PM CDT Juliet Horn MD CHEMISTRY Performing Organization Address City/State/ZIP Code Phon e Number [facility] [address], [place] [id number] (ABNORMAL) GLUCOSE TOLERANCE,2HR GEST (11/25/2021 11:49 AM CDT) P athologist Signature GLUC HELENA,2HR 156 (H) 65 - 155 11/25/2021 [facility] (GEST) mg/dL 11:57 AM CDT [facility] Specimen Anatomical Collection Method / Collection Time Recei giancarlo Time (Source) Location / Volume Laterality Blood BLOOD SPECIMEN / Venipuncture / 11/25/2021 11:49 11/25 Unknown Unknown AM CDT 11:49 AM CDT Juliet Horn MD CHEMISTRY Performing Organization Address City/State/ZIP Code Phon e Number [facility] [address] [place] [address] (ABNORMAL) GLUCOSE TOLERANCE,1HR GEST (11/25/2021 10:49 AM CDT) athologist Signature GLUC HELENA,1HR 186 (H) 65 - 180 11/25/2021 [facility] (GEST) mg/dL 10:57 AM CDT [facility] Specimen Anatomical Collection Method / Collection Time Recei giancarlo Time (Source) Location / Volume Laterality Blood BLOOD SPECIMEN / Venipuncture / 11/25/2021 10:49 11/25 Unknown Unknown AM CDT 10:50 AM CDT Juliet Horn MD CHEMISTRY Performing Organization Address City/State/ZIP Code Phon e Number [facility] [address] [place] [address] GLUCOSE TOLERANCE,FASTING GEST (11/25/2021 9:35 AM CDT) athologist Signature GLUC HELENA,FAST 76 65 - 95 11/25/2021 [facility] (GEST) mg/dL 9:39 AM CDT [facility] Specimen Anatomical Collection Method / Collection Time Recei giancarlo Time (Source) Location / Volume Laterality Blood BLOOD SPECIMEN / Venipuncture / 11/25/2021 9:35 2021 9:36 Unknown Unknown AM CDT AM CDT Juliet Horn MD CHEMISTRY Performing Organization Address City/[facility]/ZIP Code Phon e Number [facility] [address] [place] [address] (ABNORMAL) HEMOGLOBIN (10/31/2021 2:32 PM CDT) athologist Signature HEMOGLOBIN 10.4 (L) 12.0 - 10/31/2021 [facility] 16.0 g/dL 2:38 PM CDT [facility] MCV 88 80 - 100 10/31/2021 [facility]L 2:38 PM CDT [facility] Specimen Anatomical Collection Method / Collection Time Recei giancarlo Time (Source) Location / Volume Laterality Blood BLOOD SPECIMEN / Venipuncture / 10/31/2021 2:32 2021 2:34 Unknown Unknown PM CDT PM CDT Juliet Horn MD HEMATOLOGY Performing Organization Address City/State/ZIP Code Phon e Number [facility] [address] [place] [address] (ABNORMAL) GLUCOSE,GESTATIONAL (10/31/2021 2:32 PM CDT) athologist Signature GLUCOSE,GESTAT 143 (H) 65 - 140 10/31/2021 [facility] IONAL mg/dL 2:41 PM CDT [facility] Specimen Anatomical Collection Method / Collection Time Recei giancarlo Time (Source) Location / Volume Laterality Blood BLOOD SPECIMEN / Venipuncture / 10/31/2021 2:32 2021 2:34 Unknown Unknown PM CDT PM CDT Juliet Horn MD CHEMISTRY Performing Organization Address City/State/ZIP Code Phon e Number [facility] [address] [place] [address] from Last 3 Months Insurance Payer Benefit Plan / Subscriber ID Effective Dates Phone Addre ss Type Group [employer] [id number] 2014-Pres [facility] [address] [place] [address] [employer]VA [employer] [id number] 2015-Presen [facility] [address] [place] [address] WC WORKERS HEMANTH [id number] 2013-Prese 2000 [employer] [address] [phone] [place] [address] [employer] [place] [employer] [id number] 2021-Presen [address] [address] [place] [address] (Home) [place] [id number] [employer] [place] Workers Comp Self [address] (Home) [place] [id number] Tracie [place] Motor Vehicle Self [address] (Home) [place] [id number] Tracie [place] Motor Vehicle Self 1995 [id number] (Home) [place] [address] Tracie [place] Motor Vehicle Self 1995 [id number] (Home) [place] [id number] Advance Directives Latest Code Status on File Code Status Date Activated Date Inactivated Comments Full Code 07/06/2011 4:00 PM 07/14/2011 5:31 PM Care Teams Metal Tank Erector Relationship Specialty Start Date End Date Juliet Horn PCP - General Family Practice 06/17/[address] [place] [address] [place] [address] Bookkeeping Manager Roll Bucker 12/22/21 01/25/22 [address] [place] [id number]
--- OUTSIDE RECORDS SUMMARY | 2022-01-07 13:58 | XMS_ITS ---
:1995 Author Care Team Providers Name Role Phone DR. EVY SANFORD Primary Care Provider [phone] DR. EVY SANFORD Referring Provider [phone] Allergies Code Code System Name Reaction Severity Status Onset 723 RxNorm Amoxicillin ? ? Active ? Medications Name Status Start Date Stop Date ? ? albuterol sulfate 2.5 mg/3 mL (0.083 %) solution for Unknown ? Not available nebulization azithromycin 250 mg tablet Unknown ? Not a vailable Bl[place] Fe 1.5/30 (28) 1.5 mg-30 mcg (21)/75 mg (7) Active ? Not available tablet cefdinir 300 mg capsule Unknown ? Not avai lable Drysol 20 % topical solution Unknown ? Not available fluoxetine 10 mg capsule Unknown ? Not fatmata ilable Fluoxetine 10 mg capsule Completed ? 018 Take 1 capsule every day by oral route. gabapentin 100 mg capsule Unknown ? Not av ailable gabapentin 300 mg capsule Active ? Not av ailable 1 capsule every day by oral route. methylphenidate Completed ? 07/03/2017 methylphenidate 20 mg tablet Active ? Not available TID methylphenidate ER 10 mg tablet,extended release Unknown ? Not available methylphenidate ER 20 mg tablet,extended release Unknown ? Not available mupirocin calcium 2 % topical cream Unknown ? Not available prednisone 20 mg tablet Unknown ? Not avai lable tramadol 50 mg tablet Active ? Not availa ble 1 tablet as needed by oral route. Notes: Patient also takes daily tablet for control. 07-03-17 js Problems Name Status Onset Date Source ? Episodic Tension-type Headache Active 07/03/2017 ? 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 Myofascial Pain Active 07/03/2017 ? Traumatic Brain Injury Active 07/03/2017 ? Arthralgia of Temporomandibular Joint Active 07/03/2017 ? Procedures Date Name Performed by ? 09/30/2009 ENT/Sinus Surgery Information not avai lable 09/30/2009 Tonsillectomy Information not avai lable ? [place] Teeth Extraction Information not available 07/03/2017 XR, Orthopantogram [place] [address] [place] [phone] (Work Place) Results Lab Results Date Name Specimen Result Interpretation Description Value Range Status Address ? ? XR, Orthopantogram ? No observation ? ? ? [place]: [address], [place] ? Oral Appliance ? No observation ? ? ? [place]: [address], [place] ? Behavioral Health ? No observation ? ? ? [place]: [address], [place] Past Encounters None recorded. Social History Tobacco Smoking Status Current Every Day Smoker Vaccine List Vaccine Type influenza, injectable, quadrivalent 01/31/2017 Plan of Care Reminders Provider Appointments None recorded. ? ? Lab None recorded. ? ? Referral None recorded. ? ? Procedures None recorded. ? ? Surgeries None recorded. ? ? Imaging None recorded. ? ? Vitals 07/17/2017 12:00PM SPLINT INSERT Height Weight BMI 5 ft 3 in 135 lbs 23.9 kg/m2 07/03/2017 01:00PM NEW PATIENT 60 Height Weight BMI Blood Pressure 5 ft 3 in 135 lbs 23.9 kg/m2 150/126 mm[Hg]
[2022-01-07 14:14] VITALS: BP 115/66; PULSE 93; RESP 14; TEMP 36.8
[2022-01-07 14:15] VITALS: TEMP 36.8
[2022-01-07 14:17] VITALS: BP 115/66; PULSE 93
[2022-01-07 14:40] LABS: Amnisure Rom* Negative
--- NOTE | 2022-01-07 15:20 | PC.OBNST ---
NST Note NST Note Start: 01/07/22 14:03 Freq: ONCE Status: Active Protocol: Document 01/07/22 15:00 LP (Rec: 01/07/22 15:20 LP [id number]) NST Note 2 Para (# of births) 1 EDC 01/25/22 Gestational Age In Weeks & Days 37 Weeks & 3 Days High Risk Factors Diabetes - Gestational Diet Controlled Patient Presented with Complaint(s) of Leaking fluid Other Complaints Pt. states she lost her mucus plug earlier and is having watery discharge. Unsure if she is ruptured or not. Reactive Yes Appropriate for Gestational Age Yes SANTIAGO Holcomb, RN Date 01/07/22 Reactive Yes Appropriate for Gestational Age Yes SANTIAGO Porter, RN Date 01/07/22 OB NST charge Yes Complete NST Note via Write Note Yes The provider's electronic signature indicates the NST is reactive/appropriate for gestational age. *Note to provider: If an addendum is required, open the patient's chart and click on the note under the Nurse/Allied Health tab.
== END 2022-01-07 15:10 | disposition home or self-care (01) ==
LOC: OB OUT 13:56 → OB 13:58
PROVIDERS: PCP Family Medicine; Visit Provider Family Medicine
DX: O24.419 Gestational diabetes mellitus in pregnancy, unspecified control (principal); Z3A.37 37 weeks gestation of pregnancy
CPT/HCPCS: 59025; 84112; 99213

== ENCOUNTER 2022-01-13 10:52 | Inpatient (IN) | payer BC, SELFPAY ==
[2022-01-13] VITALS (59 sets, daily range): BP systolic 117–158; BP diastolic 59–110; PULSE 85–157; RESP 16–18; TEMP 36.6–36.8; O2SAT 91–100; BMI 31.7
--- OUTSIDE RECORDS SUMMARY | 2022-01-13 10:33 | XMS_ITS ---
:1995 Author Care Team Providers Name Role Phone DR. EVY SANFORD Primary Care Provider [phone] DR. EVY SANFORD Referring Provider [phone] Allergies Code Code System Name Reaction Severity [...] 09/30/2009 Tonsillectomy Information not avai lable ? [place] Teeth Extraction Information not available 07/03/2017 XR, Orthopantogram [place] [address] [place] [address] (Work Place) Results Lab Results Date Name Specimen Result Interpretation Description Value Range Status Address ? ? XR, Orthopantogram ? No observation ? ? ? [place]: [address], [place] ? Oral Appliance ? No observation ? ? ? [place]: [address], [place] ? Behavioral Health ? No observation ? ? ? [place]: [address] [...]
--- OUTSIDE RECORDS SUMMARY | 2022-01-13 10:33 | XMS_ITS | Clinical Summary ---
:1995 Author Organization [facility] [place] [address] Care Team Providers Name Role Phone Juliet Horn MD Primary Care Provider [phone] Unavailable Allergies Active Allergy [...] meal. reflux disease, unspecified whether esophagitis present blood sugar Dispense item 150 Each 3 01/10/20 Acti ve diagnostic covered by pt 22 (Accu-Chek Guide ins. O99.810 test strips) Gestational DM stripIndications: - Test 4 Gestational diabetes times/day. New mellitus (GDM) in diabetes third trimester, gestational diabetes method of control unspecified omeprazole Take 1 Capsule 90 Capsule 1 10/17/19 Dis continued (PRILOSEC) 20 mg (20 mg) by 22 022 (R eorder Delayed-Release mouth once (E- cancel not capsuleIndications: daily before a sent)) Gastroesophageal meal. reflux disease, unspecified whether esophagitis present blood sugar Dispense item 150 Each 3 11/30/19 Disc ontinued diagnostic covered by pt 22 022 (Reor vivek (Accu-Chek Guide ins. O99.810 (E-cancel not test strips) Gestational DM se nt)) stripIndications: - Test 4 Gestational diabetes times/day. New mellitus (GDM) in diabetes third trimester, gestational diabetes method of control unspecified Active Problems Problem Noted Date , supervision, [...] Component Latest Ref Rng & Units 06/13/2021 022 06/13/2021 11:50 AM 11:50 AM 12:03 PM [...] patient. ?? Present findings are reassuring. The kinjal ienathalie was seen by the Perinatologist today. The previous ultrasound and the rec ords were reviewed. The results of today's ultrasound were communicated to the patient. ?? Medical Decision Making: Low Level 68352 Limited Diagnoses including two or more self-limited problems, and family history significant for history of neural tube defects. Limited Data including review of prior ultrasound and review of prior external notes Minimal risk of mortality to the fetus from additional testing. ?? Services Provided: Procedures Code DETAIL ANATOMY 83256.0 Genesis Maynard RN.....06/01/2021 2:11 PM Severe episode [...] was provided with contact information for the [facility] [place] [facility] in [place], [place]. She will likely benefit from interventions that help her to make use of her reasoning and problem-solvin g abilities to address her variable attention, information processing speed, and learning. 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 The [...] No problems associated with this episod e. Genesis Larkin RNC.....05/10/2018 9:37 AM Moderate dependence on smoking 11/14/2015 8 Major depressive disorder, single episode, severe, without 0 07/07/2011 08/14/2017 mention of psychotic behavior Panic disorder without agoraphobia 07/07/201107/31 Adjustment disorder with mixed anxiety and depressed mood 07/31/2017 Vasovagal syncope 09/13/2010 09/13/2010 Streptococcal sore throat 09/16/2008 01/14/2010 Overview: recurrent Tonsillar and adenoid hypertrophy 09/16/20082009 Encounters Date Type Specialty Care Team Description 01/12/2022 OB Encounter Juliet Horn (38 devendra Rivas MD 1 day - lots of back pain ) 01/12/2022 Ancillary Procedure Arrived 01/12/2022 Travel 01/09/2022 OB Encounter Juliet Horn MD 01/09/2022 Ancillary Procedure Arrived 01/09/2022 Travel 01/07/2022 Orders Only Scanner <No scans attac hed> 01/05/2022 Ancillary Procedure 01/05/2022 OB Encounter Juliet Horn Care (37 w 1 MD Evleyn ) 01/05/2022 Travel 01/03/2022 OB Encounter Juliet Horn (NST) MD Evelyn 01/03/2022 Travel 12/30/2021 Ancillary Procedure 12/30/2021 Travel 12/30/2021 Refill Juliet Horn Reffaisal Request MD Evelyn (Accu-chek Guid e Test [...] Encounter Cindy Mcgregor, Follow Up (Patient was seen in ER on riday. Patient was vandana y dehydrated and throwing up all day. 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 See encounter summary. 09/02/2021 19w2d Inpatient data not d isplayed here. See encounter summary. Progress Notes 01/12/2022 - 38w1d - Soumya Horn MD Getting very uncomfortable. Having back pain. She now cannot lie on her right side because she will have pain in her back. Yesterday she had back pain that occurred approximately every 20 minutes on the right side only. She does not feel that her stomach is tightening. Denies leaking of fluid, vaginal bleedin g, headache increased swelling. She was seen over the weekend for possib le rupture membranes negative AmniSure. Blood sugars patient reports that all of her fasting in the morning are less than 90 and 2 hours after eating are less than 140 except for 1 day when she was having vomiting blood sugars were higher. (She did not bring in her book to review.) Biophysical profile today 8 out of 8 wit h deepest pocket amniotic fluid of 10.8 which is mild polyhydramnios. Cervical exam initially was 3 cm but was able to stretch her to 4-5. Membranes were stripped. Vertex position is ballotable. Blood pressure was higher normal range f or patient and recheck actually after discussion was slightly higher. She denies any symptoms. We did review what to watch for and when to call. She has her next biophysical profile on Sunday and will see patient after biophysical for blood pressure etc. She is scheduled for induction at 39 wee mo. Signed electronically by Tea Horn MD ......... 5:54 P M 01/12/2022 01/09/2022 - 37w5Soumya Harmon MD Patient Had biophysical profile today re ceived 6 out of 8 with 2 points off for no breathing activity. NST done and reactive for total score 8/ 10 Blood sugar under goal per patient excep t Sat 01/07 when had vomiting all day and blood sugar all screwed up Follow up at OB appointment 01/12 BIOPHY SICAL PROFILE 01/13 Signed electronically by Tea Horn MD ......... 3:50 P M 01/09/2022 01/05/2022 - 37w1d - Soumya Honr MD BIOPHYSICAL PROFILE 11/07 today gestationa l [...] ......... 6:26 P M 01/05/2022 01/03/2022 - 36w6Soumya Harmon MD NST reactive today. Had a hard [...] Reviewed when to call Signed electronically by eTa Horn MD ......... 4:18 P M 01/03/2022 12/26/2021 - 35w5Soumya Harmon MD Subjective: Patient is here for OB [...] She had made dietary changes since attila naranjo diabetic education. One of days she was [...] been in good control since seeing the clinical trial educator. No insulin or oral hypoglycemics have been [...] MD ......... 11:59 AM 12/20/2021 12/12/2021 - 33w5paige - Cindy Mcgregor MD Tracie Trujillo is a 26 y.o. female here for recheck on GI illness. Seen at [place] ED on 12/09/2021 for this, treated with IVF, zofran. monitoring reassuring per patient. Since then nausea/ vomi ting/ diarrhea are slowly resolving. Had urine ketones Sunday, now better but not resolved. Able to eat normally yesterday and today. Good movement. Preschool age daughter with recent diarrhea, estefania sánchez cares for children in her home dur [...] Continue with routine care with PCP in [place]. Patient indicates understanding and agre ement with [...] g, increased swelling. Think she has some [place] contrac tions nothing that is getting [...] recently. They are moving bought house in [place], sister date coming up October 09, missing child in town troubling for her also. Results for orders placed or performed i n visit on 10/06/21 HEMOGLOBIN Result Value Ref Range Status HEMOGLOBIN 11.4 (L) 12.0 - 16.0 g/dL Fi nal MCV 88 80 - 100 fL Final Recommend patient start iron Reviewed when to call [place] copy to [facility] Signed electronically by Tea Horn MD ......... [...] ?? Present findings are reassuring. The pat yojana was seen by the Perinatologist today. The previous ultrasound and the rec ords were reviewed. The results of today's ultrasound were communicated to the patient. ?? Medical Decision Making: Low Level 87668 Limited Diagnoses including two or more self-limited [...] - 19w2d - Kennedy Damon MBBS 1 [facility] Ultrasound Visit Your [facility]. The report is ready and can be found in the Results review [facility]. The Impression from the report is [...] icated. COMMENT: New government regulations related to Cures [...] the patient. Medical Decision Making: Low Level 50856 Limited Diagnoses including two or more self-limited problems, and family history significant for history of neural tube defects. Limited Data including review of prior ultrasound and review of prior external notes Minimal risk of mortality to the fetus from additional testing. Services Provided: Procedures Code DETAIL ANATOMY 06931.0 08/08/2021 - 15w5paige - Soumya Horn MD The patient was seen in conjunction with Dr. Rubio, PGY-2. I agree with her documentation. I also saw and examined the patient. Signed electronically by Tea Horn MD ......... 8:04 P M 08/08/2021 08/08/2021 - 15w5paige - Sade Rubio MD Tracie Trujillo is [...] FU. Precepted with Dr. Juliet Horn w ho also saw and evaluated the patient. Sade Rubio MD .................... 08/08/2021 11:[facility] 07/25/2021 - 13wmadiha - Emilie Duran MS, C GC / Clinic Note Genetic Counseling RE: Tracie Trujillo : 1995 MR: [id number] Partner name: Timothy-Not present senior treasury consultant Referred By: Juliet Horn MD Indication for Visit: Family history of anencephaly and leukod ystrophy History: VICKY: 01/25/2022 GAA: 13 weeks 6 days Complete genetic screening/testing: ?? Low risk NIPS Medications: Cymbalta, discontinued Yue marquis, Zyprexa Exposures/infections: none reported Family History: A 3 generation pedigree was obtained at today's visit ? ? Maternal history notable for: o Brother with anencephaly o Tracie's father is one of nine sibling s. [...] do not hesitate to contact me at [phone] with any additional questions or concerns. Sincerely, Emilie Duran MS, [facility] Licensed Genetic Counselor Total time: 50 minutes in person Virtual Visit: As the provider for this virtual visit, I attest that I introduced myself to the patient, provided my credentials, disclosed my location, and determined that, based on a review of the [facility] chart and/or a discussion with mem bers of the patient's treatment team, telemedicine via a real-time, two-way, interactive audio and video platform is an appropriate and effective means of providi ng this service. The patient and I mutua lly agree that this visit is appropriate for telemedicine as well. Patient location (originating site city/ state): [place], [place] Provider location (distant site [facility] [place], [place] Video/Phone start time (include am/pm de signation): 1:00 PM Video/Phone end time (include am/pm chito gnation): 1:50 PM [facility], [address] [place] [address] 07/11/2021 - d - Soumya Horn MD The patient was seen in conjunction with Dr. Plunkett, PGY-2. I agree with her documentation. I also saw and examined the patient. Signed electronically by Tea Horn MD ......... 4:52 P M 07/11/2021 07/11/2021 - - Sade Rubio MD Tracie Trujillo is [...] Garry alonso 4. [facility] to further discuss possible additional genetic testing given family history, per patient preference 5. Reviewed labor precautions. 6. Return in 4 wks for OB FU. Precepted with Dr. Horn who also saw and evaluated the patient Sade Rubio MD ................... . 07/11/2021 11:42 AM 06/13/2021 - 7w5d - Juliet Horn MD VISIT FIRST OBSTETRICAL EXAM Patient's last menstrual period was 03/02 (exact date). Estimated Date of Delivery: 12/22/21 Tracie Trujillo is a 25 y.o. female G2 P 1 is here today for her First Obstetrical Exam. Now has morning sickness started about 1 wk ago. HPI: Patient had an ultrasound done at [facility]. Appears that she is not as far [...] Delivery Anes PTL Lv 2 Current 1 MANAGER LAB HX: MENSTRUAL HISTORY Date Reliability:good Reviewed OB [...] patient. Questions answered. 6 - 14 WEEKS: [place] Risk A ssessment Form completed, Urine Culture [...] ANTI HCV GC & CHLAMYDIA DNA PCR [[id number]] HEMOGLOBIN ANTI HIV 1/2 ABORH TYPE HBSAG (HBS) TREPONEMA PALLIDUM RUBELLA IMMUNE STATUS UA W/ SEDIMENT EXAM REFLEXED PER CRITER IA URINE CULTURE VARICELLA ZOSTER IMM ASSY ANTIBODY SCREEN HEMOGLOBIN A1C MONITORING (POCT) ANTI HCV GC & CHLAMYDIA DNA PCR [[id number]] DNA SCREEN SEND OUT URINALYSIS MICROSCOPIC She [...] norethin jovita-eth estrad-fe, 1.5-30 mg-mcg, (Aurovela Fe 1.5, 28,) 1.5 mg-30 mcg (21)/75 mg (7) [...] time preparing to see this patient , kgxs-gi-gpdl time, and coordinating care time on the same calendar date: 40 minutes. Signed electronically by Tea Horn MD ......... 10:15 AM 05/31/2021 This note consists of elements derived f [employer] keyboarding and voice recognition software and as a result may contain minor grammatical errors and unintended word substitutions. While every effort was made to prevent this, please keep this in mi nd as this document is utilized. 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 Respiratory Rate 18 11/15/2020 1:10 PM CDT Oxygen Saturation 100% 01/12/2022 4:43 PM CDT Inhaled Oxygen Concentration - - Weight 84.6 kg (186 lb 9.6 oz) 01/12/2022 4:43 PM CDT Height 166.6 cm (5' 5.59) 12/12/2021 8:52 AM CDT Body Mass Index 30.49 12/12/2021 8:52 AM CDT Plan of Treatment Upcoming Encounters Date Type Specialty Care Team Description 01/16/2022 OB Encounter Regina Horn MD [address] 5 [phone] (Wo rk) 01/16/2022 Ancillary Procedure 01/19/2022 Ancillary Procedure 01/19/2022 [...] Diagnosis Comme nts US OB BIOPHYSICAL Routine 01/12/2022 2:24 PM Gestational diabe duane Results for this PROFILE SINGLE WO CDT mellitus (GDM) in [facility] are in NST third trimester, the results gestational diabetes section . method of control unspecified US OB BIOPHYSICAL Routine 01/09/2022 2:29 PM Gestational diabe duane Results for this PROFILE SINGLE WO CDT mellitus (GDM) in [facility] are in NST third trimester, the results gestational diabetes section . method of control unspecified SCAN-LABORATORY 01/07/2022 12:00 Results for this REPORT AM CDT procedure are i n the results section. OB BIOPHYSICAL Routine 01/05/2022 4:19 PM Gestational diabe duane Results for this PROFILE SINGLE WO CDT mellitus (GDM) in [facility] are in NST third trimester, the results gestational diabetes section . method of control unspecified OB BIOPHYSICAL Routine 12/30/2021 3:04 PM Encounter for Res ults for this PROFILE AND FOLLOW CDT supervision of procedu re are in UP SINGLE normal , the result s antepartum, section. unspecified Diet controlled gestational diabetes mellitus (GDM) in third trimester VAGINAL/RECTAL OB Routine 12/20/2021 12:30 Encounter for Resul ts for this STREP PCR PM CDT supervision of procedure are in normal , the result s antepartum, section. unspecified SCAN-LABORATORY 12/09/2021 12:00 Results for this REPORT AM CDT procedure are i n the results section. SCAN-PATHOLOGY 11/27/2021 12:00 Results f or this REPORT AM CDT procedure are i n the results section. SCAN-LABORATORY 11/27/2021 12:00 Results for this REPORT AM CDT procedure are i n the results section. GLUCOSE Routine 11/25/2021 12:50 Abnormal glucose Results for this TOLERANCE,3HR GEST PM CDT level procedure are in the results section. GLUCOSE Routine 11/25/2021 11:49 Abnormal glucose Results for this TOLERANCE,2HR GEST AM CDT level procedure are in the results section. GLUCOSE Routine 11/25/2021 10:49 Abnormal glucose Results for this TOLERANCE,1HR GEST AM CDT level procedure are in the results section. GLUCOSE Routine 11/25/2021 9:35 AM Abnormal glucose Resul ts for this TOLERANCE,FASTING CDT level procedure are in GEST the results section. GLUCOSE TOLERANCE,3H Routine 11/25/2021 9:35 AM Abnormal gluco se Results for this GEST CDT level procedure are i n the results section. HEMOGLOBIN Routine 10/31/2021 2:32 PM Encounter for Results for this CDT supervision of procedure are in normal , the result s antepartum, section. unspecified GLUCOSE,GESTATIONAL Routine 10/31/2021 2:32 PM Encounter for R esults for this CDT supervision of procedure are in normal , the result s antepartum, section. unspecified from Last 3 Months Results US OB BIOPHYSICAL PROFILE SINGLE WO NST (01/12/2022 2:24 PM CDT)Only the most recent of3 resultswithin the time period is included. Anatomical Region Laterality Modality Ultrasound Specimen (Source) Anatomical Collection Method Collection Time Re ceived Time Location / / Volume Laterality 01/12/2022 2:54 PM CDT Impressions 01/12/2022 2:54 PM CDT Normal biophysical profile score of 8 out of 8. Increased single deepest pocket amniotic fluid measuring 10.8 cm. Dictated by Kenneth Reddy MD @ Jan 12 2 022 ??2:54PM (Electronically Signed) ?? Narrative 01/12/2022 2:54 PM CDT For Patients: ??As a result of the Century Cures Act, medical imaging exams and procedure report s are released immediately into your [facility] medical record. ??You may view this report before your referring provider. ??If you have questions, please contact your health care provider. INDICATION: Gestational diabetes COMPARISON: 01/09/2022 TECHNIQUE: Real time torres scale imaging of the fetu s was performed as well as color Doppler and spectral Doppler analysis of the umbilical artery. Without non-stress testing. FINDINGS: Sonographic imaging demonstrates a singl e living intrauterine gestation. ??Fetus demonstrates a regular cardiac rate of 125 beats per minute. ??Fetus has a vertex orientation with spine to the mat ernal right. The umbilical artery demons trates adequate diastolic blood flow. ??The S/D ratio measures 2.1. The amniotic fluid volume appears mildly increased and there is a single deepest pocket measur ement of 10.8 cm. ??The fetus was active and demonstrated normal breathing movements. There was normal flexion and extension of the trunk and extremities. ?? Procedure Note Kenneth Reddy MD - 01/12/2022For matting of this note might be different from the original. For Patients: As a result of the ntury Cures Act, medical imaging exams and procedure reports are released immediately into your electronic medical record. You may view this report before your referring provider. If you have questions, please contact [facility] health care provider. INDICATION: Gestational diabetes COMPARISON: 01/09/2022 TECHNIQUE: Real time torres scale imaging of the fetu s was performed as well as color Doppler and spectral Doppler analysis of the umbilical artery. Without non-stress testing. FINDINGS: Sonographic imaging demonstrates a singl e living intrauterine gestation. Fetus demonstrates a regular cardiac rate of 125 beats per minute. Fetus has a vertex orientation with spine to the maternal right. The umbilical artery demonstrates adequate d iastolic blood flow. The S/D ratio measures 2.1. The amniotic fluid volume appears mildly increased and there is a single deepest pocket measurement of 10.8 cm. The fetus was active and demonstrated normal breathing movements. There was normal flexion and extension of the trunk and extremities. IMPRESSION: Normal biophysical profile score of 8 ou t of 8. Increased single deepest pocket amniotic fluid measuring 10.8 cm. Dictated by Kenneth Reddy MD @ Jan 12 2 022 2:54PM (Electronically Signed) Juliet Horn MD US SCAN-LABORATORY REPORT (01/07/2022 12:00 AM CDT)Only the most recent of3 results within the time period is included. Narrative This result has an attachment that is no t available. Scanner OTHER US OB BIOPHYSICAL PROFILE AND FOLLOW UP [...] report s are released immediately into your [facility] medical record. ??You may view this [...] For Patients: As a result of the Cures Act, medical imaging exams and procedure reports are released immediately into your electronic medical record. You may view this report before your referring provider. If you have questions, please contact yo health care provider. INDICATION: Diabetes mellitus, 3rd [...] Patho logist Time Signature Vaginal/Rectal Negative 12/22/2021 [facility] OB Strep B PCR 9:43 AM CDT LABORATORY-CE N TRAL LABORATORY Specimen Anatomical Collection Method Collection Time Receive d Time (Source) Location / / Volume Laterality Other Non-Blood / 12/20/2021 12:30 12/20/2021 1:09 (Vaginal/Rectal) Unknown PM CDT PM CDT Juliet Horn MD MICROBIOLOGY Performing Organization Address City/State/ZIP Code Phon e Number [facility] [address] [place] [address] LABORATORY-CENTRAL 1999 LABORATORY SCAN-PATHOLOGY REPORT (11/27/2021 12:00 AM CDT) Narrative This result has an attachment that is no t available. Scanner OTHER (ABNORMAL) GLUCOSE TOLERANCE,3HR GEST (11/25/2021 12:50 PM CDT) athologist Signature GLUC HELENA,3HR 153 (H) 65 - 140 11/25/2021 [facility] (GEST) mg/dL 1:01 PM CDT [facility] Specimen Anatomical Collection Method / Collection Time Recei giancarlo Time (Source) Location / Volume Laterality Blood BLOOD SPECIMEN / Venipuncture / 11/25/2021 12:50 11/25 Unknown Unknown PM CDT 12:50 PM CDT Juliet Horn MD CHEMISTRY Performing Organization Address City/[facility] Phon e Number [facility] [address] [place] [address] (ABNORMAL) GLUCOSE TOLERANCE,2HR GEST (11/25/2021 11:49 AM CDT) athologist Signature GLUC HELENA,2HR 156 (H) 65 - 155 11/25/2021 [facility] (GEST) mg/dL 11:57 AM CDT [facility] Specimen Anatomical Collection Method / Collection Time Recei giancarlo Time (Source) Location / Volume Laterality Blood BLOOD SPECIMEN / Venipuncture / 11/25/2021 11:49 11/25 Unknown Unknown AM CDT 11:49 AM CDT Juliet Horn MD CHEMISTRY Performing Organization Address City/[facility]/ZIP Code Phon e Number [facility] [address] [place] [address] (ABNORMAL) GLUCOSE TOLERANCE,1HR GEST (11/25/2021 10:49 AM CDT) athologist Signature GLUC HELENA,1HR 186 (H) 65 - 180 11/25/2021 [facility] (GEST) mg/dL 10:57 AM CDT [facility] Specimen Anatomical Collection Method / Collection Time Recei giancarlo Time (Source) Location / Volume Laterality Blood BLOOD SPECIMEN / Venipuncture / 11/25/2021 10:49 11/25 Unknown Unknown AM CDT 10:50 AM CDT Juliet Horn MD CHEMISTRY Performing Organization Address City/State/ZIP Code Phon e Number [facility] [address] [place] [address] GLUCOSE TOLERANCE,FASTING GEST (11/25/2021 9:35 AM CDT) athologist [facility] GLUC HELENA,FAST 76 65 - 95 11/25/2021 [facility] (GEST) mg/dL 9:39 AM CDT [facility] Specimen Anatomical Collection Method / Collection Time Recei giancarlo Time (Source) Location / Volume Laterality Blood BLOOD SPECIMEN / Venipuncture / 11/25/2021 9:35 2021 9:36 Unknown Unknown AM CDT AM CDT Juliet Horn MD CHEMISTRY Performing Organization Address City/[facility]/ZIP Code Phon e Number [address] [id number] (ABNORMAL) HEMOGLOBIN (10/31/2021 2:32 PM CDT) athologist [facility] HEMOGLOBIN 10.4 (L) 12.0 - 10/31/2021 [facility] 16.0 g/dL 2:38 PM CDT [facility] MCV 88 80 - 100 10/31/2021 [facility] fL 2:38 PM CDT [facility] Specimen Anatomical Collection Method / Collection Time Recei giancarlo Time (Source) Location / Volume Laterality Blood BLOOD SPECIMEN / Venipuncture / 10/31/2021 2:32 2021 2:34 Unknown Unknown PM CDT PM CDT Juliet Horn MD HEMATOLOGY Performing Organization Address City/State/ZIP Code Phon e Number [address] [address] (ABNORMAL) GLUCOSE,GESTATIONAL (10/31/2021 2:32 PM CDT) athologist [facility] GLUCOSE,GESTAT 143 (H) 65 - 140 10/31/2021 [facility] IONAL mg/dL 2:41 PM CDT [facility] Specimen Anatomical Collection Method / Collection Time Recei giancarlo Time (Source) Location / Volume Laterality Blood BLOOD SPECIMEN / Venipuncture / 10/31/2021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
--- NOTE | 2022-01-13 11:22 | PM.OBHPAP1 ---
OB - H&P; HPI Antepartum History of Present Illness Date Seen: 01/13/22 Chief complaint: contractions Narrative: Tracie Trujillo is a 26 year old female who had start on contractions at appox 5:00 this morning. contractions started to become stronger at approximately 9:00 this morning History of Present care: good care Ultrasounds: normal 1st trimester US and other (growth usd at 36 wks and bpp/NST biweekly for gestational diabetes.) complications: gestational diabetes (diet controlled) Labs Blood type: O (+) positive Rubella: immune RPR/VDLR: nonreactive GBS status: negative HBsAG: negative Review of Systems Status of ROS: Reports: other (having contractions increasing in intensity. no other reported symptoms) Meds Home Medications and Allergies Home Medications Medication Instructions Recorded Confirmed Type Iron (ferrous sulfate) 11/07/21 History 11/07/21 History cholecalciferol (vitamin D3) 125 11/07/21 History mcg (5,000 unit) tablet (Vitamin D3) olanzapine 5 mg tablet mg 11/07/21 History omeprazole 20 mg capsule,delayed mg 11/07/21 History release duloxetine 60 mg capsule,delayed mg PO 12/09/21 History release Allergies Allergy/AdvReac Type Severity Reaction Status Date / Time amoxicillin Allergy Unknown Verified 12/09/21 21:10 OB - H&P: Exam Physical Exam: Vital signs: Temp Pulse Resp BP Pulse Ox 98.3 F 102 H 16 117/84 98 01/13/22 11:02 01/13/22 10:47 01/13/22 11:02 01/13/22 10:47 01/13/22 11:21 Narrative: HEENT: Eyes: no lid swelling, scleral itcterus or redness Ears: Normal external ears Nose: No drainage Oropharynx: Moist mucous membranes Heart RRR without murmur Lungs: clear. Abdomen: gravid Extremities: mild swelling Skin: pink and warm Mental status: appropriate affect OB - A/P Antepartum Assessment and Plan (1) : Status: Acute (2) Gestational diabetes: Status: Acute Plan in active labor 8 cm at presentation membranes intact. Additional Plan Plan: expectant management
[2022-01-13 11:56] LABS: SARS PCR* Negative SARS-CoV-2 (Negative)
[2022-01-13 14:21] LABS: Amphetamine Screen Urine Negative (Negative); Barbiturate Screen Urine Negative (Negative); Benzodiazepines Screen Urine Negative (Negative); Cannabinoid Screen Urine Negative (Negative); Cocaine Screen Urine Negative (Negative); Methadone Screen Urine Negative (Negative); Methamphetamines Screen Urine Negative (Negative); Opiate Screen Urine Negative (Negative); Oxycodone Screen Urine Negative (Negative); Phencyclidine Screen Urine Negative (Negative); Tricyclic Antidepressant Urine Negative (Negative)
[2022-01-13] MEDS: miSOPROStoL 800 MCG/4 TABLET PR (17:03)
[2022-01-13] MEDS: METHYLERGONOVINE MALEATE 0.2 MG/ML INJ IM (17:07)
[2022-01-13] MEDS: LOPERAMIDE HCL 2 MG CAPSULE 4 MG PO (17:22)
[2022-01-13] MEDS: KETOROLAC 30 MG/ML inj IVP (17:28)
[2022-01-13] MEDS: ONDANSETRON 2 MG/ML inj 4 MG IV (17:43)
[2022-01-13] MEDS: fentaNYL 100 MCG/2 ML inj IVP (17:57)
[2022-01-13] MEDS: OXYTOCIN 30 unit/500 ML in NS 30 UNIT/500 ML BAG 300 UNIT IVPB (17:58)
[2022-01-13] MEDS: TRANEXAMIC ACID 100 MG/ML INJ 1000 MG IV (18:20)
[2022-01-13] MEDS: LACTATED RINGERS 1000 ML 1,000 ML 125 ML IV (18:25)
[2022-01-13 18:29] LABS: Basophils Absolute Auto 0.01 K/uL (0.00-0.30); Basophils Percent Auto 0.1 % (0.0-3.0); Eosinophils Absolute Auto 0.09 K/uL (0.00-0.50); Eosinophils Percent Auto 0.9 % (0.0-7.0); Hematocrit 32.7 % (33.0-51.0); Hemoglobin* 10.9 gm/dL (12.0-16.0); Immature Granulocytes Abs Auto 0.03 K/uL (0.00-0.30); Lymphocytes Percent Auto 19.8 % (20-44); Mean Corpuscular HGB Conc 33 gm/dL (32-36); Mean Corpuscular Hemoglobin 29 pg (26-34); Mean Corpuscular Volume 86 fL (80-100); Monocytes Percent Auto 9.3 % (0.0-11.0); Neutrophils Absolute Auto 7.07 K/uL (1.7-7.0); Neutrophils Percent Auto 69.6 % (42.0-72.0); Platelet Count* 244 K/uL (140-440); RDW Coefficient of Variation % 12.8 % (11.5-15.5); Red Blood Count 3.81 m/uL (4.00-5.20); White Blood Count* 10.15 K/uL (4.50-11.00)
[2022-01-13 18:30] LABS: Slide Review Reflex No
[2022-01-13] MEDS: ACETAMINOPHEN 500 MG TABLET 1000 MG PO (19:39)
--- NOTE | 2022-01-13 21:19 | PM.OBPRCVD ---
Procedure Delivery date: 01/13/22 Procedure Done: Global Procedure Details: 2 now para 2 mom delivered vaginally at 38 and 2 weeks gestation. Patient history is significant for gestational diabetes diet controlled and recent diagnosis of mild polyhydramnios. Patient's contractions started approximately 5:00 a.m. today January 13. Labor began at approximately 10:00 a.m. on January 13. She had spontaneous rupture of membranes at 2:26 p.m. with clear fluid. She had minimal change in her cervix from admission when she was 8 cm. Because baby was high opted to confirm vertex position by ultrasound. Vertex position was ballotable and rupture membranes was not deemed safe at that time. Slow change was made when patient was approximately 9 cm vertex position descended far enough to feel comfortable to place scalp electrode to have controlled rupture of for bag at 4:37 p.m. she started pushing at 4:51 p.m. and delivered a live-born male at 4:54 p.m. on January 13. Placenta was spontaneous and intact at 5:02 p.m.. Patient received rectal Cytotec after delivery of the placenta prophylactically. Partial second-degree vaginal laceration midline was repaired in usual fashion using 3-0 Vicryl. Normal anatomical restorationism was maintained. Cervix was cleared of clots. She experienced increased bleeding and Methergine was given followed by Hemabate eventually patient also received IV Pitocin followed by TXA. Bleeding was controlled. Patient had experienced increased uterine contractions and was given Toradol to help with pain control. Pitocin was not initially given after delivery due to Pitocin shortage and hospital plan for conservation and only using an emergent situations. OBGYN 1 was consulted prior to using Pitocin. Formal consult also was obtained. QBL was 700 though there were some pads that were not weighed and included in this amount. Events: Polyhydramnios and Other (gestational diabetes) Intrapartal Events: Excessive Bleeding ( ) Delivery augmentation: rupture of membranes (Forebag) Route of delivery: Episiotomy description: None Laceration description: Perineal - 2nd Degree (Partial second-degree) Delivery repair: Vicryl Estimated blood loss (mL): 700 Anesthesia type: None Infant Gender: Male presentation: vertex Placental Delivery Description: Spontaneous Cord Description: 3 Vessels
[2022-01-13] MEDS: LIDOCAINE 1% MDV 20 ML INJECTION (21:29)
[2022-01-13] MEDS: CARBOPROST TROMETHAMINE 250 MCG/ML INJ IM (21:46)
[2022-01-13] MEDS: IBUPROFEN 600 MG TABLET PO (21:55)
[2022-01-14] MEDS: ACETAMINOPHEN 500 MG TABLET 1000 MG PO ×2 (01:21→07:45)
[2022-01-14] MEDS: hydrOXYzine pamoate 25 MG CAPSULE 100 MG PO (02:49)
[2022-01-14 03:51] VITALS: BP 127/81; PULSE 90; RESP 16; TEMP 36.6; O2SAT 99
[2022-01-14] MEDS: IBUPROFEN 600 MG TABLET PO ×2 (03:54→12:17)
[2022-01-14 07:18] VITALS: BP 113/75; PULSE 84; RESP 16; TEMP 36.8; O2SAT 100
[2022-01-14 07:24] LABS: Hemoglobin* 8.7 gm/dL (12.0-16.0)
--- NOTE | 2022-01-14 10:33 | P.DS_ITS ---
DS: Providers Provider Time Seen by Provider: 07:30 Date Seen: 01/14/22 Date of admission: 01/13/22 10:52 Primary care physician: Juliet Farrell MD Admitting Clinician: Juliet Farrell MD Consults: 01/13/22 12:48 Consult to Film Processing Shift Supervisor [CONS] Routine Comment: Reason for Consult:: Substance Abuse Screening Attending Physician on discharge: Meli Yee Date of Discharge: 01/14/22 DS: Diagnosis Discharge Diagnosis (1) hemorrhage: Status: Acute Problem details: Patient had significant hemorrhage of >700 mls. (2) Vaginal delivery: Status: Acute (3) Gestational diabetes: Status: Acute Exam Const: Vital Signs, click to edit/add: Vital Signs - 24 hr 01/13/22 13:47 01/13/22 15:56 01/13/22 10:47 Temperature 98.3 F 98 F Pulse Rate Pulse Rate [Blood Pressure Cuff] Pulse Rate [Pulse Oximeter] Respiratory Rate 18 16 Blood Pressure 117/84 Blood Pressure [Ri ght Arm] Pulse Oximetry Oxygen Delivery Me thod 01/13/22 10:47 01/13/22 11:06 01/13/22 11:11 Temperature Pulse Rate 102 H Pulse Rate [Blood Pressure Cuff] Pulse Rate [Pulse Oximeter] Respiratory Rate Blood Pressure Blood Pressure [Ri ght Arm] Pulse Oximetry 98 98 Oxygen Delivery Me thod 01/13/22 11:16 01/13/22 11:21 01/13/22 11:26 Temperature Pulse Rate Pulse Rate [Blood Pressure Cuff] Pulse Rate [Pulse Oximeter] Respiratory Rate Blood Pressure Blood Pressure [Ri ght Arm] Pulse Oximetry 99 98 99 Oxygen Delivery Me thod 01/13/22 11:31 01/13/22 11:57 01/13/22 11:57 Temperature Pulse Rate 100 Pulse Rate [Blood Pressure Cuff] Pulse Rate [Pulse Oximeter] Respiratory Rate Blood Pressure 121/81 Blood Pressure [Ri ght Arm] Pulse Oximetry 99 Oxygen Delivery Me thod 01/13/22 12:53 01/13/22 12:53 01/13/22 13:19 Temperature Pulse Rate 100 Pulse Rate [Blood Pressure Cuff] Pulse Rate [Pulse Oximeter] Respiratory Rate Blood Pressure 123/79 Blood Pressure [Ri ght Arm] Pulse Oximetry 98 Oxygen Delivery Me thod 01/13/22 13:24 01/13/22 13:29 01/13/22 13:34 Temperature Pulse Rate Pulse Rate [Blood Pressure Cuff] Pulse Rate [Pulse Oximeter] Respiratory Rate Blood Pressure Blood Pressure [Ri ght Arm] Pulse Oximetry 99 98 98 Oxygen Delivery Me thod 01/13/22 13:39 01/13/22 13:44 01/13/22 13:46 Temperature Pulse Rate 96 Pulse Rate [Blood Pressure Cuff] Pulse Rate [Pulse Oximeter] Respiratory Rate Blood Pressure 130/73 Blood Pressure [Ri ght Arm] Pulse Oximetry 98 97 Oxygen Delivery Me thod 01/13/22 15:23 01/13/22 15:23 01/13/22 15:59 Temperature Pulse Rate 120 H Pulse Rate [Blood Pressure Cuff] Pulse Rate [Pulse Oximeter] Respiratory Rate Blood Pressure 119/59 L 131/83 Blood Pressure [Ri ght Arm] Pulse Oximetry Oxygen Delivery Me thod 01/13/22 15:59 01/13/22 16:29 01/13/22 17:07 Temperature Pulse Rate 99 Pulse Rate [Blood Pressure Cuff] Pulse Rate [Pulse Oximeter] Respiratory Rate Blood Pressure 135/68 Blood Pressure [Ri ght Arm] Pulse Oximetry 98 Oxygen Delivery Me thod 01/13/22 17:07 01/13/22 17:08 01/13/22 17:12 Temperature Pulse Rate 157 H 134 H Pulse Rate [Blood Pressure Cuff] Pulse Rate [Pulse Oximeter] Respiratory Rate Blood Pressure 141/85 H Blood Pressure [Ri ght Arm] Pulse Oximetry 98 Oxygen Delivery Me thod 01/13/22 17:13 01/13/22 17:18 01/13/22 17:23 Temperature Pulse Rate Pulse Rate [Blood Pressure Cuff] Pulse Rate [Pulse Oximeter] Respiratory Rate Blood Pressure Blood Pressure [Ri ght Arm] Pulse Oximetry 97 97 98 Oxygen Delivery Me thod 01/13/22 17:27 01/13/22 17:27 01/13/22 17:28 Temperature Pulse Rate 110 H Pulse Rate [Blood Pressure Cuff] Pulse Rate [Pulse Oximeter] Respiratory Rate Blood Pressure 143/83 H Blood Pressure [Ri ght Arm] Pulse Oximetry 99 Oxygen Delivery Me thod 01/13/22 17:33 01/13/22 17:38 01/13/22 17:42 Temperature Pulse Rate Pulse Rate [Blood Pressure Cuff] Pulse Rate [Pulse Oximeter] Respiratory Rate Blood Pressure 138/81 Blood Pressure [Ri ght Arm] Pulse Oximetry 98 99 Oxygen Delivery Me thod 01/13/22 17:42 01/13/22 17:43 01/13/22 17:48 Temperature Pulse Rate 100 Pulse Rate [Blood Pressure Cuff] Pulse Rate [Pulse Oximeter] Respiratory Rate Blood Pressure Blood Pressure [Ri ght Arm] Pulse Oximetry 98 97 Oxygen Delivery Me thod 01/13/22 17:53 01/13/22 17:54 01/13/22 17:57 Temperature Pulse Rate 101 H Pulse Rate [Blood Pressure Cuff] Pulse Rate [Pulse Oximeter] Respiratory Rate Blood Pressure 139/82 Blood Pressure [Ri ght Arm] Pulse Oximetry 100 94 Oxygen Delivery Me thod 01/13/22 17:58 01/13/22 18:03 01/13/22 18:08 Temperature Pulse Rate Pulse Rate [Blood Pressure Cuff] Pulse Rate [Pulse Oximeter] Respiratory Rate Blood Pressure Blood Pressure [Ri ght Arm] Pulse Oximetry 100 100 99 Oxygen Delivery Me thod 01/13/22 18:12 01/13/22 18:12 01/13/22 18:13 Temperature Pulse Rate 93 Pulse Rate [Blood Pressure Cuff] Pulse Rate [Pulse Oximeter] Respiratory Rate Blood Pressure 151/110 H Blood Pressure [Ri ght Arm] Pulse Oximetry 93 91 Oxygen Delivery Me thod 01/13/22 18:13 01/13/22 18:13 01/13/22 18:18 Temperature Pulse Rate 89 Pulse Rate [Blood Pressure Cuff] Pulse Rate [Pulse Oximeter] Respiratory Rate Blood Pressure 150/93 H Blood Pressure [Ri ght Arm] Pulse Oximetry 98 Oxygen Delivery Me thod 01/13/22 18:23 01/13/22 18:23 01/13/22 18:27 Temperature Pulse Rate 93 Pulse Rate [Blood Pressure Cuff] Pulse Rate [Pulse Oximeter] Respiratory Rate Blood Pressure 158/99 H Blood Pressure [Ri ght Arm] Pulse Oximetry 92 96 Oxygen Delivery Me thod 01/13/22 18:28 01/13/22 18:33 01/13/22 18:38 Temperature Pulse Rate Pulse Rate [Blood Pressure Cuff] Pulse Rate [Pulse Oximeter] Respiratory Rate Blood Pressure Blood Pressure [Ri ght Arm] Pulse Oximetry 97 96 97 Oxygen Delivery Me thod 01/13/22 18:43 01/13/22 18:43 01/13/22 18:43 Temperature Pulse Rate 95 Pulse Rate [Blood Pressure Cuff] Pulse Rate [Pulse Oximeter] Respiratory Rate Blood Pressure 150/97 H Blood Pressure [Ri ght Arm] Pulse Oximetry 96 Oxygen Delivery Me thod 01/13/22 18:48 01/13/22 19:49 01/13/22 19:49 Temperature Pulse Rate 101 H Pulse Rate [Blood Pressure Cuff] Pulse Rate [Pulse Oximeter] Respiratory Rate Blood Pressure 140/93 H Blood Pressure [Ri ght Arm] Pulse Oximetry 98 Oxygen Delivery Me thod 01/13/22 20:43 01/13/22 20:43 01/13/22 21:46 Temperature Pulse Rate 88 Pulse Rate [Blood Pressure Cuff] Pulse Rate [Pulse Oximeter] Respiratory Rate Blood Pressure 127/81 133/82 Blood Pressure [Ri ght Arm] Pulse Oximetry Oxygen Delivery Me thod 01/13/22 21:46 01/13/22 11:02 01/13/22 18:15 Temperature 98.3 F 97.9 F Pulse Rate 85 Pulse Rate [Blood Pressure Cuff] Pulse Rate [Pulse Oximeter] Respiratory Rate 16 Blood Pressure Blood Pressure [Ri ght Arm] Pulse Oximetry Oxygen Delivery Me thod 01/13/22 19:45 01/13/22 23:50 01/13/22 20:45 Temperature 98.2 F Pulse Rate Pulse Rate [Blood Pressure Cuff] 101 H 88 Pulse Rate [Pulse Oximeter] 93 Respiratory Rate 16 16 16 Blood Pressure Blood Pressure [Ri ght Arm] 140/93 H 130/77 127/81 Pulse Oximetry 96 Oxygen Delivery Me od Room Air 01/13/22 21:45 01/14/22 03:51 01/14/22 07:18 Temperature 97.8 F 98 F 98.3 F Pulse Rate Pulse Rate [Blood Pressure Cuff] 85 Pulse Rate [Pulse Oximeter] 90 84 Respiratory Rate 16 16 16 Blood Pressure Blood Pressure [Ri ght Arm] 133/82 127/81 113/75 Pulse Oximetry 99 100 Oxygen Delivery Me thod Room Air Room Air Common normals: no apparent distress General appearance: cooperative, comfortable, well kempt and well developed Orientation/consciousness: Yes awake, Yes oriented to person, Yes oriented to place and Yes oriented to time HENMT: Common normals: normocephalic Head and scalp: normocephalic Face and sinus: normal facial exam Eye: Common normals: EOMs intact bilaterally and conjunctivae normal Conjunctiva: conjunctiva(e) normal Neck & C-Spine: Common normals: full ROM Chest: Common normals: inspection of chest normal Resp: Common normals: normal respiratory effort and no retractions Cardio: Common normals: regular rate, regular rhythm and no murmurs Rate: regular rate Rhythm: regular rhythm GI: Common normals: Normal to inspection, nondistended, normoactive bowel sounds present (fundus at umbilicus ), soft to palpation and non-tender Palpation: soft Extremity: Common normals: normal to inspection and no pedal edema Neuro: Sensorium/orientation: awake, oriented to person, oriented to place and oriented to time Psych: Appearance: well kempt Skin: Common normals: no rashes or lesions noted General skin exam: no rashes or lesions noted OB - DS: Summary Hospital Course Hospital Course: The patient is a 26 year old G 2 P 2 at 38 weeks gestation that was admitted to the Center on 01/13/22 for active labor. She had an complicated vaginal delivery due to hemorrhage. Patient had QBL >700 mls. Patient received Cytotec, Hemabate, Methergine. Pitocin was delayed due to shortage at hospital. Pitocin was given and then bleeding improved. She has been stable since that time with minimal bleeding. She delivered a viable male infant. Unfortunately, baby was hypoxic, had poor tone and murmur and was transferred to [facility]. She is planning on breast feeding, has been pumping. the patient has done well. She is anxious to get to her baby at the NICU. Has been able to ambulate, has had minimal bleeding, no dizziness/shortness of breath. She has had stable vitals. Did have elevated BP immediately after delivery in setting of pain, anxiety regarding son's transfer. Blood pressures have improved. Patient has been stable for 24 hours and is re fabiola for discharge. Peripartum Data Infant delivery method: Vaginal complications: uterine at[place] Gender: Male Infant Discharge Plan: Home Time Spent with Patient Time attestation: Total time spent providing and/or coordinating discharge services: Time spent: Less than 30 minutes Discharge Plan Discharge Disposition: Home, Self-Care Date of Admission: 01/13/22 10:52 Attending Provider on Discharge: Meli Yee Primary Care Provider: Juliet Farrell Condition: Stable Anticipated Discharge Date/Time: 01/14/22 15:00 Discharge Medications: Continued olanzapine 5 mg tablet 5 mg PO PRN Label Comments: TAKE 1 TABLET BY MOUTH THREE TIMES DAILY NEEDED omeprazole 20 mg capsule,delayed release(DR/EC) 20 mg PO DAILY cholecalciferol (vitamin D3) [Vitamin D3] 125 mcg (5,000 unit) tablet 125 mcg PO DAILY Label Comments: TAKE 1 TABLET BY MOUTH DAILY WITH A FATTY FOOD ondansetron HCl 4 mg tablet 4 mg PO Q6H Qty: 20 0RF duloxetine 60 mg capsule,delayed release(DR/EC) 60 mg PO BID Label Comments: TAKE 1 CAPSULE BY MOUTH TWICE DAILY Discharge Orders: Discharge Order (Routine); Ordered 01/14/22 Ordered By: Meli Yee Patient Education: Hemorrhage (DC), OB Over the Counter Medication Information, OB Vaginal/Breast Feeding Activity Level: Activity as Tolerated Discharge Diet: Regular Diet Detail: high iron diet Follow Up Appointments: Juliet Farrell MD [Primary Care Provider] - (please schedule visit at 6 weeks , sooner with concerns. ) Forms: Symptify Info Instructions
[2022-01-14] MEDS: DOCUSATE SODIUM 100 MG CAPSULE PO (10:42)
[2022-01-14] MEDS: DULOXETINE 30 MG CAPSULE DR 60 MG PO (10:43)
[2022-01-14 11:58] VITALS: BP 112/71; PULSE 100; RESP 16; TEMP 37.1; O2SAT 99
[2022-01-14 14:57] VITALS: BP 113/74; PULSE 98; RESP 16; TEMP 36.6; O2SAT 98
[2022-01-14] MEDS: LANOLIN CREAM 1 APPLIC TOPICAL (15:31)
== END 2022-01-14 15:50 | disposition home or self-care (01) | DRG 560 ==
PROVIDERS: Admitting Provider Family Medicine; PCP Family Medicine; Visit Provider Family Medicine
DX: O24.420 Gestational diabetes mellitus in childbirth, diet controlled (principal); O40.3XX0 Polyhydramnios, third trimester, not applicable or unspecified; O70.1 Second degree perineal laceration during delivery; O72.1 Other immediate postpartum hemorrhage; Z37.0 Single live birth; Z3A.38 38 weeks gestation of pregnancy
CPT/HCPCS: 36415; 80306; 82947; 85018; 85025; 86850; 86900; 86901; 87635; 99213; A9270; J1885; J2210; J2405; J3010; J7120

== ENCOUNTER 2023-05-14 11:58 | Emergency (ER) | payer BC, SELFPAY ==
[2023-05-14 12:05] VITALS: BP 101/65; PULSE 96; RESP 18; TEMP 36; O2SAT 95; BMI 26.1
--- NOTE | 2023-05-14 12:53 | ED.NAVMDI ---
HPI - Nausea/Vomiting/Diarrhea General Time Seen by Provider: 12:53 Date Seen: 05/14/23 Chief complaint: Nausea/Vomiting Stated complaint: Vomiting / Diarrhea Time Seen by Provider: 05/14/23 12:52 History of Present Illness HPI Narrative: This 27-year-old female that is about 29 weeks is coming in with illness symptoms with nausea vomiting diarrhea. She is being seen with her 2 children her also having nausea vomiting and diarrhea. She states they have been sick since last Sunday, today is Sunday. She was ill for about 6 days, felt a little better but then is worse again today. She states she just really can not keep anything down. She is wondering if she is dehydrated. She vomited at 11:00 a.m. this morning, had vomited 4 times prior. She has had 2 episodes of nonbloody diarrhea. She has a toast waffles, Pedialyte and water, crackers. She last took her medication that she has for nausea at home yesterday but it makes her feel sick if it is on an empty stomach. She is feeling the baby move, she has no contractions symptoms, no labor symptoms, no urinary symptoms. There has been no travel, no known definite ill contacts. No one has had any fevers with this. MD elicited complaint: nausea, vomiting and diarrhea Related Data Home Medications Medication Instructions Recorded Confirmed 11/07/21 cholecalciferol (vitamin D3) 125 125 mcg PO DAILY 11/07/21 01/13/22 mcg (5,000 unit) tablet (Vitamin D3) olanzapine 5 mg tablet 5 mg PO PRN 11/07/21 01/13/22 omeprazole 20 mg capsule,delayed 20 mg PO DAILY 11/07/21 01/13/22 release duloxetine 60 mg capsule,delayed 60 mg PO BID 12/09/21 05/14/23 release aspirin 81 mg tablet,delayed mg PO 05/14/23 release magnesium oxide 400 mg (241.3 mg 400 mg PO DAILY 05/14/23 05/14/23 magnesium) tablet Previous Rx's Medication Instructions Recorded ondansetron HCl 4 mg tablet 4 mg PO Q6H #20 tabs 11/07/21 Allergies Allergy/AdvReac Type Severity Reaction Status Date / Time amoxicillin Allergy Unknown Verified 12/09/21 21:10 Review of Systems Status of ROS: Reports: 6 or more systems reviewed and unremarkable except as noted in History and below [facility] Medical History Gestational diabetes ?O24.419 - Gestational diabetes mellitus in , unspecified control (ICD-10) ?Z34.90 - Encounter for supervision of normal , unspecified, unspecified trimester (ICD-10) GERD (gastroesophageal reflux disease) ?K21.9 - Gastro-esophageal reflux disease without esophagitis (ICD-10) Second ?Z34.90 - Encounter for supervision of normal , unspecified, unspecified trimester (ICD-10) Anemia ?D64.9 - Anemia, unspecified (ICD-10) Social History Smoking Status: Former smoker Do you use any of these nicotine containing products: None Second hand tobacco smoke exposure: No How often do you have a drink containing alcohol: never AUDIT-C Alcohol total score: 0 Non-prescribed substance use: denies use service: No Exam Const: Vital Signs, click to edit/add: Vital Signs - 24 hr 05/14/23 12:05 Temperature 96.8 F L Pulse Rate [Pulse Oximeter] 96 Respiratory Rate 18 Blood Pressure [Ri ght Upper Arm] 101/65 Pulse Oximetry 95 Oxygen Delivery Me thod Room Air This 27-year-old female is lying on the bed on her left side, her 2 children underlying with her. Sclera clear, conjugate gaze, pupils are equal and round. Oropharynx with well hydrated oral mucosa some. She is able to speak in complete sentences. Neck is supple. Lungs are clear, good air entry, no wheezing or crackles. CV regular rate and rhythm, no murmur. Abdomen is gravid but soft, nontender. Patient was ambulatory into the ED of her own accord. Dap tones were done later, heart tones were in the 130s. Documenting provider has reviewed patient's vital signs: yes Course Vital Signs Vital signs: Initial Vital Signs Temperature 96.8 F L 05/14/23 12:05 Temperature Source Temporal Artery Scan 05/14/23 12:05 Pulse Rate 96 05/14/23 12:05 Respiratory Rate 18 05/14/23 12:05 Blood Pressure 101/65 05/14/23 12:05 Blood Pressure Mean 77 05/14/23 12:05 Blood Pressure Position Sitting 05/14/23 12:05 Pulse Oximetry 95 05/14/23 12:05 Oxygen Delivery Method Room Air 05/14/23 12:05 Vital Signs Temperature 96.8 F L 05/14/23 12:05 Pulse Rate 96 05/14/23 12:05 Respiratory Rate 18 05/14/23 12:05 Blood Pressure 101/65 05/14/23 12:05 Pulse Oximetry 95 05/14/23 12:05 Oxygen Delivery Method Room Air 05/14/23 12:05 Temperature 96.8 F L 05/14/23 12:05 Pulse Rate 96 05/14/23 12:05 Respiratory Rate 18 05/14/23 12:05 Blood Pressure 101/65 05/14/23 12:05 Pulse Oximetry 95 05/14/23 12:05 Oxygen Delivery Method Room Air 05/14/23 12:05 Medications Administered Medications: Discontinued Medications Generic Name Dose Route Start Last Admin Trade Name Freq PRN Reason Stop Dose Admin Sodium Chloride 1,000 mls @ 1,000 mls/hr 05/14/23 13:25 05/14/23 17:05 0.9 % Sodium Chloride 1000 Ml IV 05/14/23 14:24 Infused .Q1H LOLI Infusion Ondansetron HCl 4 mg 05/14/23 13:25 05/14/23 14:37 Ondansetron 2 Mg/Ml Inj IVP 05/14/23 13:26 4 mg ONCE ONE Administration MDM - Nausea/Vomiting/Diarrhea Lab Data Attestation: I reviewed the patient's lab results. Labs: Lab Results 05/14/23 05/14/23 Range/Units 13:54 14:32 WBC 9.30 (4.50-11.00) K/uL RBC 3.83 L (4.00-5.20) m/uL Hgb 11.6 L (12.0-16.0) gm/dL Hct 33.0 (33.0-51.0) % MCV 86 (80-100) fL MCH 30 (26-34) pg MCHC 35 (32-36) gm/dL RDW Coeff of Ana M 12.4 (11.5-15.5) % Plt Count 248 (140-440) K/uL Neut % (Auto) 79.7 H (42.0-72.0) % Lymph % (Auto) 12.7 L (20-44) % Treasure % (Auto) 5.8 (0.0-11.0) % Eos % (Auto) 1.2 (0.0-7.0) % Baso % (Auto) 0.2 (0.0-3.0) % Neut # (Auto) 7.40 H (1.7-7.0) K/uL Lymph # (Auto) 1.20 (0.90-2.90) K/uL Treasure # (Auto) 0.50 (0.00-0.90) K/UL Eos # (Auto) 0.11 (0.00-0.50) K/uL Baso # (Auto) 0.02 (0.00-0.30) K/uL Abs Immat Gran (auto) 0.04 (0.00-0.30) K/uL Imm/Tot Granulo (auto) 0.4 % Sodium 134 L (135-149) mmol/L Potassium 4.6 (3.6-5.1) mmol/L Chloride 106 (96-114) mmol/L Carbon Dioxide 20 (20-32) mmol/L Anion Gap 8 (7-15) mEq/L BUN 6 (5-24) mg/dL Creatinine 0.3 L (0.5-1.5) mg/dL Estimated Creat Clear 243.24 Estimated GFR 149 ml/min Glucose 85 (60-115) mg/dL Lactate 0.7 (0.5-1.9) mmol/L Calcium 8.3 L (8.4-10.6) mg/dL Total Bilirubin 0.6 (0.1-1.5) mg/dL AST 30 (12-35) U/L ALT 15 (4-35) U/L Alkaline Phosphatase 80 (40-150) U/L Total Protein 6.2 (6.0-8.3) g/dL Albumin 3.4 (3.3-5.0) g/dL SARS-CoV-2 (PCR) Negative SARS-CoV-2 (Negative) Influenza Type A (PCR) Negative PCR FLU A (Negative) Influenza Type B (PCR) Negative PCR FLU B (Negative) RSV (PCR) Negative PCR RSV (Negative) Discharge Plan Discharge Clinical Impression: Gastroenteritis Patient Disposition: Home, Self-Care Condition: Stable Instructions: Gastroenteritis (ED), Nutrition Tips for Relief of Diarrhea (ED) Additional Instructions: If the diarrhea is not settling down in the next few days, all of you should consider collecting stool studies; these can be obtained through your primary care provider in clinic. Can use your anti nausea medicine at home as needed. Try to drink small amounts of fluids frequently to help stay hydrated. Activity Level: Activity as Tolerated Discharge Diet: Regular Prescriptions: No Action olanzapine 5 mg tablet 5 mg PO PRN Patient Comments: TAKE 1 TABLET BY MOUTH THREE TIMES DAILY NEEDED omeprazole 20 mg capsule,delayed release(DR/EC) 20 mg PO DAILY cholecalciferol (vitamin D3) [Vitamin D3] 125 mcg (5,000 unit) tablet 125 mcg PO DAILY Patient Comments: TAKE 1 TABLET BY MOUTH DAILY WITH A FATTY FOOD ondansetron HCl 4 mg tablet 4 mg PO Q6H Qty: 20 0RF duloxetine 60 mg capsule,delayed release(DR/EC) 60 mg PO BID Patient Comments: TAKE 1 CAPSULE BY MOUTH TWICE DAILY aspirin 81 mg tablet,delayed release (DR/EC) PO magnesium oxide 400 mg (241.3 mg magnesium) tablet 400 mg PO DAILY Follow Up/Referrals: Juliet Farrell MD [Primary Care Provider] - Stand Alone Forms: [employer] Info Instructions
--- OUTSIDE RECORDS SUMMARY | 2023-05-14 13:42 | XMS_ITS | Referral Summary ---
Author Name Unknown Organization [facility] Address [address] [place] [address]. [place] [address] Care Team Providers Care Filler Picker Name Role Phone [facility], [facility] Primary Care Provider Allergies Active Allergy Reactions Criticality Noted Date Comments Amoxicillin 09/30/2002 mother and brothers allergic to Medications Medication Sig Dispensed Refills Start Date End Date Status albuterol (PROVENTIL HFA: VENTOLIN HFA) 108 (90 BASE) MCG/ACT inhalerIndications:I ntermittent asthma Inhale 2 puffs into the lungs every 4 hours as needed. 1 Inhaler 0 03/12/2012 Active OLANZapine (ZYPREXA) 5 MG tablet Take 5 mg by mouth daily as needed 0 Active norethindrone-ethiny l estradiol (MICROGESTIN 1.5/30) 1.5-30 MG-MCG tablet Take 1 tablet by mouth daily 0 Active DULoxetine (CYMBALTA) 30 MG capsuleIndications:[place]ipe s[place] depressive disorder, recurrent episode, moderate (H),Adjustment disorder with mixed disturbance of emotions and conduct Take 3 capsules (90 mg) by mouth daily 90 capsule 0 11/05/2020 Active ARIPiprazole (ABILIFY) 10 MG tabletIndications:Cassandra palma depressive disorder, recurrent episode, moderate (H),Alcohol abuse Take 1 tablet (10 mg) by mouth daily 30 tablet 0 11/05/2020 Active gabapentin (NEURONTIN) 400 MG capsuleIndications:Pipe soto depressive disorder, recurrent episode, moderate (H) Take 1 capsule (400 mg) by mouth 3 times daily 90 capsule 0 11/04/2020 Active naltrexone (DEPADE/REVIA) 50 MG tabletIndications:Cassandra palma depressive disorder, recurrent episode, moderate (H),Alcohol abuse,Cannabis abuse Take 1 tablet (50 mg) by mouth daily 30 tablet 0 11/05/2020 Active prazosin (MINIPRESS) 2 MG capsuleIndications:P osttraumatic stress disorder Take 2 capsules (4 mg) by mouth At Bedtime 60 capsule 0 11/04/2020 Active Active Problems Problem Noted Date Diagnosed Date Alcohol abuse 11/01/2020 Adjustment disorder with mix ed disturbance of emotions and conduct 11/01/2020 Cannabis abuse 11/01/2020 Major depressive disorder, recurrent episode, mo derate 10/31/2020 Nicotine use disorder 02/18/2018 Recurrent major depressive disorder, in remissio n (H24) 02/18/2018 Posttraumatic stress disorder 02/18/2018 Depression 03/03/2012 Resolved Problems Problem Noted Date Diagnosed Date Resolved Date Suicide ideation 02/15/2018 11/03/2020 Immunizations Name Administration Dates Next Due DT (PEDS <7y) 11/24/1996 DTAP (<7y) 07/30/2000 DTP-Hib 01/15/1996 HIB (PRP-T) 11/24/1996 HepB 07/02/1998,1995 MMR 07/30/2000,11/24/1996 OPV, trivalent, live 11/24/1996,01/15/1996 Poliovirus, inactivated (IPV) 07/30/2000 Social History Tobacco Use Types Packs/Day Years Used Date Smoking Tobacco: Passive Smo ke Exposure - Never Smoker Alcohol Use Standard Drinks/Week Comments Yes 0 (1 standard drink = 0.6 oz pur e alcohol) last used 62 days ago Adolescent Education Answer Date Record ed Getting School Help Needed Not on file 01/07 Sex and Gender Information Value Date Recorded Sex Assigned at Not on file Gender Identity Not on file Sexual Orientation Not on file Last Filed Vital Signs Vital Sign Reading Time Taken Comments Blood Pressure 126/66 11/04/2020 8:00 AM CDT Pulse 102 11/04/2020 8:00 AM CDT Temperature 36.6 ??C (97.9 ??F) 11/04/2020 8:00 AM CD T Respiratory Rate 16 11/04/2020 8:00 AM CDT Oxygen Saturation 95% 11/04/2020 8:00 AM CDT Inhaled Oxygen Concentration - - Weight 68.9 kg (151 lb 14.4 oz) 10/31/2020 6:14 PM CDT Height 162.6 cm (5' 4) 10/31/2020 6:14 PM CDT Body Mass Index 26.07 10/31/2020 6:14 PM CDT Plan of Treatment Not on file Advance Directives For more information, please contact: [phone] Latest Code Status on File Code Status Date Activated Date Inactivated Comments Full Code 10/31/2020 6:58 PM 11/04/2020 2:29 PM All bas ic and advanced life-sustaining interventions are performed as appropriate Question Answer Comments Code status determined by: Unable to discuss and no AD/POLST on file; continue PREVIOUSLY ORDERED code status Code Status History Code Status Date Activated Date Inactivated Comments Full Code 02/15/2018 10:46 PM 02/19/2018 3:32 PM Question Answer Comments Code status determined by: Discussion wi th patient/legal decision maker Full Code 03/03/2012 11:30 PM 03/13/2012 11:27 AM Care Teams Filler Picker Relationship Specialty Start Date End Date [facility], [address] [id number] PCP - General 02/25/12
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
--- OUTSIDE RECORDS SUMMARY | 2023-05-14 13:42 | XMS_ITS | Clinical Summary ---
Author Name Unknown Organization [place] Address [address] [place] [address]. [place] [address] Care Team Providers Care Excavator Operator Name Role Phone [facility], [facility] Primary Care Provider Allergies Active Allergy Reactions [...] trivalent, live 11/24/1996,01/15/1996 Poliovirus, inactivated (IPV) 07/30/2000 Family History Medical History Relation Comments Cancer Cousin Orosco sarcoma Heart Failure Maternal Grandmother Brain Cancer Maternal Uncle Breast Cancer Other Leukemia Paternal Grandmother Relation Status Comments Cousin Maternal Grandmother Maternal Uncle Other Paternal Grandmother Social History Tobacco Use Types Packs/Day Years [...] 10/31/2020 6:14 PM CDT Plan of Treatment Health Maintenance Due Date Last Done Comments ANNUAL REVIEW OF HM ORDERS 1995 DEPRESSION ACTION PLAN 1995 PHQ-9 1995 YEARLY PREVENTIVE VISIT 1995 COVID-19 Vaccine (#1) 1995 HEPATITIS B IMMUNIZATION (3 of 3 - 3-dose series) 08/27/1998 07/02/1998, 1995, 1995 HIV SCREENING 06/28/2010 HEPATITIS C SCREENING 06/28/2013 PAP 06/28/2016 INFLUENZA VACCINE (#1) 2022 8, 01/31/2017, 01/31/2017, Additional history exists ADVANCE CARE PLANNING 11/01/2025 11/01/2020 DTAP/TDAP/TD IMMUNIZATION (6 - Td or Tdap) 10/01/2028 10/01/2018, 09/01/2013, 01/09/2007, Additional history exists IPV IMMUNIZATION Completed 07/30/2000, , 01/15/1996 HPV IMMUNIZATION Completed 03/23/2011, 10/2010, 01/14/2010 MENINGITIS IMMUNIZATION Completed 01/17/2013, 11/07 Pneumococcal Vaccine: Pediatrics (0 to 5 Years) and At-Risk Patients (6 to 64 Years) Aged Out No longer eligible based on patient's age to complete this topic RSV MONOCLONAL ANTIBODY Aged Out No l onger eligible based on patient's age to complete this topic Advance Directives For more information, please contact: [phone] Latest Code Status on File Code Status [...] 11:30 PM 03/13/2012 11:27 AM Care Teams Excavator Operator Relationship Specialty Start Date End Date [facility], Nilsa Rogers [address] [place] [id number] PCP - General 02/25/12
--- OUTSIDE RECORDS SUMMARY | 2023-05-14 13:42 | XMS_ITS | Encounter Summary ---
Author Name Unknown Organization [facility] Address [address] [place] [address]. [place] [address] Care Team Providers Care President [employer] Name Role Phone Clinic, [facility] Primary Care Provider Reason for Visit * Reason Onset Date Comments MH/CD Inpatient 02/15/2018 Encounter Details Date Type Department Care Team ([facility] st Contact Info) Description 02/15/2018 Telephone [facility] Behavioral Health Intake [address] [place] [phone] Generic, Behavioral Intake, MH/CD Inpatient Social History Tobacco Use Types Packs/Day Years [...] encounter Miscellaneous Notes * Telephone Encounter - ReeceRai shay Timothy - 02/15/2018 5:11 PM TRUCK SERVICE MANAGER S: DEC called to place a 22 y/o female for inpatient mental health treatment. B: Pt was BIB EMS to the ED after she expressed SI in a session with her therapist today. Pt had also left voicemails for her therapist yesterday evening expressing feeling hopeless and having increased depression and anxiety. Pt has a hx of depression, anxiety, PTSD, and drug abuse issues. Pt was hospitalized and in residential dual diagnosis treatment for a year at [facility] 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 Pt had made multiple suicide attempts while in the program and was sent to the hospital for ingestingseveral pills. UDS is positive for cannabinoids. Pt reports her last use of cannabis and alcohol was last week. Pt has been medically cleared in the ED. A: Voluntary. R: 4A/Dongre. call circuit worker paged at 1808. call circuit worker approved admission at 1810. Unit notified at 1814. ED notified at 1825. K SERVICE MANAGER documented in this encounter Plan of Treatment Not on file documented as of this encounter Visit Diagnoses Not on filedocumented in this encounter Care Teams President [employer] Bank Relationship Specialty Start Date End Date [facility], Nilsa [address] [address] PCP - General 02/25/12 documented as of this encounter
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
--- OUTSIDE RECORDS SUMMARY | 2023-05-14 13:43 | XMS_ITS | Clinical Summary ---
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 Interpretation: Screen Negative This result is screen negative for OSB. The AFP MoM calculated is based on the gestational age provided. MS-AFP can identify up to 80% of open neural tube defects. Closed neural tube defects and some open defects may not be detected by this test. This test does not screen for Down Syndrome or Trisomy 18. If screening for Down Syndrome or Trisomy 18 is desired, contact [employer] to discuss available options. ??The [employer] recommends amniocentesis be offered to women age 35 and older. Comment AFP Comment 02/24/2023 10:[address] [facility] ([facility]) Comment: Megan Shafer, Ph.D., [facility] Director References: Available Upon Request. Multiples Of Median Cutoffs ?For AFP Elevations Toney ?? 2.5 ? Black ?2.8 IDD ? 2.0 ? Twins ?4.5 ?Abbreviation Definitions IDD - Insulin Dep Diabetes OSBR - Open Spina Bifida Risk For further inquiries contact [employer] at [phone]. This test was developed and its performance characteristics determined by [employer]. It has not been cleared or approved by the Food and Drug Administration. Blood BLOOD SPECIMEN / Unknown Venipuncture / Unknown 02/21/2023 5:05 PM SENIOR UX DESIGNER 02/21/2023 5:05 PM SENIOR UX DESIGNER Narrative [facility] - 02/24/2023 10:06 PM SENIOR UX DESIGNER Performed at: ??01 - [facility] [address] [place], [place] ??[id number] Small Equipment Operator: Marietta Renee [facility], Phone: ??[phone] Shelby Rm DO SEND OUTS [facility] ([facility]) [address] [place] [address], from Last 3 Months Advance Directives Latest Code Status on File Code Status Date Activated Date Inactivated Comments Full Code 01/27/2022 12:29 PM 01/28/2022 5:09 PM Question Answer Comments Code Status Discussion: Not Discussed Code Status History Code Status Date Activated Date Inactivated Comments Full Code 01/19/2022 9:56 PM 01/27/2022 12:12 PM Question Answer Comments Code Status Discussion: Reviewed Preferences Full Code 07/06/2011 4:00 PM 07/14/2011 5:31 PM Care Teams Information Technology Manager Relationship Specialty Start Date End Date Juliet Farrell MD [address] [place] [address] PCP - General Family Practice 06/17/18 Malena Kenney MD [address] [place] [address] Psychiatry 01/20/22 Shelby Rm DO [address] [place] [address] Referring Provider Family Practice 01/26/23 Sosa Suarez MD [address] [place] [address] Psychiatry 04/04/23 Godfrey Neil MD [address] [address] Neurology Neurology 05/04/23
[2023-05-14 14:06] LABS: Lactate* 0.7 mmol/L (0.5-1.9)
[2023-05-14 14:36] LABS: Basophils Absolute Auto 0.02 K/uL (0.00-0.30); Basophils Percent Auto 0.2 % (0.0-3.0); Eosinophils Absolute Auto 0.11 K/uL (0.00-0.50); Eosinophils Percent Auto 1.2 % (0.0-7.0); Hemoglobin* 11.6 gm/dL (12.0-16.0); Immature Granulocytes Abs Auto 0.04 K/uL (0.00-0.30); Immature Granulocytes Pct Auto 0.4 %; Lymphocytes Percent Auto 12.7 % (20-44); Mean Corpuscular HGB Conc 35 gm/dL (32-36); Mean Corpuscular Hemoglobin 30 pg (26-34); Mean Corpuscular Volume 86 fL (80-100); Monocytes Percent Auto 5.8 % (0.0-11.0); Neutrophils Percent Auto 79.7 % (42.0-72.0); Platelet Count* 248 K/uL (140-440); RDW Coefficient of Variation % 12.4 % (11.5-15.5); Red Blood Count 3.83 m/uL (4.00-5.20)
[2023-05-14] MEDS: ONDANSETRON 2 MG/ML inj 4 MG IVP (14:37)
[2023-05-14] MEDS: 0.9 % SODIUM CHLORIDE 1000 ml 1,000 ML IV (14:37)
[2023-05-14 14:58] LABS: Slide Review Reflex No
--- NOTE | 2023-05-14 15:14 | PC.NURSE ---
Heart tones at 132 via Doppler performed by
[2023-05-14 15:38] LABS: PCR FLU A Negative PCR FLU A (Negative); PCR FLU B Negative PCR FLU B (Negative); PCR RSV Negative PCR RSV (Negative); SARS PCR* Negative SARS-CoV-2 (Negative)
[2023-05-14 17:12] LABS: Chloride* 106 mmol/L (96-114)
[2023-05-14 17:13] LABS: Albumin* 3.4 g/dL (3.3-5.0); Potassium* 4.6 mmol/L (3.6-5.1); Sodium* 134 mmol/L (135-149)
[2023-05-14 17:15] LABS: Anion Gap 8 mEq/L (7-15); Aspartate Amino Transferase* 30 U/L (12-35); Bilirubin Total* 0.6 mg/dL (0.1-1.5); Carbon Dioxide* 20 mmol/L (20-32); Creatinine* 0.3 mg/dL (0.5-1.5); Est. Creatinine Clearance* 243.24; Estimated Glomerular Filt Rate 149 ml/min; Total Protein* 6.2 g/dL (6.0-8.3)
[2023-05-14 17:16] LABS: Alanine Aminotransferase* 15 U/L (4-35); Alkaline Phosphatase* 80 U/L (40-150); Blood Urea Nitrogen* 6 mg/dL (5-24); Calcium* 8.3 mg/dL (8.4-10.6); Glucose* 85 mg/dL (60-115)
== END 2023-05-14 20:20 | disposition home or self-care (01) ==
PROVIDERS: Emergency Provider Family Medicine; PCP Family Medicine
DX: K52.9 Noninfective gastroenteritis and colitis, unspecified (principal)
CPT/HCPCS: 36415; 80053; 83605; 85025; 87631; 96361; 96374; 99284; J2405; J7030

== ENCOUNTER 2023-07-17 14:39 | Outpatient (CLI) | payer BC, SELFPAY ==
--- OUTSIDE RECORDS SUMMARY | 2023-07-28 06:18 | XMS_ITS | Encounter Summary ---
Author Name Unknown Organization [place] Address [address] [place] [address]. [place] [address] Care Team Providers Care Nickel Plant Operator Name Role Phone Clinic, [facility] Primary Care Provider Encounter Details Date Type Department Care Team ([facility] Contact Info) Description 03/03/2012 Telephone [facility] Behavioral Health Intake [address] [place] [phone] Generic, Behavioral Intake, Social History Tobacco Use [...] PM CST Pt is being transported from [facility] via police. Dr Law is calling. Pt [...] the wall today. B: Pt was at [facility] for 28 days then dc'd to [facility] for 4 weeks. Hx etoh and depression. Pt has run x 5 from [facility] and makes suicidal statements. A: Er doctor talked to mom. Mom is okay with her coming in. Pt is cooperative. Mom's cell is [phone], her name is oHa. She is expecting a call from the unit [employer]. R: Dr Hicks CAP LOADER documented in this encounter Plan of Treatment Not on file documented as of this encounter Visit Diagnoses Not on filedocumented in this encounter Care Teams Nickel Plant Operator Relationship Specialty Start Date End Date [facility], [place] [id number] PCP - General 02/25/12 documented as of this encounter
--- OUTSIDE RECORDS SUMMARY | 2023-07-28 06:18 | XMS_ITS | Encounter Summary ---
Author Name Unknown Organization [place] Address [address] [place] [address]. [place] [address] Care Team Providers Care Professor Of Biostatistics Name Role Phone Clinic, [facility] Primary Care Provider Reason for Visit * Reason Onset Date Comments MH/CD Inpatient 02/15/2018 Encounter Details Date Type Department Care Team ([facility] st Contact Info) Description 02/15/2018 Telephone [facility] Behavioral Health Intake [address] [place] [phone] Generic, Behavioral Intake, MH/CD Inpatient Social History [...] ReeceRai shay Timothy - 02/15/2018 5:11 PM LEATHER POLISHER S: DEC called to place a 22 [...] dual diagnosis treatment for a year at [facility] 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 Pt had made multiple suicide attempts while in the program and was sent to the hospital for ingestingseveral pills. UDS is positive for cannabinoids. Pt reports her last use of cannabis and alcohol was last week. Pt has been medically cleared in the ED. A: Voluntary. R: 4A/Dongre. train caller paged at 1808. train caller approved admission at 1810. Unit notified at 1814. ED notified at 1825. HER POLISHER documented in this encounter Plan of Treatment Not on file documented as of this encounter Visit Diagnoses Not on filedocumented in this encounter Care Teams Professor Of Biostatistics Relationship Specialty Start Date End Date [facility], Nilsa Diaz[address] [address] PCP - General 02/25/12 documented as of this encounter
--- OUTSIDE RECORDS SUMMARY | 2023-07-28 06:18 | XMS_ITS | Referral Summary ---
Author Name Unknown Organization [place] Address [address] [place] [address]. [place] [address] Care Team Providers Care Mill Tender Warm Up Name Role Phone Clinic, [facility] Primary Care Provider Allergies Active Allergy Reactions [...] Advance Directives For more information, please contact: [phone] * Full Code (Latest Code Status on [...] 11:30 PM 03/13/2012 11:27 AM Care Teams Mill Tender Warm Up Relationship Specialty Start Date End Date [facility] [address] PCP - General 02/25/12
--- OUTSIDE RECORDS SUMMARY | 2023-07-28 06:18 | XMS_ITS | Clinical Summary ---
Author Name Unknown Organization [place] Address [address] [place] [address]. [place] [address] Care Team Providers Care Clinical Dietician Name Role Phone Clinic, [facility] Primary Care Provider Allergies Active Allergy [...] Advance Directives For more information, please contact: [phone] * Full Code (Latest Code Status on [...] 11:30 PM 03/13/2012 11:27 AM Care Teams Clinical Dietician Relationship Specialty Start Date End Date [facility], Nilsa Diaz[address] [address] PCP - General 02/25/12
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
== END 2023-07-17 14:40 | disposition home or self-care (01) ==
LOC: AMB 07-28 06:15
PROVIDERS: PCP Family Medicine; Visit Provider Family Medicine
DX: O60.03 Preterm labor without delivery, third trimester (principal); Z3A.38 38 weeks gestation of pregnancy
CPT/HCPCS: A0425; A0427

== ENCOUNTER 2023-07-17 14:59 | Outpatient (CLI) | payer BC, SELFPAY ==
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
--- OUTSIDE RECORDS SUMMARY | 2023-07-17 15:02 | XMS_ITS | Clinical Summary ---
Author Name Unknown Organization [place] Address [address] [place] [address]. [place] [address] Care Team Providers Care Best Worker Name Role Phone Clinic, [facility] Primary Care Provider Allergies Active Allergy [...] 5 mg by mouth daily as needed Active norethindrone-ethiny l estradiol (MICROGESTIN 1.5/30) 1.5-30 MG-MCG tablet Take 1 tablet by mouth daily Active DULoxetine (CYMBALTA) 30 MG capsuleIndications:Pipe soto depressive disorder, recurrent episode, moderate (H),Adjustment disorder with mixed disturbance of emotions and conduct Take 3 capsules (90 mg) by mouth daily 90 capsule 11/05/2020 Active ARIPiprazole (ABILIFY) 10 MG tabletIndications:Cassandra palma depressive disorder, recurrent episode, moderate (H),Alcohol abuse Take 1 tablet (10 mg) by mouth daily 30 tablet 11/05/2020 Active gabapentin (NEURONTIN) 400 MG capsuleIndications:Pipe soto depressive disorder, recurrent episode, moderate (H) Take 1 capsule (400 mg) by mouth 3 times daily 90 capsule 11/04/2020 Active naltrexone (DEPADE/REVIA) 50 MG tabletIndications:Ma minerva depressive disorder, recurrent episode, moderate (H),Alcohol abuse,Cannabis abuse Take 1 tablet (50 mg) by mouth daily 30 tablet 11/05/2020 Active prazosin (MINIPRESS) 2 MG capsuleIndications:P osttraumatic stress disorder Take 2 capsules (4 mg) by mouth At Bedtime 60 capsule 11/04/2020 Active Active Problems Problem Noted Date [...] 1995 PHQ-9 1995 YEARLY PREVENTIVE VISIT 1995 HEPATITIS B IMMUNIZATION (3 of 3 - 3-dose series) 08/27/1998 07/02/1998, 1995, 1995 HIV SCREENING 06/28/2010 HEPATITIS C SCREENING 06/28/2013 PAP 06/28/2016 COVID-19 Vaccine ( season) 2022 INFLUENZA VACCINE (#1) 2022 8, 01/31/2017, 01/31/2017, [...] Advance Directives For more information, please contact: [phone] * Full Code (Latest Code Status on File) Date Activated Date Inactivated Comments 10/31/2020 6:58 PM 11/04/2020 2:29 PM All basic and advanced life-sustaining interventions are performed as appropriate Question Answer Comments Code status determined by: Unable to dis cuss and no AD/POLST on file; continue PREVIOUSLY ORDERED code status * Full Code Date Activated Date Inactivated Comments 02/15/2018 10:46 PM 02/19/2018 3:32 PM Question Answer Comments Code status determined by: Discussion with raj nt/legal decision maker * Full Code Date Activated Date Inactivated Comments 03/03/2012 11:30 PM 03/13/2012 11:27 AM Care Teams Best Worker Relationship Specialty Start Date End Date [facility], Nilsa [address] [address] PCP - General 02/25/12
--- OUTSIDE RECORDS SUMMARY | 2023-07-17 15:03 | XMS_ITS | Referral Summary ---
Author Name Unknown Organization [place] Address [address] [place] [address]. [place] [address] Care Team Providers Care Pumper Hand Name Role Phone Clinic, [facility] Primary Care Provider Allergies Active Allergy Reactions [...] 11/05/2020 Active ARIPiprazole (ABILIFY) 10 MG tabletIndications:Cassandra plama depressive disorder, recurrent episode, moderate (H),Alcohol abuse Take 1 tablet (10 mg) by mouth daily 30 tablet 11/05/2020 Active gabapentin (NEURONTIN) 400 MG capsuleIndications:Pipe soto depressive disorder, recurrent episode, moderate (H) Take 1 capsule (400 mg) by mouth 3 times daily 90 capsule 11/04/2020 Active naltrexone (DEPADE/REVIA) 50 MG tabletIndications:Cassandra [...] Advance Directives For more information, please contact: [phone] * Full Code (Latest Code Status on [...] 11:30 PM 03/13/2012 11:27 AM Care Teams Pumper Hand Relationship Specialty Start Date End [facility] [address] PCP - General 02/25/12
--- OUTSIDE RECORDS SUMMARY | 2023-07-17 15:03 | XMS_ITS | Encounter Summary ---
Author Name Unknown Organization [place] Address [address] [place] [address]. [place] [address] Care Team Providers Care Offshore Diver Name Role Phone Clinic, [facility] Primary Care Provider Encounter Details Date Type Department Care Team ([facility] Contact Info) Description 03/03/[address] [facility] Behavioral Health Intake [address] [place] [phone] Generic, Behavioral Intake, Social History Tobacco Use [...] PM CST Pt is being transported from [facility] via police. Dr Law is calling. Pt [...] the wall today. B: Pt was at [facility] for 28 days then dc'd to [facility] for 4 weeks. Hx etoh and depression. Pt has run x 5 from [facility] and makes suicidal statements. A: Er doctor talked to mom. Mom is okay with her coming in. Pt is cooperative. Mom's cell is [phone], her name is Hoa. She is expecting a call from the unit [employer]. R: Dr Hicks CAP SEALER documented in this encounter Plan of Treatment Not on file documented as of this encounter Visit Diagnoses Not on filedocumented in this encounter Care Teams Offshore Diver Relationship Specialty Start Date End Date [employer], [place] [id number] PCP - General 02/25/12 documented as of this encounter
--- OUTSIDE RECORDS SUMMARY | 2023-07-17 15:03 | XMS_ITS | Encounter Summary ---
Author Name Unknown Organization [place] Address [address] [place] [address]. [place] [address] Care Team Providers Care Manager Sharepoint Name Role Phone Clinic, [facility] Primary Care Provider Reason for Visit * Reason Onset Date Comments MH/CD Inpatient 02/15/2018 Encounter Details Date Type Department Care Team ([facility] st Contact Info) Description 02/15/[address] [facility] Behavioral Health Intake [address] [place] [phone] Generic, Behavioral Intake, MH/CD Inpatient Social History [...] Miscellaneous Notes * Telephone Encounter - ReeceRai - 02/15/2018 5:11 PM SHOW HOST OR HOSTESS S: DEC called to place a 22 [...] dual diagnosis treatment for a year at [facility] 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 Pt had made multiple suicide attempts while in the program and was sent to the hospital for ingestingseveral pills. UDS is positive for cannabinoids. Pt reports her last use of cannabis and alcohol was last week. Pt has been medically cleared in the ED. A: Voluntary. R: 4A/Dongre. call center agent paged at 1808. call center agent approved admission at 1810. Unit notified at 1814. ED notified at 1825. HOST OR HOSTESS documented in this encounter Plan of Treatment Not on file documented as of this encounter Visit Diagnoses Not on filedocumented in this encounter Care Teams Manager Sharepoint Relationship Specialty Start Date End Date [facility], Nilsa [address] [address] PCP - General 02/25/12 documented as of this encounter
[2023-07-17 15:21] VITALS: BP 125/78; PULSE 96; TEMP 36.9
[2023-07-17 16:22] LABS: Amnisure Rom* Negative
[2023-07-17 16:40] LABS: Hematocrit 32.8 % (33.0-51.0); Hemoglobin* 11.1 gm/dL (12.0-16.0); Mean Corpuscular HGB Conc 34 gm/dL (32-36); Mean Corpuscular Hemoglobin 29 pg (26-34); Mean Corpuscular Volume 86 fL (80-100); Platelet Count* 248 K/uL (140-440); White Blood Count* 12.44 K/uL (4.50-11.00)
[2023-07-17] MEDS: LACTATED RINGERS 1000 ML 1,000 ML IV (16:42)
[2023-07-17] MEDS: ACETAMINOPHEN 500 MG TABLET 1000 MG PO (16:45)
[2023-07-17 16:56] LABS: Slide Review Reflex No
[2023-07-17 17:00] LABS: Creatinine* 0.5 mg/dL (0.5-1.5); Estimated Glomerular Filt Rate 131 ml/min
[2023-07-17 17:01] LABS: Alanine Aminotransferase* 19 U/L (4-35); Aspartate Amino Transferase* 23 U/L (12-35); Blood Urea Nitrogen* 10 mg/dL (5-24)
[2023-07-17 17:23] LABS: Total Protein Urine 11 mg/dL
[2023-07-17 17:24] LABS: Creatinine Urine 18.5 mg/dL
[2023-07-17 17:44] VITALS: BP 120/75; PULSE 110
[2023-07-17 17:45] VITALS: BP 120/75; PULSE 110; RESP 18; TEMP 36.9; O2SAT 98
[2023-07-17] MEDS: diphenhydrAMINE 50 MG/ML inj 25 MG IVP (18:15)
[2023-07-17] MEDS: METOCLOPRAMIDE HCL 5 MG/ML INJ 10 MG IVP (18:15)
--- NOTE | 2023-07-17 18:18 | PM.OBLDTN ---
OB - Triage/Final Diagnosis Visit Information Date Seen: 07/17/23 Narrative: The patient is a 28 year old 3 para 2 at 38.2 weeks gestation, who presents with contractions, headache, and vision changes. Shares that headache started earlier this morning, but worsened this afternoon. Contractions started this afternoon as well. Notably, had been dealing with a stressful situation with her ex-partner/FOB at the time the contractions started. Headache worsened with this stress as well. No vaginal bleeding or LOF that she knows of. FM has been normal. Swelling is stable. Does have upper quadrant abdominal pain, R>L. is complicated by hx post- pre-eclampsia (on ASA 162 mg), hx PPH, depression & anxiety (on Cymbalta) with history of suicide attempt following last delivery, maternal PFO, and narcolepsy. 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 Planning to deliver at [facility] due to this history for NICU availability. Patient was initially treated with 1 L IV fluids and 1000 mg Tylenol. Reports headache and vision changes persisted following this. Pre-eclampsia labs were obtained and notable for protein/creatinine ratio of 0.5. Blood pressures have remained WNL (120s/70s). Contractions have abated; repeat cervical exam approx 1.5 hrs following initial exam was unchanged. Reviewed case with MPP, Dr. Davis. Despite labs and symptoms, patient does not meet criteria for pre-eclampsia at this time as blood pressures have been normal. Dr. Davis recommended treating headache with additional medications (Reglan and Benadryl) as well as close blood pressure monitoring. If blood pressures worsen, patient would meet criteria and be suitable for transfer in anticipation of induction/delivery at that time. Recommend repeating labs if blood pressures worsen. If BP remains normal and headache improves, patient can discharge home with close follow-up. Additionally, if contractions return and patient has cervical change/labor, she could then transfer for delivery at [place]. Plan of care was discussed with patient who expresses understanding and agreement. Evaluation Cervical dilation (cm): 4 Cervical effacement (%): 50 Laboratory results: Laboratory Tests 07/17/23 07/17/23 07/17/23 Range/Units 16:59 16:35 15:50 WBC 12.44 H (4.50-11.00) K/uL RBC 3.80 L (4.00-5.20) m/uL Hgb 11.1 L (12.0-16.0) gm/dL Hct 32.8 L (33.0-51.0) % MCV 86 (80-100) fL MCH 29 (26-34) pg MCHC 34 (32-36) gm/dL Plt Count 248 (140-440) K/uL BUN 10 (5-24) mg/dL Creatinine 0.5 (0.5-1.5) mg/dL Estimated GFR 131 ml/min AST 23 (12-35) U/L ALT 19 (4-35) U/L Urine Creatinine 18.5 mg/dL Protein/Creatinin Ratio 0.50 H (0-0.19) Urine Total Protein 11 mg/dL Membrane Rupture Negative Vital signs: Vital Signs - 24 hr 07/17/23 15:21 07/17/23 17:44 07/17/23 17:45 Temperature 98.5 F 98.4 F Pulse Rate 96 110 H Respiratory Rate 18 Blood Pressure 125/78 120/75 120/75 Pulse Oximetry 98 Fetus (Single) Heart Rate Baseline: 120 Long-Term Variability: Moderate (6-25) Monitor Accelerations: Present Monitor Decelerations: None Station: -3 Final Diagnosis (1) Headache in : Status: Acute (2) Proteinuria affecting : Status: Acute Total Time Spent Total Time Spent: arrived to center: 15:15 completed documentation: 18:30 = 3 hrs, 15 min
[2023-07-17 18:35] VITALS: BP 122/74; PULSE 105
[2023-07-17 19:30] VITALS: BP 108/56; PULSE 97
--- NOTE | 2023-07-17 20:55 | PC.OBNST ---
NST Note NST Note Start: 07/17/23 15:53 Freq: ONCE Status: Active Protocol: Document 07/17/23 15:53 SP (Rec: 07/17/23 20:55 [id number]) NST Note 3 Para (# of births) 2 EDC 07/29/23 Gestational Age In Weeks & Days 38 Weeks & 2 Days High Risk Factors High Blood Pressure - Preexisting Patient Presented with Complaint(s) of Contractions/cramping,Headache Other Complaints History of PreEclampsia. Reactive Yes Appropriate for Gestational Age Yes SANTIAGO Bella Date 07/17/23 Reactive Yes Appropriate for Gestational Age Yes SANTIAGO Tierney RN Date 07/17/23 OB NST charge Yes Complete NST Note via Write Note Yes The provider's electronic signature indicates the NST is reactive/appropriate for gestational age. *Note to provider: If an addendum is required, open the patient's chart and click on the note under the Nurse/Allied Health tab.
== END 2023-07-17 20:57 | disposition home or self-care (01) ==
LOC: OB OUT 15:00 → OB 15:02
PROVIDERS: PCP Family Medicine; Visit Provider Family Medicine
DX: O10.913 Unspecified pre-existing hypertension complicating pregnancy, third trimester (principal); Z3A.38 38 weeks gestation of pregnancy
CPT/HCPCS: 36415; 59025; 76815; 82565; 82570; 84112; 84156; 84450; 84460; 84520; 85027; G0463; A9270; J1200; J2765; J7120

== ENCOUNTER 2023-09-23 01:30 | Outpatient (CLI) | payer BC, SELFPAY ==
--- OUTSIDE RECORDS SUMMARY | 2023-09-26 01:17 | XMS_ITS | Clinical Summary ---
Author Organization [facility] Address [place], [place] [address] Care Team Providers Care Stylist Apprentice Name Role Phone Malena Kenney MD Unavailable Vasiliy Orellana DO Unavailable Sosa Suarez MD Unavailable [phone] Godfrey Neil MD Unavailable Vasiliy Orellana DO Primary Care Provider [phone] Allergies Active Allergy Reactions Criticality Noted Date [...] 06/25/2023 Anxiety 05/23/2023 Patent foramen ovale 04/04/2023 [facility] Supervision of high-risk Overview: Daisy Trujillo : 1995 [facility] OB PATIENT [facility] CONSULT ON 03/09/23 Support person: SAMANTHA Huang ULTRASOUND TYPE: n/a NEXT VISIT ALERTS: 07/19/23 Repeat UPC and PIH labs per EN SUPERVISOR GRAPHITE 07/18/23 Eval in [place] [facility] for headache and contractions: dilated to [...] 07/25/23 TESTING PLAN: -No testing scheduled with [facility]. - Testing: Through GROWTH PLAN: - Next Growth: DELIVERY PLAN: - Scheduled delivery: - Preferred delivery location: UTD PRIMARY DIAGNOSIS: 27 y.o. Estimated Date of Delivery: 07/29/23 MATERNAL Term 2018 - PPD Term 2020 - GDMA1, delivered at [place] with PPH, [facility] [...] REFERRING PHYSICIAN/PHONE/LAST UPDATE: Dr. Vasiliy Orellana, [place] [facility] [phone] Primary MD approves scheduling of recommended ultrasounds/testing: Yes SPECIALISTS/CONSULTS: Psychiatry: Dr. Malena Kenney MD/Dr. Erick Ash [phone] [place] 06/19/23 [place] 07/2023 Siri Tipton--[place] [facility]--has been seeing her weekly for past 4 years Neurology: Godfrey Neil MD [facility] [place] 10/26/22 Include: Specialty MD Clinic Name Phone# LV [place] and ADDED TO PATIENT CARE TEAM yes 07/12/[address] Reece Bryant SEBAS signed for [facility]: MATERNAL CARE COORDINATION: [facility] Maternal Care Coordination Team: Sahra Foreman RN, Maryjane Javier RN, Ana Shetty RNC, & Mary Jama RN [phone] CARE COORDINATION: ROLLER SKATES ASSEMBLER: GENETICS: NIPT: low risk per patient AFP: [...] up . - Psychiatry (Dr. Malena Kenney; [facility]) every 1-2 months. Next visit: 08/12 (Dr. Kenney) - Psychology (Siri Tipton; [facility]) weekly - NICU consult 07/11 - Maternal care coordinators involved - Weight management referral N/A - Sleep medicine referral N/A Delivery - Patient should expect normal spontaneous vaginal delivery - Timing of delivery verna ROBLES 39 weeks unless medically indicated sooner - Tubal sterilization declined. - Planning to have a stereo equipment installer, [place]ened[place] and mother with her for labor. - Due to history of hemorrhage, plan to use two uterotonics with or without TXA to reduce the risk of PPH. - Will need filtered IV tubing in labor due to history of maternal patent foramen ovale - Contraception: desires copper IUD - Considering [place] program ([facility] mental health program); message sent to Damaris [...] Rh Positive Final Comment: Comment: Performed by [facility], [address] [place] [address] ANTIBODY SCREEN Date Value Ref Range Status 12/27/2022 Negative Negative Final Comment: Comment: Performed by [facility], [address] [place] [address] TREPONEMA PALLIDUM Date Value Ref Range [...] patient. ?? Medical Decision Making: Low Level 89385 Limited Diagnoses including two or more self-limited problems, and family history significant for history of neural tube defects. Limited Data including review of prior ultrasound and review of prior external notes Minimal risk of mortality to the fetus from additional testing. ?? Services Provided: Procedures Code DETAIL ANATOMY 92175.0 Genesis Maynard RN.....06/01/2021 2:11 PM Encounter for [...] was provided with contact information for the [facility] in [place], [place]. She will likely benefit from interventions that help her to make use of her reasoning and problem-solving abilities to address her variable attention, information processing speed, and learning. 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 The [...] Team Description 09/13/2023 1:30 PM CDT Telemedicine [facility] [address] [place] [address] Sosa Suarez MD Medication Management; Telehealth ( Psychiatry - MD ) 09/13/2023 Travel 09/11/2023 Telephone [facility] [address] [place] [address] Sosa Suarez MD Late Cancel Appointment (conflicts with appointment for one of her children ) 08/31/2023 1:10 PM CDT Office Visit [facility] [address] [place] [address] Vasiliy Orellana, Care; IUD (placement) 08/31/2023 Travel 08/28/2023 1:30 PM CDT Telemedicine [facility] [address] [place] [address] Sosa Suarez MD Telehealth (Psychiatry-MD) 08/13/2023 Telephone [facility] [address] [place] [address] Malena Kenney MD appointment (Cancelled appointment) 08/07/2023 Orders Only [facility] Scanner 1 scan: (1-Ord) [facility], MONITORING, 08/07/2023 08/02/2023 2:30 PM CDT Telemedicine [facility] [address] [facility] [address] [place] [address] Sosa Suarez MD Medication Management; Telehealth (MD) 08/02/2023 Travel 08/01/2023 Telephone [facility] [address] [address] Soas Suarez MD Follow Up (Referral/ fyi) 07/30/2023 Orders Only [facility] [address] [place] [address] Vasiliy Orellana, <No scans attached> 07/25/2023 12:30 PM CDT Home Care Visit [facility] & [address] [facility] [address] [place] [phone] Satya Evans RN SN OB - PP MOM ADMIT 07/24/2023 9:30 AM CDT Telemedicine [facility] [address] [facility] [address] [place] [address] Sosa Suarez MD Follow Up 07/24/2023 Telephone [facility] [address] [place] [address] Gretchen Balderas, [facility] Care Coordination 07/24/2023 Travel 07/22/2023 Travel 07/22/2023 Telephone [facility] - Mother & [address] [facility] [address] [place] [phone] [facility] ([facility] CALL) 07/19/2023 8:21 PM CDT - 07/22/2023 4:40 PM CDT Hospital Encounter [facility] [address] [place] [address] Galileo Antonio MD Hospitalist, [facility] (spontaneous vaginal delivery) (Primary Dx) Discharge Disposition: Home Self Care 07/19/2023 1:13 PM CDT - 07/19/2023 8:20 PM CDT Hospital Encounter [facility] [address] [facility] [address] [place] [address] Supervision of high risk , antepartum (Primary Dx) 07/19/2023 Travel 07/18/2023 9:30 AM CDT Telemedicine [facility] [address] [place] [address] Sosa Suarez MD Follow Up; Telehealth (Psychiatry-MD) 07/18/2023 Telephone [facility] [address] [facility] [address] [place] [address] Sosa Suarez MD Mental Health ( group) 07/18/2023 Telephone [facility] [address] [place] [address] Sosa Suarez MD SEBAS (/) 07/18/2023 Telephone [facility] [address] [place] [address] Vasiliy Orellana, Form (for legal ) 07/18/2023 Travel 07/18/2023 Telephone [facility] [address] [facility] [address] [place] [address] [facility] 07/12/2023 9:00 AM CDT - 07/12/2023 11:59 PM CDT Hospital Encounter [facility] [address] [place] [address] 07/11/2023 11:38 AM CDT - 07/11/2023 11:59 PM CDT Hospital Encounter [facility] [address] [place] [address] Denise Kowalski MD Patent foramen ovale 07/11/2023 10:00 AM CDT - 07/11/2023 11:37 AM CDT Hospital Encounter [facility] [address] [place] [address] Supervision of high risk in third trimester (Primary Dx) 07/11/2023 Travel 07/09/2023 Telephone [facility] [address] [place] [address] Maryjane Javier, RN Care Coordination 07/04/2023 10:30 AM CDT - 07/04/2023 11:59 PM CDT Hospital Encounter [facility] [address] [place] [address] Supervision of high risk in third trimester (Primary Dx) 07/04/2023 Travel 06/26/2023 Telephone [facility] [address] [place] [address] Adry Luo LICSW Follow Up 06/26/2023 Telephone [facility] [address] [place] [address] Maryjane Javier, RN Care Coordination 06/26/2023 Orders Only [facility] [address] [place] [address] Maryjane Javier, RN <No scans attached> from Last 3 Months Immunizations Name Administration [...] IV Meds N Livin g [place] Delivery Location:[place] Comments:had PPD on me dication 2021 Term 38w 2d 11h 00m/0h 10m/ 3.83 kg (8 lb 7 oz) M Vag-S pont Other N Livin g Luis Angel Delivery Location:[place] Comments:GDMA1, presen ismael at 8 cm, ballottable x 6 hours, PPH d/t soft uterus, [facility], re-admit for PP bleeding, PP psychosis 2023 Term 38w 5d 0h 23m 0h 12m/0h 11m 2.74 kg (6 lb 0.7 oz) M Vag None Livin g 7 8 Jeremi Chowdhury MD Complications:None Delivery Location:Hospital ( [facility] 1999 L&D TRIAGE) Summary Episode Dates Number of Fetuses Estimated Date of Delivery 12/21/2022 - Present (09/26/2023) 1 07/29/2023 (set by Vasiliy Orellana, on 12/28/2022 based on Last Menstrual Period on 10/22/2022 (Exact Date)) Dating Summary Based On VICKY GA Diff Last Menstrual Period on 10/22/2022 (Exact Date) 07/29/2023 Working Ultrasound on 12/19/2022 08/03/2023 -5d GA:7w4d Comment:08/03/23 Overview and Plan :Toney sex:Male Delivery Plans Planned delivery method:Vaginal Vitals Pregravid Weight Height TWG (As of 09/26/2023) Pregrav id BMI 65.8 kg (145 lb) [...] of Delivery: vaginal Episiotomy/Lacerations: none Complications: none #3 Chacho Gender male, Current Status normal [...] mg intrauterine device (IUD) 1 Device - TX INSERTION INTRAUTERINE DEVICE IUD 4. IUD (intrauterine [...] preparing for discharge later today. 07/22/2023 - 38w5d - Lexi Maxwell ra, RN Safety checks [...] to monitor and support pt. 07/21/2023 - 38w5paige - Larry Leal RN Reviewed feeding progress with parents and nurse. well. Questions around rousing techniques and flange size. Last baby 1.5 years ago and reports the NICU helped her size at 17 mm. She is hoping to find that size or close. Currently using 21 mm and desires to compare to smaller size. Plan is for weigh and charge worker to see if NICU has a smaller [...] female visitor with her now. 07/21/2023 - 38w5paige - Galileo Lynne MD OB Hospitalist Progress [...] of pre-eclampsia in prior , currently O09.299 [facility] Supervision of high-risk O09.90 Patent foramen ovale [...] the patient room. The patient is the without difficulty. Objective: BP 118/72 (Cuff Size: [...] was checked and was sleeping. 07/21/2023 - flako - Lexi Maxwell ra, RN 0600- Patient was checked and she was sleeping. 07/21/2023 - flako - Lexi Maxwell ra, RN 0505- Safety [...] plan of cares. 07/21/2023 - 38w5d - Lexi Maxwell ra, RN 0410- Patient checked and was pumping. 07/21/2023 - 38w5paige - Lexi Maxwell ra, RN 0200- Patient was checked and was sleeping. 07/21/2023 - 38wmadiha - Soni Ohara RN Problem: PAIN/COMFORT Goal: PATIENT'S PAIN IS </= STATED ACCEPTABLE COMFORT GOAL. Description: - Evaluate effectiveness of pain management-revise plan if necessary. Note: Pt requested Oxycodone upon arriving to her post room. Regulatory Affairs Strategy Specialist informed pt that pain is usually managed with Tylenol and Ibuprofen first and than if pain is not well managed we would call the doctor for something stronger for pain. Pt stated that she wanted information writer to call MD for an order for Oxycodone. MD was informed of pt's request and she order a one time dose of Oxycodone 10 mg's. Pt was rating her pain at a 6/10 at that time. Will continue to monitor. 07/21/2023 - 38w5d - Soni Ohara RN Problem: SAFETY Goal: [...] ( call light, emergency cord, television, food selector ) and other 2300 amenities that are [...] of care and safety initiatives 07/21/2023 - 38tracey - Candy Lobato RN 2129- Pt in stable condition. Able to bear own weight and ambulated to the bathroom. Voided 400 mL, norma-care done per pt/ 2144- Pt transferred to room 2341 via wheelchair with infant in arms. Settled into bed. Bedside report given to SANTIAGO Shafer. [place] fundal check completed. Care relinquished. Candy Lobato RN .................... 07/20/2023 10:12 PM 07/21/2023 - 38tracey - Candy Lobato RN 5- Pt back in room, breathing through contractions, [...] she did get methergine per Dr. Cramer. MD will continue to monitor in the course. Candy Lobato RN .................... 07/20/2023 8:50 PM 07/20/2023 - 38wJonasd - Candy Lobato RN 0- SVE at pt request, 6-7/80%/-2/soft/mid. Discussed with [...] RN .................... 07/20/2023 4:03 PM 07/20/2023 - 38tracey - Laurie Johnson RN Problem: SAFETY Goal: /MOTHER SAFETY IS MAINTAINED DURING LABOR AND DELIVERY PERIOD 07/20/2023 1524 by Laurie Johnson RN Note: Report given to Candy Stevenson RN and care of patient relinquished 07/20/2023 - flako - Citlaly Cramer MD OB HOSPITALIST Note Patient requests AROM SVE unchanged AROM clear fluid Category 1 EFM Continue expectant management Anticipate Citlaly Cramer MD .................... 07/20/2023 2:16 PM 07/20/2023 - Citlaly Fishman MD OB HOSPITALIST Note Patient without complaints, [...] MD .................... 07/20/2023 10:12 AM 07/20/2023 - 38w5paige - Citlaly Cramer MD OB HOSPITALIST Note [...] and care of patient assumed. 07/20/2023 - 38w5paige - Galileo Lynne MD Patient is a 28 yo at 38w5d gestation who lives in [place] and presented with an initial cervical exam [...] absolutely necessary. Galileo Antonio MD 07/20/2023 - flako - Brooke Gunderson RN Problem: PROGRESSION OF LABOR Goal: PATIENT DEMONSTRATES NORMAL PROGRESSION THROUGHOUT LABOR AND WITHOUT COMPLICATIONS Note: Pt ambulated to room 2031. EFM and toco applied. Admission navigator complete. Vitals done. Labs drawn and sent. Iv inserted x2 by iv consult. SVE 2300: 6/80/-2, no change. Pt requesting to go into tub. 07/20/2023 - 38tracey - Amada Nayak RN D: [place] [facility] [place] of rule [...] counter - 07/19/2023 - GA:38w4d 07/19/2023 - - Kandace Corona RN MD Physicians OB visit. Patient at [facility] Clinic for OB visit @ 38w4d gestation. Accompanied by her stereo equipment installer. Review of Symptoms Nausea / vomiting: Denies [...] were answered and understands she should call [facility] if she experiences any decreased movements, increased contractions (discomfort and frequency), vaginal bleeding, or leaking of fluid. After Visit Summary created, discussed and supplied to patient on discharge? Yes due to admission planning instructions. RN time Face to Face 15 min 07/19/2023 - - Gwendolyn Mensah NP [facility] Care Visit 28 y.o. year old at [...] child (12/2021). She attempted strangulation with a math and science division chair cord in her hospital bathroom. She notes this was a time of increased stress after her baby's transfer, hemorrhage, and diagnosis of preeclampsia. She follows with Malena Kenney and Sosa Suarez, psychiatrists with [facility] (every 1-2 months) and Siri Anton ([facility]) weekly (for the past 4 years). She is taking cymbalta 120mg daily for depression/anxiety and ativan as needed. She is not taking gabapentin (was previously prescribed). She attended [place] program at [facility] and also [facility] program where she met her [...] disease. Estimated EF: 55% Was seen in [place] triage for labor, headache on 07/16. BP and serum labs normal. PC ratio was 0.5 per RN report. 4cm dilated Subjective: The patient feels well. Here with Membership Advisor Venedia. Intermittent contractions about every 20 minutes. [...] up . - Psychiatry (Dr. Malena Kenney; [facility]) every 1-2 months. Next visit: 08/12 (Dr. Kenney) - Psychology (Siri Tipton; [facility]) weekly - Maternal care coordinators involved Delivery - Patient should expect normal spontaneous vaginal delivery - Timing of delivery 39 weeks - IOL for Saturday 07/22 am if doesn't labor prior - Tubal sterilization declined. - Planning to have a stereo equipment installer - Due to history of hemorrhage, plan to use two uterotonics with or without TXA to reduce the risk of PPH. - Will need filtered IV tubing in labor due to history of maternal patent foramen ovale - Contraception: desires copper IUD - Considering [place] program ([facility] mental health program); message sent to Damaris COATES to review - plans to have stereo equipment installer that is available to support for up to 4 weeks -follow up with Dr Suarez psychiatry - August 14 @ 9:30 am x minutes virtually for post- visit Gwendolyn Mensah NP..................... 07/19/2023, 3:30 PM Progress Notes - Hospital En counter - 07/11/2023 - GA:37w3d 07/11/2023 - 37w3d - Genny Caban RN MD Physicians OB visit. Patient at [facility] Clinic for OB visit @ 37w3d gestation. [...] B Strep, depression, labor, routine screening and [facility] visit routines. See Patient education section for [...] her mother also in delivery with her stereo equipment installer. Pt has VV NICU consult today. Pt also has appt for ECHO this afternoon. Scheduled to see Alicia Real APRN today. Patient states that all her questions were answered and understands she should call [facility] if she experiences any decreased movements, increased [...] - 36w3d - Rafita Salas , RN MD Physicians OB visit. Patient at [facility] Clinic for OB visit @ 36w3d gestation. [...] B Strep, depression, labor, routine screening and [facility] visit routines. See Patient education section for [...] delivery: H&P and Plan in chart? Yes [facility] appointment made for H&P with SUPERVISOR GRAPHITE within 30 days of delivery? Yes 07/04/23 Patient questions/concerns accompanied by Samantha Huang today. Patient reports had good busy weekend. She is feeling more tired than usual. Again wishing she had more time before delivery. Open to getting cervical exam today and she had her daughter early. Scheduled to see Alicia Real SUPERVISOR GRAPHITE today. Patient states that all her questions were answered and understands she should call [facility] if she experiences any decreased movements, increased contractions (discomfort and frequency), vaginal bleeding, or leaking of fluid. After Visit Summary created, discussed and supplied to patient? No due to no new orders or instructions. RN time Face to Face 20 min Rafita Salas RN .................... 07/04/2023 10:33 AM 07/04/2023 - 36w3d - Alicia Real NP [facility] Care Visit 27 y.o. year old at [...] child (12/2021). She attempted strangulation with a math and science division chair cord in her hospital bathroom. She notes this was a time of increased stress after her baby's transfer, hemorrhage, and diagnosis of preeclampsia. She follows with Malena Kenney and Sosa Suarez, psychiatrists with [facility] (every 1-2 months) and Siri Anton ([facility]) weekly (for the past 4 years). She is taking cymbalta 120mg daily for depression/anxiety and ativan as needed. She is not taking gabapentin (was previously prescribed). She attended [place] program at [facility] and also [facility] program where she met her [...] at age 17, did sleep study through [facility] Patent foramen ovale 12/20/2007 Prior [...] for: EXTRCBANTIBO, EXTRUBELLAIG, EXTTREPONEPA, EXTVDRL, EXTHBSAG, EXTHEPCABY, UVTCCB6UGH, EXTHGB, EXTMCV, EXTVITD, EXTURINECULT, EXTNGONNOR, EXTCHLAMYDIA, EXTPAP, ACLCHB9SG, DQEEDH1DO, PCQXDLM5H, EXTTSH, OIIY3XOVD, EXTGLOBULIN, EXTGBS, [id number] Recent Labs 12/27/22 1115 ABORH O Rh Positive ANTIBODY SCREEN Date Value Ref Range Status 12/27/2022 Negative Negative Final Comment: Comment: Performed by [facility], [address] [place] [id number] TREPONEMA PALLIDUM Date Value Ref Range Status [...] good movement. She is here with her stereo equipment installer today, Venedia. Emotionally/mentally she reports she is [...] of pre-eclampsia in prior , currently O09.299 [facility] Supervision of high-risk O09.90 Patent foramen ovale [...] up . - Psychiatry (Dr. Malena Kenney; [facility]) every 1-2 months. Next visit: 08/12 (Dr. Kenney) - Psychology (Siri Tipton; [facility]) weekly - Maternal care coordinators involved - Weight management referral N/A - Sleep medicine referral N/A Delivery - Patient should expect normal spontaneous vaginal delivery - Timing of delivery verna ROBLES 39 weeks unless medically indicated sooner - Tubal sterilization declined. - Planning to have a stereo equipment installer - Due to history of hemorrhage, plan to use two uterotonics with or without TXA to reduce the risk of PPH. - Will need filtered IV tubing in labor due to history of maternal patent foramen ovale - Contraception: desires copper IUD - Considering [place] program ([facility] mental health program); message sent to Damaris COATES to review [facility] [place] [facility] [phone] The [facility] summary has been reviewed. Progress [...] quite distressing to her. Working to find civil litigation attorney. Concerned about growth. Measure at 21st percentile per growth US at 30 weeks from 05/23/23. Fundal height 31 cm today. I did reach out to [facility] provider regarding possibility of repeat growth US and scheduling this with [facility] at one of her upcoming visits. Having some kym thomas contractions; nothing regular. Sometimes painful. No bleeding or LOF. No RUQ pain or vision changes. No changes in headaches (they're there, but they haven't gotten worse.) Tylenol helps with headaches. Baby is moving well TDaP: 05/16/23 Plan to follow up with [facility] in 2 weeks and weekly thereafter. Vasiliy Orellana, .................... 06/21/2023 12:42 PM Progress Notes - Hospital En counter - 06/20/2023 - GA:34w3d 06/20/2023 - 34w3d - Rafita Salas RN MD Physicians OB visit. Patient at [facility] Clinic for OB visit @ 34w3d gestation. [...] were answered and understands she should call [facility] if she experiences any decreased movements, increased contractions (discomfort and frequency), vaginal bleeding, or leaking of fluid. After Visit Summary created, discussed and supplied to patient? No due to no new orders or instructions. RN Time Face to Face 20 min Rafita Salas RN .................... 06/20/2023 2:22 PM 06/20/2023 - 34w3d - Cindy Ramirez CNM [facility] Care Visit 27 y.o. year old at [...] child (12/2021). She attempted strangulation with a math and science division chair cord in her hospital bathroom. She notes this was a time of increased stress after her baby's transfer, hemorrhage, and diagnosis of preeclampsia. She follows with Malnea Kenney and Sosa Suarez, psychiatrists with [facility] (every 1-2 months) and Siri Anton ([facility]) weekly (for the past 4 years). She is taking cymbalta 120mg daily for depression/anxiety and ativan as needed. She is not taking gabapentin (was previously prescribed). She attended [place] program at [facility] and also [facility] program where she met her [...] of pre-eclampsia in prior , currently O09.299 [facility] Supervision of high-risk O09.90 Patent foramen ovale [...] Low risk cell free DNA - PHQ/LOLA /, respectively on 05/23 Consults - JAXON Rodrigez involved - [facility] every trimester; she plans to follow up . - Psychiatry (Dr. Malena Kenney; [facility]) every 1-2 months. Next visit: 08/12 (Dr. Kenney) - Psychology (Siri Tipton; [facility]) weekly - Maternal care coordinators involved - Weight management referral N/A - Sleep medicine referral N/A Delivery - Patient should expect normal spontaneous vaginal delivery - Timing of delivery TBD - Tubal sterilization declined. - Planning to have a stereo equipment installer - Due to history of hemorrhage, plan to use two uterotonics with or without TXA to reduce the risk of PPH. - Will need filtered IV tubing in labor due to history of maternal patent foramen ovale - Contraception: desires copper IUD - Considering [place] program ([facility] mental health program); message sent to Damaris COATES to review Cindy Ramirez CNM [facility] [phone] The Compass summary has been reviewed. Progress Notes - OB Encounte r - 06/07/2023 - GA:32w4d 06/07/2023 - - Vasiliy Orellana DO Patient is here for routine care at 32w4d -specific issues: Hx GDM Hx post- pre-eclampsia Hx PPH FHx neural tube defects Anxiety/depression - on Cymbalta Hx narcoplepsy Following with MPP; plans to deliver at [facility] or [facility]. Will continue being seen in [place] for OB care until 36 weeks, then plans for weekly visits with [facility] at that point. Concerns today: feeling much [...] symptoms. Patient was able to get a stereo equipment installer. F/up with me in 2 weeks, then MPP thereafter. Vasiliy Orellana DO .................... 06/07/2023 10:24 AM NCE INTERN Progress Notes - Hospital En counter - 05/23/2023 - GA:30w3d 05/23/2023 - 30w3d - Mary Olivier RN [facility] New OB visit Patient here @ 30w3d gestation for her first OB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
--- OUTSIDE RECORDS SUMMARY | 2023-09-26 01:17 | XMS_ITS | Encounter Summary ---
Author Organization [place] Address [address] [place] [address]. [place] [address] Care Team Providers Care Supervisor Rough End Name Role Phone Clinic, [facility] Primary Care Provider Reason for Visit * Reason Onset Date Comments MH/CD Inpatient 02/15/2018 Encounter Details Date Type Department Care Team ([facility] Contact Info) Description 02/15/2018 Telephone [facility] Behavioral Health Intake [address] [place] [address] [phone] Generic, Behavioral Intake, MH/CD Inpatient Social History [...] ReeceRai shay Timothy - 02/15/2018 5:11 PM PARATRANSIT DRIVER S: JEANMARIE called to place a 22 [...] 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 Pt had made multiple suicide attempts while in the program and was sent to the hospital for ingestingseveral pills. UDS is positive for cannabinoids. Pt reports her last use of cannabis and alcohol was last week. Pt has been medically cleared in the ED. A: Voluntary. R: 4A/Dongre. scalloper paged at 1806. scalloper approved admission at 1810. Unit notified at 1814. ED notified at 1825. TRANSIT DRIVER documented in this encounter Plan of Treatment Not on file documented as of this encounter Visit Diagnoses Not on filedocumented in this encounter Care Teams Supervisor Rough End Relationship Specialty Start Date End Date [facility], [address] [address] PCP - General 02/25/12 documented as of this encounter
--- OUTSIDE RECORDS SUMMARY | 2023-09-26 01:17 | XMS_ITS | Encounter Summary ---
Author Organization [place] Address [address] [place] [address]. [place] [address] Care Team Providers Care Cash Clerk Name Role Phone Clinic, [facility] Primary Care Provider Encounter Details Date Type Department Care Team ([facility] Contact Info) Description 03/03/2012 Telephone [facility] Behavioral Health Intake [address] [place] [address] [phone] Generic, Behavioral Intake, Social History Tobacco Use [...] PM CST Pt is being transported from [facility] via police. Dr Law is calling. [...] the wall today. B: Pt was at [facility] for 28 days then dc'd to [facility] for 4 weeks. Hx etoh and depression. Pt has run x 5 from [facility] and makes suicidal statements. A: Er doctor talked to mom. Mom is okay with her coming in. Pt is cooperative. Mom's cell is [phone], her name is Hoa. She is expecting a call from the unit [facility]. R: Dr Kurt REY TED CIRCUIT BOARDS ROUTER documented in this encounter Plan of Treatment Not on file documented as of this encounter Visit Diagnoses Not on filedocumented in this encounter Care Teams Cash Clerk Relationship Specialty Start Date End Date [facility], [address] [address] PCP - General 02/25/12 documented as of this encounter
--- OUTSIDE RECORDS SUMMARY | 2023-09-26 01:17 | XMS_ITS | Clinical Summary ---
Author Organization [place] Address [address] [place] [address] Care Team Providers Care Rn Home Health Name Role Phone Clinic, [facility] Primary Care Provider Allergies Active Allergy Reactions [...] Advance Directives For more information, please contact: [phone] * Full Code (Latest Code Status on [...] 11:30 PM 03/13/2012 11:27 AM Care Teams Rn Home Health Relationship Specialty Start Date End Date [facility], [address] [address] PCP - General 02/25/12
--- OUTSIDE RECORDS SUMMARY | 2023-09-26 01:17 | XMS_ITS | Referral Summary ---
Author Organization [place] Address [address] [place] [address] Care Team Providers Care Library Assistant Name Role Phone Clinic, [facility] Primary Care Provider Allergies Active Allergy Reactions [...] Advance Directives For more information, please contact: [phone] * Full Code (Latest Code Status on [...] 11:30 PM 03/13/2012 11:27 AM Care Teams Library Assistant Relationship Specialty Start Date End Date [facility], [address] [address] PCP - General 02/25/12
== END 2023-09-23 01:31 | disposition home or self-care (01) ==
LOC: AMB 09-26 01:15
PROVIDERS: PCP Family Medicine; Visit Provider Family Medicine
DX: R45.851 Suicidal ideations (principal)
CPT/HCPCS: A0998

== ENCOUNTER 2023-09-23 02:38 | Emergency (ER) | payer BC, SELFPAY ==
[2023-09-23 02:53] VITALS: BP 106/76; PULSE 116; RESP 16; TEMP 36.4; O2SAT 96; BMI 27.5
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
[2023-09-23] MEDS: IBUPROFEN 400 MG TABLET 800 MG PO (03:28)
--- OUTSIDE RECORDS SUMMARY | 2023-09-23 03:33 | XMS_ITS | Referral Summary ---
Author Organization [facility] Address [address] [place] [address] Care Team Providers Care Track Patrol Name Role Phone Clinic, [facility] Primary Care Provider Allergies Active Allergy Reactions [...] as needed Active norethindrone-ethiny l estradiol (MICROGESTIN 1.530) 1.5-30 MG-MCG tablet Take 1 tablet by [...] Advance Directives For more information, please contact: [phone] * Full Code (Latest Code Status on [...] Comments Code status determined by: Discussion with patie nt/legal decision maker * Full Code Date Activated Date Inactivated Comments 03/03/2012 11:30 PM 03/13/2012 11:27 AM Care Teams Track Patrol Relationship Specialty Start Date End Date [facility], [address] [address] PCP - General 02/25/12
--- OUTSIDE RECORDS SUMMARY | 2023-09-23 03:33 | XMS_ITS | Encounter Summary ---
Author Organization [facility] Address [address] [place] [address]. [place] [address] Care Team Providers Care Vpk Teacher Name Role Phone [facility] Provider Encounter Details Date Type Department Care Team ([facility] Contact Info) Description 03/03/2012 Telephone [facility] Behavioral Health Intake [address] [place] [phone] Generic, Behavioral Intake, Social History Tobacco Use [...] PM CST Pt is being transported from [facility] via police. Dr Law is [...] the wall today. B: Pt was at [facility] for 28 days then dc'd to [facility] for 4 weeks. Hx etoh and depression. Pt has run x 5 from [facility] and makes suicidal statements. A: Er doctor talked to mom. Mom is okay with her coming in. Pt is cooperative. Mom's cell is [phone], her name is Hoa. She is expecting a call from the unit [employer]. R: Dr Kurt REY NER documented in this encounter Plan of Treatment Not on file documented as of this encounter Visit Diagnoses Not on filedocumented in this encounter Care Teams Vpk Teacher Relationship Specialty Start Date End Date [facility], [address] [address] PCP - General 02/25/12 documented as of this encounter
--- OUTSIDE RECORDS SUMMARY | 2023-09-23 03:33 | XMS_ITS | Clinical Summary ---
Author Organization [facility] Address [address] [place] [address] Care Team Providers Care Metal Stamper Name Role Phone Clinic, [facility] Primary Care Provider Allergies Active Allergy Reactions [...] COVID-19 Vaccine ( season) 2022 INFLUENZA VACCINE (Season Ended) 2023 01/15/2018, 01/31/2017, 01/31/2017, Additional history exists [facility] [...] Advance Directives For more information, please contact: [phone] * Full Code (Latest Code Status on [...] 11:30 PM 03/13/2012 11:27 AM Care Teams Metal Stamper Relationship Specialty Start Date End Date [facility], [address] [address] PCP - General 02/25/12
--- OUTSIDE RECORDS SUMMARY | 2023-09-23 03:33 | XMS_ITS | Encounter Summary ---
Author Organization [facility] Address [address] [place] [address]. [place] [address] Care Team Providers Care State Patrol Officer Name Role Phone Clinic, [facility] Primary Care Provider Reason for Visit * Reason Onset Date Comments MH/CD Inpatient 02/15/2018 Encounter Details Date Type Department Care Team ([facility] Contact Info) Description 02/15/2018 Telephone [facility] Behavioral Health Intake [address] [place] [address] [phone] Generic, Behavioral Intake, MH/CD Inpatient Social History [...] ReeceRai shay Timothy - 02/15/2018 5:11 PM HOME APPLIANCE TECH S: JEANMARIE called to place a 22 y/o female [...] dual diagnosis treatment for a year at [facility] 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 Pt had made multiple suicide attempts while in the program and was sent to the hospital for ingestingseveral pills. UDS is positive for cannabinoids. Pt reports her last use of cannabis and alcohol was last week. Pt has been medically cleared in the ED. A: Voluntary. R: 4A/[place]ong[address]. road inspector paged at 1806. road inspector approved admission at 1810. Unit notified at 1814. ED notified at 1825. APPLIANCE TECH documented in this encounter Plan of Treatment Not on file documented as of this encounter Visit Diagnoses Not on filedocumented in this encounter Care Teams State Patrol Officer Relationship Specialty Start Date End Date [facility], [address] [address] PCP - General 02/25/12 documented as of this encounter
--- OUTSIDE RECORDS SUMMARY | 2023-09-23 03:33 | XMS_ITS | Clinical Summary ---
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 Orellana DO URINE [facility] [address] [place] [address], * SCAN-EVENT MONITOR (08/07/2023 12:00 AM CDT) Scanner OTHER * (ABNORMAL) Hemoglobin (07/21/2023 6:46 AM CDT) Only the most recent of2 resultswithin the time period is included. HEMOGLOBIN 10.8(L) 12.0 - 16.0 g/dL 07/21/2023 6:53 AM CDT [facility] MCV 84 80 - 100 fL 07/21/2023 6:53 AM CDT [facility] Blood BLOOD SPECIMEN / Unknown Venipuncture / Unknown 07/21/2023 6:46 AM CDT 07/21/2023 6:50 AM CDT Narrative [facility] - 07/21/2023 6:53 AM CDT day 1. Citlaly Cramer MD HEMATOLOGY [facility] SENDOUT INTERNAL ZIP [phone] [place] [address] * Treponema Pallidum (07/19/2023 10:01 PM CDT) Only the most recent of2 resultswithin the time period is included. TREPONEMA PALLIDUM Non-Reacti ve Non-Reacti ve 07/20/2023 1:59 AM CDT [facility] TR[facility] Blood BLOOD SPECIMEN / Unknown Venipuncture / Unknown 07/19/2023 10:01 PM CDT 07/19/2023 10:10 PM CDT Galileo Antonio MD [facility] [address] [place] [address], * TYPE & SCREEN (07/19/2023 10:01 PM CDT) ABORH O Rh Positive 07/19/2023 11:03 PM CDT [facility] BLOOD BANK ANTIBODY SCREEN Negative Negative 07/19/2023 11:03 PM CDT [facility] BLOOD BANK SPECIMEN EXPIRATION DATE/TIME 07/22/23 23:59 07/19/2023 11:03 PM CDT [facility] BLOOD BANK Blood BLOOD SPECIMEN / Unknown Venipuncture / Unknown 07/19/2023 10:01 PM CDT 07/19/2023 10:10 PM CDT Galileo Antonio MD BLOOD BANK [facility] BLOOD BANK [address] [place] [address] * (ABNORMAL) CBC W PLT NO DIFF (07/19/2023 10:01 PM CDT) WHITE BLOOD COUNT 10.7 4.5 - 11.0 thou/cu mm 07/19/2023 10:13 PM CDT [facility] RED BLOOD COUNT 3.81(L) 4.00 - 5.20 mil/cu mm 07/19/2023 10:13 PM CDT [facility] HEMOGLOBIN 11.2(L) 12.0 - 16.0 g/dL 07/19/2023 10:13 PM CDT [facility] HEMATOCRIT 33.3 33.0 - 51.0 % 07/19/2023 10:13 PM CDT [facility] MCV 87 80 - 100 fL 07/19/2023 10:13 PM CDT [facility] MCH 29.4 26.0 - 34.0 pg 07/19/2023 10:13 PM CDT [facility] MCHC 33.6 32.0 - 36.0 g/dL 07/19/2023 10:13 PM CDT [facility] RDW 13.0 11.5 - 15.5 % 07/19/2023 10:13 PM CDT [facility] PLATELET COUNT 264 140 - 440 thou/cu mm 07/19/2023 10:13 PM CDT [facility] MPV 9.4 6.5 - 11.0 fL 07/19/2023 10:13 PM CDT [facility] NRBC 0.0 % 07/19/2023 10:13 PM CDT [facility] ABS NRBC 0.0 thou /cu mm 07/19/2023 10:13 PM CDT [facility] Blood BLOOD SPECIMEN / Unknown Venipuncture / Unknown 07/19/2023 10:01 PM CDT 07/19/2023 10:10 PM CDT Galileo Antonio MD HEMATOLOGY Performing Organization Address [facility] Co de Phone Number [facility] SENDOUT INTERNAL ZIP [phone] [place] [address] * CREATININE (07/19/2023 10:01 PM CDT) eGFR >90 >90 mL/min/1.7 3m2 07/19/2023 10:39 PM CDT [facility] Comment:As of 2021, eG FR is calculated by the CKD-EPI creatinine equation without race adjustment. ??eGFR can be influenced by muscle mass, exercise, and diet. ??The reported eGFR is an estimation only and is only applicable if the renal function is stable. CREATININE 0.59 0.50 - 0.90 mg/dL 07/19/2023 10:39 PM CDT [facility] Blood BLOOD SPECIMEN / Unknown Venipuncture / Unknown 07/19/2023 10:01 PM CDT 07/19/2023 10:10 PM CDT Galileo Antonio MD CHEMISTRY Performing Organization Address [facility] Co de Phone Number [facility] SENDOUT INTERNAL ZIP [address] [place] [phone] * AST (SGOT) (07/19/2023 10:01 PM CDT) AST (SGOT) 23 10 - 35 IU/L 07/19/2023 10:39 PM CDT [facility] Blood BLOOD SPECIMEN / Unknown Venipuncture / Unknown 07/19/2023 10:01 PM CDT 07/19/2023 10:10 PM CDT Galileo Antonio MD CHEMISTRY Performing Organization Address City/[facility]/ZIP Co de Phone Number [facility] SENDOUT INTERNAL ZIP [phone] [place] [address] * PROTEIN/CREAT RATIO,URINE (07/19/2023 1:29 PM CDT) PROTEIN QUANT,RAND URINE 12 1 - 14 mg/dL 07/19/2023 2:02 PM CDT [facility] CREAT,RANDOM URINE 87.4 28.0 - 217.0 mg/dL 07/19/2023 2:02 PM CDT [facility] PROT/CREAT RATIO,UR 0.1 <0.2 07/19/2023 2:02 PM CDT [facility] Urine URINE SPECIMEN / Unknown Non-Blood / Unknown 07/19/2023 1:29 PM CDT 07/19/2023 1:29 PM CDT Gwendolyn Mensah DIRECTOR INTERNAL CONTROL URINE [facility] SENDOUT INTERNAL ZIP [phone] [place] [address] * ECHO TTE COMPLETE WO CONTRAST (07/11/2023 12:10 PM CDT) EJECTION FRACTION 55% PROSOLV Anatomical Region Laterality Modality Ultrasound 07/11/2023 11:4 4 AM CDT Narrative 07/11/2023 1:[address] PM CDT [address], [place] [address] Main: ? Transthoracic Echo Report DAISY TRUJILLO ID: [id number] Age: 28 : 1995 Ordering Provider: DENISE KOWALSKI Exam Date: 07/11/2023 11:44 Gender: F Senior Analyst: [place] Height: 64 in BSA: 1.77 m?? BP: 111 / 68 Weight: 158 lbs BMI: 27.1 kg/m?? HR: 75 Location: [facility] Rhythm: Normal Sinus Rhythm Procedure Components: 2D [...] Aortic Root ZScore: -1.56 Marcial Lombardi MD [facility] Accredited Site (Electronically Signed) Final Date: 11 July 2023 13:56 ICD-10 Codes: Q21.12 Procedure Note Marcial Lombardi MD - 07/11/[address], [place] [address] Main: Transthoracic Echo Report DAISY TRUJILLO Mauro ID: [id number] Age: 28 : 1995 Ordering Provider:DENISE KOWALSKI Exam Date: 07/11/2023 11:44 Gender: F Senior Analyst: [facility] Height: 64 in BSA: 1.77 m?? BP: 111 / 68 Weight: 158 lbs BMI: 27.1 kg/m?? HR: 75 Location: [facility] Rhythm: Normal SinusRhythm Procedure Components: 2D imaging, [...] B PCR Negative 07/06/2023 8:35 AM CDT [facility] Other (Vaginal/Rectal) Non-Blood / Unknown 07/04/2023 11:34 AM CDT 07/04/2023 11:34 AM CDT Alicia Real NP MICROBIOLOGY [facility] [address] [place] [address], * Growth Follow Up Any Trimester (CPT 57865) (06/25/2023 3:26 PM CDT) Anatomical Region Laterality Modality , 2or 3 [...] for the present indication. -Weekly visits with [facility] as she is transferring care this next [...] pulmonary hypertension: Plan is for delivery at [place] to ensure all available resources are present. Medical Decision Making: Moderate Level 49666 ?Moderate number/complexity of problems including an undiagnosed [...] Services Provided: Procedures Code FOLLOW UP GROWTH 90956.0 Procedure Note Denise Kowalski MD - 06/25/2023 Referred By: VASILIY ORELLANA IndicationsCode 35 weeks gestation of [id number] Hx GDM, PPH, PP Pre-E in second [...] necessary forthe present indication. -Weekly visits with [facility] as she is transferring care this next [...] with pulmonary hypertension: Plan [place] ensure all available resources are present. Medical Decision Making: Moderate Level 29719 Moderate number/complexity of problems including an undiagnosed [...] health, etc. Services Provided: ProceduresCode FOLLOW UP [id number] Annalisa Evans [place] * ANTI HCV (12/27/2022 11:15 AM CDT) Pathologist [facility] HEPATITIS C ANTIBODY Non-Reacti ve Non-React jv 12/28/2022 4:17 AM CDT [facility] Comment:Please note, per www .CDC.gov: [...] AM CDT Vasiliy Orellana DO [facility] [address] [place] [address], * ANTI HIV 1/2 (12/27/2022 11:15 AM CDT) Pathologist [facility] HIV-1/HIV-2 SCREEN Non-Reacti ve Non-Reacti ve 12/28/2022 4:17 AM CDT [facility] Comment:HIV-1 p24 and HIV-1/ HIV-2 Ab Not Detected. Blood BLOOD SPECIMEN / Unknown Venipuncture / Unknown 12/27/2022 11:15 AM CDT 12/27/2022 11:18 AM CDT Vasiliy Orellana DO SEND OUTS [facility] [address] [place] [address], * SLAB MILLER OPERATOR THIN PREP PAP SCREEN IMAGED (11/15/2020 1:35 PM CDT) Case Report Gynecologic Cytology Report ? Case: [id number] ? Authorizing Provider: ??Juliet Farrell ? Collected: ? 11/15/2020 1335 ? MD Evelyn ? Ordering Location: ? [facility] ?? Received: ?11/15/2020 1505 ? Clinic ? First Screen: ?BacNick groves ? Specimen: ?SLAB MILLER OPERATOR ThinPrep Vial Screening, Cervical ? 11/25/2020 2:35 PM CDT [facility]- ENTRAL LABORATORY INTERPRETATION/ RESULT NEGATIVE FOR INTRAEPITHELIAL LESION OR MALIGNANCY (NIL) (none) 11/25/2020 2:35 PM CDT [facility]- ENTRAL LABORATORY IMEN ADEQUACY Satisfactory for evaluation Endocervical component present 11/25/2020 2:35 PM CDT [facility]- ENTRAL LABORATORY HPV REQUEST HPV if ASCUS 11/25/2020 2:35 PM CDT [facility] LABORAT[facility]-C ENTRAL LABORATORY Date of LMP 11/02/2020 11/25/2020 2:35 PM CDT [facility]-C ENTRAL LABORATORY Last Pap Date 03/19/18 11/25/2020 2:35 PM CDT [facility] LABORAT[facility]-C ENTRAL LABORATORY Last Pap Result NIL 2:35 PM CDT [facility]- ENTRAL LABORATORY Abnormal Pap or [place] Bx in last 5 years No 11/25/2020 2:35 PM CDT [facility] LAB[facility]-C ENTRAL LABORATORY Menstrual Status Regular Periods 11/25/2020 2:35 PM CDT [facility]- ENTRAL LABORATORY [place] Bx Done Today No 11/25/2020 2:35 PM CDT [facility]-C ENTRAL LABORATORY Additional Information None given 11/25/2020 2:35 PM CDT [facility]- EN[facility]AL LAB[facility]ATORY Comment: Cytology is screened at [facility], Central Laboratory - [address], [place] [address] and [facility] Laboratory - [address], [place] [address] and [facility] - [address], [place] [address] Interpreted at [facility], Central Laboratory - [address], [place] [address] Automated Review Successful 11/25/2020 2:35 PM CDT [facility]C ENTRAL LABORATORY Comment:Specimen processed s uccessfully by automated machine operator packaging device, ThinPrep Imaging System, [employer] Note The pap test is a [...] and malignant lesions. 11/25/2020 2:35 PM CDT [facility]- EN[facility]AL LABORATORY Other (Cervical) Non-Blood / Unknown 11/15/2020 1:35 PM CDT 11/15/2020 3:05 PM CDT Juliet Farrell MD PATHOLOGY/ CYTOLOGY [facility] [address] [place] [address], [place] from Last 3 Months or Most [...] 4:00 PM 07/14/2011 5:31 PM Care Teams Strategy Manager Relationship Specialty Start Date End Date Vasiliy Orellana DO [address] [facility] [address] PCP - General Family Practice 08/28/23 Malena Kenney MD [address] [facility] [address] Psychiatry 01/20/22 Vasiliy Orellana DO [address] [place] [address] Referring Provider Family Practice 01/26/23 Sosa Suarez MD [address] [place] [address] Psychiatry 04/04/23 Godfrey Neil MD [address] [facility] [address] [place] [address] Neurology Neurology 05/04/23
[2023-09-23 05:24] VITALS: RESP 16
--- NOTE | 2023-09-23 05:25 | PC.NURSE ---
patient asleep in room, RR even and unlabored. call light in reach
[2023-09-23 09:04] VITALS: BP 118/73; PULSE 97; RESP 18; TEMP 36.5; O2SAT 98
== END 2023-09-23 10:02 | disposition home or self-care (01) ==
PROVIDERS: Emergency Provider Family Medicine; PCP Family Medicine
DX: R45.851 Suicidal ideations (principal); F10.129 Alcohol abuse with intoxication, unspecified
CPT/HCPCS: 99284; A9270

== ENCOUNTER 2023-09-25 03:52 | Emergency (ER) | payer BC, SELFPAY ==
[2023-09-25 03:56] VITALS: BP 151/87; PULSE 106; RESP 16; TEMP 36.3; O2SAT 98; BMI 27.1
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
[2023-09-25] MEDS: ACETAMINOPHEN 500 MG TABLET 1000 MG PO (04:39)
[2023-09-25] MEDS: IBUPROFEN 400 MG TABLET 800 MG PO (04:40)
--- OUTSIDE RECORDS SUMMARY | 2023-09-25 04:42 | XMS_ITS | Encounter Summary ---
Author Organization [place] Address [address] [place] [address]. [place] [address] Care Team Providers Care Classification Officer Name Role Phone Clinic, [facility] Primary Care Provider Encounter Details Date Type Department Care Team ([facility] Contact Info) Description 03/03/2012 Telephone [facility] Behavioral Health Intake [address] [place] [address] [phone] Generic, Behavioral Intake, Social History Tobacco Use [...] PM CST Pt is being transported from [facility] via police. Dr Law is calling. [...] the wall today. B: Pt was at [facility] for 28 days then dc'd to [facility] for 4 weeks. Hx etoh and depression. Pt has run x 5 from [facility] and makes suicidal statements. A: Er doctor talked to mom. Mom is okay with her coming in. Pt is cooperative. Mom's cell is [phone], her name is Hoa. She is expecting a call from the unit Ailvxing net. R: Dr Kurt REY R SOFTWARE ENGINEER documented in this encounter Plan of Treatment Not on file documented as of this encounter Visit Diagnoses Not on filedocumented in this encounter Care Teams Classification Officer Relationship Specialty Start Date End Date [facility], [address] [address] PCP - General 02/25/12 documented as of this encounter
--- OUTSIDE RECORDS SUMMARY | 2023-09-25 04:42 | XMS_ITS | Encounter Summary ---
Author Organization [place] Address [address] [place] [address]. [place] [address] Care Team Providers Care Rn Orthopaedic Name Role Phone Clinic, [facility] Primary Care Provider Reason for Visit * Reason Onset Date Comments MH/CD Inpatient 02/15/2018 Encounter Details Date Type Department Care Team ([facility] Contact Info) Description 02/15/2018 Telephone [facility] Behavioral Health Intake [address] [place] [address] [phone] Generic, Behavioral Intake, MH/CD Inpatient Social History [...] ReeceRai shay Timothy - 02/15/2018 5:11 PM PRODUCT SUPPORT SALES REPRESENTATIVE S: JEANMARIE called to place a 22 [...] 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 Pt had made multiple suicide attempts while in the program and was sent to the hospital for ingestingseveral pills. UDS is positive for cannabinoids. Pt reports her last use of cannabis and alcohol was last week. Pt has been medically cleared in the ED. A: Voluntary. R: 4A/Dongre. call worker person paged at 1802. call worker person approved admission at 1810. Unit notified at 1814. ED notified at 1825. UCT SUPPORT SALES REPRESENTATIVE documented in this encounter Plan of Treatment Not on file documented as of this encounter Visit Diagnoses Not on filedocumented in this encounter Care Teams Rn Orthopaedic Relationship Specialty Start Date End Date [facility], [address] [address] PCP - General 02/25/12 documented as of this encounter
--- OUTSIDE RECORDS SUMMARY | 2023-09-25 04:42 | XMS_ITS | Clinical Summary ---
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
--- OUTSIDE RECORDS SUMMARY | 2023-09-25 04:42 | XMS_ITS | Clinical Summary ---
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 Status [...] Recommendations: Recommend delivery at Tertiary center [facility] (patient's choice) for history of maternal and issues in previous pregnancies. Increase the dose of ASA to 162 mg once daily (81 mg x 2) due to history of preeclampsia complicating previous . Continue Q trimester office visit with Dr. Malena Kenney, psychiatrist [place] 03/05/23, due to maternal risk factors to adjust medication as needed. Continue online therapy with Siri Tipton ([facility]) - has been seeing her weekly for the past 4 years. Continue Q trimester follow-up in [facility] Neurology due to anticipated -related issues complicating maternal health. consult in the third trimester due to previous 2 babies having breathing difficulty after (second baby diagnosed with Primary Pulmonary HTN at ). growth scans Q 8 weeks until delivery. Third trimester testing based on maternal and issues. MOM's clinic care coordinators will arrange the transfer of care to [facility] after discussing with you at an appropriate time and arrange clinic appointments with [facility] soon. Second opinion with service psychiatrist since she plans to deliver at [facility]. Consult with Damaris (overhead line worker) consult after the transfer of care to [facility]. Plan to use two uterotonics prophylactically with or without TXA to prevent PPH at the time of delivery in the current . Plan on early glucose test and basal preeclampsia labs at the next visit due to her risk factors. The results of the consult were communicated by this note to Dr. Orellana. RONMENTAL PROJECTS ADVISOR 03/09/2023 - 19w5d - Genny Caban RN [...] corresponding sections of the history section of [facility] chart and the [facility] Navigator for details. Assessment: Patient's perception of movement: Present. Normal movement discussed. A formal ultrasound was done at today's visit-see report. Preferred delivery location: [place]? Or [facility]? Education Some basic routine education done during assessment. See patient education section for details. Patient states that all her questions were answered. Scheduled to see Dr Damon today. After Visit Summary created, discussed and supplied to patient? Yes Is referring provider within [facility]? yes Consult note forwarded: N/A Face to Face RN time: 30 min GENNY CABAN RN 03/09/2023 2:17 PM RONMENTAL PROJECTS ADVISOR Progress Notes - OB Encounte r - [...] eat or drink, etc. Vasiliy Orellana DO RONMENTAL PROJECTS ADVISOR Progress Notes - OB Encounte r - [...] for tubal: possibly Nexplanon or copper IUD WEBLOGIC ADMINISTRATOR HX: No history of abnormal pap smears. [...] as well. 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 MENSTRUAL HISTORY: Patient's last menstrual period was [...] of estimated date of delivery: No Thalassemia (Occitan, Irish, Mediterranean, or background): MCV less than 80: No Neural tube defect (Meningomyelocele, Spina bifida, or Anencephaly): Yes (Comment: Mom of baby side of family) Congenital heart defect: Yes (Comment: Mother of baby PFO) Down syndrome: No Kwadwo-Sachs (Ashkenazi Cheondoism, Cajun, Belarusian Mauritanian): No Sujit disease (Ashkenazi Cheondoism): No Familial dysautonomia (Ashkenazi Cheondoism): No Sickle cell disease or trait (): No Hemophilia or other blood disorders: No Muscular dystrophy: No Cystic fibrosis: No Lafayette's chorea: No Intellectual disability and/or autism: No [...] . - Provided online resources such as [employer] and [employer]. Discussed gdsg-bax-jldukis medications, and follow up. - Encouraged patient to call clinic at [phone] with any vaginal bleeding, fluid leaking from [...] 01/08/2023 1:15 PM Malena Kenney MD [facility] SHAKIRA WORLEY RN .................... 12/21/2022 2:54 [...] 162.6 cm (5' 4) 03/09/2023 1:04 PM ENVIRONMENTAL PROJECTS ADVISOR Body Mass Index 26.4 03/09/2023 1:04 PM ENVIRONMENTAL PROJECTS ADVISOR Plan of Treatment Upcoming Encounters Date Type Department Care Team (Late st Contact Info) Description 10/10/2023 1:30 PM CDT Telemedicine [facility] [address] [place], [place] [id number] Sosa Suarez MD [address] [place], [place] [id number] Health Maintenance Due Date Last Done Comments [...] supervision of other normal in first trimester WEBLOGIC ADMINISTRATOR THIN PREP PAP SCREEN IMAGED Routine 11/15/2020 1:35 PM CDT Pap smear for cervical cancer screening from Last 3 Months or Most Recently Relevant to Health Maintenance Results * URINE (08/31/2023 1:08 PM CDT) ,URIN E Negative Negative 08/31/2023 1:35 PM CDT [facility] Urine URINE SPECIMEN / Unknown Non-Blood / Unknown 08/31/2023 1:08 PM CDT 08/31/2023 1:30 PM CDT Vasiliy Orellana DO URINE [facility] [address] [address], * SCAN-EVENT MONITOR (08/07/2023 12:00 AM CDT) Scanner OTHER * (ABNORMAL) Hemoglobin (07/21/2023 6:46 AM CDT) Only the most recent of2 resultswithin the time period is included. HEMOGLOBIN 10.8(L) 12.0 - 16.0 g/dL 07/21/2023 6:53 AM CDT [facility] MCV 84 80 - 100 fL 07/21/2023 6:53 AM CDT [facility] Blood BLOOD SPECIMEN / Unknown Venipuncture / Unknown 07/21/2023 6:46 AM CDT 07/21/2023 6:50 AM CDT Narrative [facility] - 07/21/2023 6:53 AM CDT day 1. Citlaly Cramer MD HEMATOLOGY [facility] SENDOUT INTERNAL ZIP [phone] [place] [address] * Treponema Pallidum (07/19/2023 10:01 PM CDT) Only the most recent of2 resultswithin the time period is included. TREPONEMA PALLIDUM Non-Reacti ve Non-Reacti ve 07/20/2023 1:59 AM CDT [facility] Blood BLOOD SPECIMEN / Unknown Venipuncture / Unknown 07/19/2023 10:01 PM CDT 07/19/2023 10:10 PM CDT Galileo Antonio MD [facility] [address] [place] [address], * TYPE & SCREEN (07/19/2023 10:01 PM CDT) ABORH O Rh Positive 07/19/2023 11:03 PM CDT [facility] BLOOD BANK ANTIBODY SCREEN Negative Negative 07/19/2023 11:[address] [facility] BLOOD BANK SPECIMEN EXPIRATION DATE/TIME 07/22/23 23:59 07/19/2023 11:[address] [facility] BLOOD B[facility] Blood BLOOD SPECIMEN / Unknown Venipuncture / Unknown 07/19/2023 10:01 PM CDT 07/19/2023 10:10 PM CDT Galileo Antonio MD BLOOD BANK [facility] BLOOD BANK [address] [place] [address] * (ABNORMAL) CBC W PLT NO DIFF (07/19/2023 10:01 PM CDT) WHITE BLOOD COUNT 10.7 4.5 - 11.0 thou/cu mm 07/19/2023 10:13 PM CDT [facility] RED BLOOD COUNT 3.81(L) 4.00 - 5.20 mil/cu mm 07/19/2023 10:13 PM CDT [facility] HEMOGLOBIN 11.2(L) 12.0 - 16.0 g/dL 07/19/2023 10:13 PM CDT [facility] HEMATOCRIT 33.3 33.0 - 51.0 % 07/19/2023 10:13 PM CDT [facility] MCV 87 80 - 100 fL 07/19/2023 10:13 PM CDT [facility] MCH 29.4 26.0 - 34.0 pg 07/19/2023 10:13 PM CDT [facility] MCHC 33.6 32.0 - 36.0 g/dL 07/19/2023 10:13 PM CDT [facility] RDW 13.0 11.5 - 15.5 % 07/19/2023 10:13 PM CDT [facility] PLATELET COUNT 264 140 - 440 thou/cu mm 07/19/2023 10:13 PM CDT [facility] MPV 9.4 6.5 - 11.0 fL 07/19/2023 10:13 PM CDT [facility] NRBC 0.0 % 07/19/2023 10:13 PM CDT [facility] ABS NRBC 0.0 thou /cu mm 07/19/2023 10:13 PM CDT [facility] Blood BLOOD SPECIMEN / Unknown Venipuncture / Unknown 07/19/2023 10:01 PM CDT 07/19/2023 10:10 PM CDT Galileo Antonio MD HEMATOLOGY Performing Organization Address [facility] Co de Phone Number [facility] SENDOUT INTERNAL ZIP [phone] [place] [address] * CREATININE (07/19/2023 10:01 PM CDT) eGFR >90 >90 mL/min/1.7 3m2 07/19/2023 10:39 PM CDT [facility] Comment:As of 2021, eG FR is calculated by the CKD-EPI creatinine equation without race adjustment. ??eGFR can be influenced by muscle mass, exercise, and diet. ??The reported eGFR is an estimation only and is only applicable if the renal function is stable. CREATININE 0.59 0.50 - 0.90 mg/dL 07/19/2023 10:39 PM CDT [facility] Blood BLOOD SPECIMEN / Unknown Venipuncture / Unknown 07/19/2023 10:01 PM CDT 07/19/2023 10:10 PM CDT Galileo Antonio MD CHEMISTRY Performing Organization Address [facility] Co de Phone Number [facility] SENDOUT INTERNAL ZIP [phone] [place] [address] * AST (SGOT) (07/19/2023 10:01 PM CDT) AST (SGOT) 23 10 - 35 IU/L 07/19/2023 10:39 PM CDT [facility] Blood BLOOD SPECIMEN / Unknown Venipuncture / Unknown 07/19/2023 10:01 PM CDT 07/19/2023 10:10 PM CDT Galileo Antonio MD CHEMISTRY Performing Organization Address City/[facility]/ZIP Co de Phone Number [facility] SENDOUT INTERNAL ZIP [phone] [place] [address] * PROTEIN/CREAT RATIO,URINE (07/19/2023 1:29 PM CDT) PROTEIN QUANT,RAND URINE 12 1 - 14 mg/dL 07/19/2023 2:02 PM CDT [facility] CREAT,RANDOM URINE 87.4 28.0 - 217.0 mg/dL 07/19/2023 2:02 PM CDT [facility] PROT/CREAT RATIO,UR 0.1 <0.2 07/19/2023 2:02 PM CDT [facility] Urine URINE SPECIMEN / Unknown Non-Blood / Unknown 07/19/2023 1:29 PM CDT 07/19/2023 1:29 PM CDT Gwendolyn Mensah BOTTOM PRECIPITATOR OPERATOR URINE [facility] SENDOUT INTERNAL ZIP [phone] [place] [address] * ECHO TTE COMPLETE WO CONTRAST (07/11/2023 12:10 PM CDT) EJECTION FRACTION 55% PROSOLV Anatomical Region Laterality Modality Ultrasound 07/11/2023 11:4 4 AM CDT Narrative 07/11/2023 1:[address], [place] [address] Main: ? Transthoracic Echo Report DAISY TRUJILLO ID: [id number] Age: 28 : 1995 Ordering Provider: DENISE KOWALSKI Exam Date: 07/11/2023 11:44 Gender: F Spout Tender: Anabell Height: 64 in BSA: 1.77 m?? BP: 111 / 68 Weight: 158 lbs BMI: 27.1 kg/m?? HR: 75 Location: [facility] Rhythm: Normal Sinus Rhythm Procedure Components: [...] Aortic Root ZScore: -1.56 Marcial Lombardi MD [facility] Accredited Site (Electronically Signed) Final Date: 11 July 2023 13:56 ICD-10 Codes: Q21.12 Procedure Note Marcial Lombardi MD - 07/11/[address], [place] [address] Main: Transthoracic Echo Report DAISY TRUJILLO Mauro ID: [id number] Age: 28 : 1995 Ordering Provider:DENISE KOWALSKI Exam Date: 07/11/2023 11:44 Gender: F Spout Tender: [facility] Height: 64 in BSA: 1.77 m?? BP: 111 / 68 Weight: 158 lbs BMI: 27.1 kg/m?? HR: 75 Location: [facility] Rhythm: Normal SinusRhythm Procedure Components: 2D [...] B PCR Negative 07/06/2023 8:35 AM CDT [facility] Other (Vaginal/Rectal) Non-Blood / Unknown 07/04/2023 11:34 AM CDT 07/04/2023 11:34 AM CDT Alicia Real NP MICROBIOLOGY [facility] [address] [place] [address], * Growth Follow Up Any Trimester (CPT 05359) (06/25/2023 3:26 PM CDT) Anatomical Region Laterality [...] for the present indication. -Weekly visits with [facility] as she is transferring care [...] pulmonary hypertension: Plan is for delivery at [place] to ensure all available resources are present. Medical Decision Making: Moderate Level 33682 ?Moderate number/complexity of problems including an undiagnosed [...] Services Provided: Procedures Code FOLLOW UP GROWTH 74814.0 Procedure Note Denise Kowalski MD - 06/25/2023 Referred By: VASILIY ORELLANA IndicationsCode 35 weeks gestation of [id number] Hx GDM, PPH, PP Pre-E in second [...] necessary forthe present indication. -Weekly visits with [facility] as she is transferring care [...] with pulmonary hypertension: Plan is fordelivery at [place] to ensure all available resources are present. Medical Decision Making: Moderate Level 18852 Moderate number/complexity of problems including an undiagnosed [...] health, etc. Services Provided: ProceduresCode FOLLOW UP [id number] Annalisa Evans [place] * ANTI HCV (12/27/2022 11:15 AM CDT) Pathologist [facility] HEPATITIS C ANTIBODY Non-Reacti ve Non-React jv 12/28/2022 4:17 AM CDT [facility] Comment:Please note, per www .CDC.gov: [...] AM CDT Vasiliy Orellana DO [facility] [address] [place] [address], * ANTI HIV 1/2 (12/27/2022 11:15 AM CDT) Pathologist [facility] HIV-1/HIV-2 SCREEN Non-Reacti ve Non-Reacti ve 12/28/2022 4:17 AM CDT [facility] Comment:HIV-1 p24 and HIV-1/ HIV-2 Ab Not Detected. Blood BLOOD SPECIMEN / Unknown Venipuncture / Unknown 12/27/2022 11:15 AM CDT 12/27/2022 11:18 AM CDT Vasiliy Orellana DO SEND OUTS [facility] [address] [place] [address], * WEBLOGIC ADMINISTRATOR THIN PREP PAP SCREEN IMAGED (11/15/2020 1:35 PM CDT) Case Report Gynecologic Cytology Report ? Case: [id number] ? Authorizing Provider: ??Juliet Farrell ? Collected: ? 11/15/2020 1335 ? MD Evelyn ? Ordering Location: ? [facility] ?? Received: ?11/15/2020 1505 ? Clinic ? First Screen: ?BacNick groves ? Specimen: ?WEBLOGIC ADMINISTRATOR ThinPrep Vial Screening, Cervical ? 11/25/2020 2:35 PM CDT [facility]- ENTRAL LABORATORY INTERPRETATION/ RESULT NEGATIVE FOR INTRAEPITHELIAL LESION OR MALIGNANCY (NIL) (none) 11/25/2020 2:35 PM CDT [facility]- ENTRAL LABORATORY IMEN ADEQUACY Satisfactory for evaluation Endocervical component present 11/25/2020 2:35 PM CDT [facility]- ENTRAL LABORATORY HPV REQUEST HPV if ASCUS 11/25/2020 2:35 PM CDT [facility]-C ENTRAL LABORATORY Date of LMP 11/02/2020 11/25/2020 2:35 PM CDT [facility]-C ENTRAL LABORATORY Last Pap Date 03/19/18 11/25/2020 2:35 PM CDT [facility]-C ENTRAL LABORATORY Last Pap Result NIL 2:35 PM CDT [facility]- ENTRAL LABORATORY Abnormal Pap or [place] Bx in last 5 years No 11/25/2020 2:35 PM CDT [facility]-C ENTRAL LABORATORY Menstrual Status Regular Periods 11/25/2020 2:35 PM CDT [facility]- ENTRAL LABORATORY [place] Bx Done Today No 11/25/2020 2:35 PM CDT [facility]-C ENTRAL LABORATORY Additional Information None given 11/25/2020 2:35 PM CDT [facility]- ENTRAL LABORATORY Comment: Cytology is screened at [facility], Central Laboratory - [address], [place] [address] and [facility] Laboratory - [address], [place] [address] and [facility] Laboratory - [address], [place] [address] Interpreted at [employer], Central Laboratory - [address], [place] [address] Automated Review Successful 11/25/2020 2:35 PM CDT [facility]C ENTRAL LABORATORY Comment:Specimen processed s uccessfully by automated scale tank operator device, ThinPrep Imaging System, [employer] Note The pap test is a [...] and malignant lesions. 11/25/2020 2:35 PM CDT [facility]- ENTRAL LABORATORY Other (Cervical) Non-Blood / Unknown 11/15/2020 1:35 PM CDT 11/15/2020 3:05 PM CDT Juliet Farrell MD PATHOLOGY/ CYTOLOGY [facility] [address] [place] [address], [place] from Last 3 Months or Most [...] 4:00 PM 07/14/2011 5:31 PM Care Teams Electric Shipyard Operator Relationship Specialty Start Date End Date Vasiliy Orellana DO [address] [place] [address] PCP - General Family Practice 08/28/23 Malena Kenney MD [address] [place] [address] Psychiatry 01/20/22 Vasiliy Orellana DO [address] [place] [address] Referring Provider Family Practice 01/26/23 Sosa Suarez MD [address] [place] [address] Psychiatry 04/04/23 Godfrey Neil MD [address] [facility] [address] [place] [address] Neurology Neurology 05/04/23
--- OUTSIDE RECORDS SUMMARY | 2023-09-25 04:42 | XMS_ITS | Referral Summary ---
Author Organization [facility] Address [address] [place] [address] Care Team Providers Care Police Lieutenant Name Role Phone Clinic, [facility] Primary Care Provider Allergies Active Allergy Reactions [...] Advance Directives For more information, please contact: [phone] * Full Code (Latest Code Status on [...] PM 03/13/2012 11:27 AM Care Teams Police Lieutenant Relationship Specialty Start Date End Date [facility], [address] [address] PCP - General 02/25/12
[2023-09-25 05:41] LABS: Basophils Absolute Auto 0.03 K/uL (0.00-0.30); Basophils Percent Auto 0.3 % (0.0-3.0); Eosinophils Absolute Auto 0.14 K/uL (0.00-0.50); Eosinophils Percent Auto 1.4 % (0.0-7.0); Hematocrit 38.4 % (33.0-51.0); Hemoglobin* 12.4 gm/dL (12.0-16.0); Immature Granulocytes Abs Auto 0.03 K/uL (0.00-0.30); Immature Granulocytes Pct Auto 0.3 %; Lymphocytes Percent Auto 24.8 % (20-44); Mean Corpuscular HGB Conc 32 gm/dL (32-36); Mean Corpuscular Hemoglobin 28 pg (26-34); Mean Corpuscular Volume 86 fL (80-100); Monocytes Percent Auto 8.8 % (0.0-11.0); Neutrophils Absolute Auto 6.23 K/uL (1.7-7.0); Neutrophils Percent Auto 64.4 % (42.0-72.0); Platelet Count* 295 K/uL (140-440); Red Blood Count 4.49 m/uL (4.00-5.20); White Blood Count* 9.68 K/uL (4.50-11.00)
[2023-09-25 05:45] LABS: Slide Review Reflex No
[2023-09-25 05:58] LABS: Albumin* 4.8 g/dL (3.3-5.0)
[2023-09-25 05:59] LABS: Chloride* 107 mmol/L (96-114); Potassium* 3.7 mmol/L (3.6-5.1); Sodium* 141 mmol/L (135-149)
[2023-09-25] MEDS: OLANZapine 5 MG TAB.RAPDIS 10 MG PO ×2 (05:59→17:23)
[2023-09-25 06:01] LABS: Alanine Aminotransferase* 79 U/L (4-35); Alkaline Phosphatase* 84 U/L (40-150); Aspartate Amino Transferase* 51 U/L (12-35); Bilirubin Direct* 0.4 mg/dL (0.0-0.5); Bilirubin Total* 0.7 mg/dL (0.1-1.5); Creatinine* 0.7 mg/dL (0.5-1.5); Est. Creatinine Clearance* 98.98; Estimated Glomerular Filt Rate 121 ml/min; Total Protein* 7.4 g/dL (6.0-8.3)
[2023-09-25 06:02] LABS: Anion Gap 11 mEq/L (7-15); Blood Urea Nitrogen* 12 mg/dL (5-24); Calcium* 9.4 mg/dL (8.4-10.6); Carbon Dioxide* 23 mmol/L (20-32); Glucose* 105 mg/dL (60-115)
[2023-09-25 06:03] LABS: Ethanol* < 0.01 % (0.01-0.03); Salicylate* < 1.0 mg/dL (1.0-10)
[2023-09-25 06:32] LABS: Thyroid Stimulating Hormone* 0.746 uIU/mL (0.270-4.20)
--- NOTE | 2023-09-25 10:27 | PC.SOCIAL ---
Social work: Checked availability on the [place] [facility] bed locater website. Called [facility] and provided information to intake. They requested information be faxed to [place] for evaluation for admit. Information faxed and awaiting call back with decision on admit. automotive worker foreman to follow up as needed.
[2023-09-25 14:00] VITALS: BP 110/63; PULSE 71; RESP 17; TEMP 36.4
[2023-09-25 14:29] LABS: Amphetamine Screen Urine Negative (Negative); Barbiturate Screen Urine Negative (Negative); Benzodiazepines Screen Urine Negative (Negative); Cannabinoid Screen Urine POSITIVE (Negative); Cocaine Screen Urine Negative (Negative); Methadone Screen Urine Negative (Negative); Methamphetamines Screen Urine Negative (Negative); Opiate Screen Urine Negative (Negative); Oxycodone Screen Urine Negative (Negative); Phencyclidine Screen Urine Negative (Negative); Tricyclic Antidepressant Urine Negative (Negative)
--- NOTE | 2023-09-25 16:53 | ED.NURSE ---
72 hour hold paper work filled out by Dr. Espitia, copy of rights were read and given to patient. She is cooperative and agreeable to placement. Ordered a meal and ate 100%.
--- NOTE | 2023-09-25 19:36 | ED.NURSE ---
Nurse to Nurse report called to [facility]. Belonging with patient were sent with her. Her cousin was here at time of transport. EMS did request to administer IV Ativan as patient became tearful and anxious with news of placement in [place].
== END 2023-09-25 20:06 | disposition short-term general hospital (02) ==
LOC: ED 04:40
PROVIDERS: Emergency Provider Family Medicine; PCP Family Medicine
DX: F29 Unspecified psychosis not due to a substance or known physiological condition (principal)
CPT/HCPCS: 36415; 80048; 80076; 80143; 80179; 80306; 82077; 84443; 85025; 99284; 99285; A9270

== ENCOUNTER 2023-09-25 18:00 | Outpatient (CLI) | payer BC, SELFPAY ==
--- OUTSIDE RECORDS SUMMARY | 2023-09-30 07:10 | XMS_ITS | Clinical Summary ---
Author Organization [place] Address [address] [place] [address] Care Team Providers Care Principal Network Engineer Name Role Phone [facility] Primary Care Provider Allergies Active Allergy Reactions [...] as needed Active norethindrone-ethiny l estradiol (MICROGESTIN .5) 1.5-30 MG-MCG tablet Take 1 tablet by [...] Advance Directives For more information, please contact: [phone] * Full Code (Latest Code Status on [...] 11:30 PM 03/13/2012 11:27 AM Care Teams Principal Network Engineer Relationship Specialty Start Date End Date [facility], [address] [address] PCP - General 02/25/12
--- OUTSIDE RECORDS SUMMARY | 2023-09-30 07:10 | XMS_ITS | Encounter Summary ---
Author Organization [place] Address [address] [place] [address]. 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 Dr Law [...] the wall today. B: Pt was at [facility] for 28 days then dc'd to [facility] for 4 weeks. Hx etoh and depression. Pt has run x 5 from [facility] and makes suicidal statements. A: Er doctor talked to mom. Mom is okay with her coming in. Pt is cooperative. Mom's cell is [phone], her name is Hoa. She is expecting a call from the unit [employer]. R: Dr Kurt REY RANCE EXECUTIVE documented in this encounter Plan of Treatment Not on file documented as of this encounter Visit Diagnoses Not on filedocumented in this encounter Care Teams Paint Spraying Machine Operator Helper Relationship Specialty Start Date End Date [facility], [address] [address] PCP - General 02/25/12 documented as of this encounter
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
--- OUTSIDE RECORDS SUMMARY | 2023-09-30 07:10 | XMS_ITS | Encounter Summary ---
Author Organization [facility] Address [address] [place] [address]. [place] [address] Care Team Providers Care Lead Sales Consultant Name Role Phone Clinic, [facility] Primary Care Provider Reason for Visit * Reason Onset Date Comments MH/CD Inpatient 02/15/2018 Encounter Details Date Type Department Care Team ([facility] Contact Info) Description 02/15/2018 Telephone [facility] Behavioral Health Intake [address] [place] [phone] Generic, Behavioral Intake, MH/CD Inpatient Social History [...] ReeceRai shay Timothy - 02/15/2018 5:11 PM CABLE RIGGER S: JEANMARIE called to place a 22 [...] 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 Pt had made multiple suicide attempts while in the program and was sent to the hospital for ingestingseveral pills. UDS is positive for cannabinoids. Pt reports her last use of cannabis and alcohol was last week. Pt has been medically cleared in the ED. A: Voluntary. R: 4A/Dongre. computer training specialist paged at 1809. computer training specialist approved admission at 1810. Unit notified at 1814. ED notified at 1825. E RIGGER documented in this encounter Plan of Treatment Not on file documented as of this encounter Visit Diagnoses Not on filedocumented in this encounter Care Teams Lead Sales Consultant Relationship Specialty Start Date End Date [facility], [address] [address] PCP - General 02/25/12 documented as of this encounter
--- OUTSIDE RECORDS SUMMARY | 2023-09-30 07:10 | XMS_ITS | Referral Summary ---
Author Organization [place] Address [address] [place] [id number] Care Team Providers Care Visitor Information Assistant Name Role Phone Clinic, [facility] Primary Care Provider Allergies Active [...] as needed Active norethindrone-ethiny l estradiol (MICROGESTIN 1.5) 1.5-30 MG-MCG tablet Take 1 tablet by [...] Advance Directives For more information, please contact: [phone] * Full Code (Latest Code Status on [...] 11:30 PM 03/13/2012 11:27 AM Care Teams Visitor Information Assistant Relationship Specialty Start Date End Date [facility], [address] [address] PCP - General 02/25/12
== END 2023-09-25 18:01 | disposition home or self-care (01) ==
LOC: AMB 09-30 07:07
PROVIDERS: PCP Family Medicine; Visit Provider Family Medicine
DX: O99.345 Other mental disorders complicating the puerperium (principal); F53.0 Postpartum depression
CPT/HCPCS: A0425; A0433